=== PATIENT | female | born 1940 | race Hispanic/Latino ===

== ENCOUNTER 2016-09-18 14:35 | Observation (INO) | payer MEDICARE, BC ==
[2016-09-18 14:35] VITALS: BMI 26.6
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
[2016-09-18 16:49] LABS: ADD MANUAL DIFF? NO
[2016-09-18 17:00] LABS: BASO # 0.01 K/mm3 (0.0-2.0); BASO % 0.1 % (0.0-3.0); EOS % 0.5 % (1.5-5.0); GRAN # 6.95 (1.4-6.5); GRAN % 78.8 % (50.0-68.0); HEMATOCRIT 40.9 % (36.0-48.0); LYMPH # 1.2 (1.2-3.4); LYMPH % 13.2 % (22.0-35.0); MEAN CELL VOLUME 92.1 fL (80.0-105.0); MEAN CORPUSCULAR HEMOGLOBIN 29.1 pg (25.0-35.0); MEAN CORPUSCULAR HGB CONC 31.5 g/dl (31.0-37.0); MEAN PLATELET VOLUME 9.8 fl (7.0-11.0); MONO # 0.7 (0.1-0.6); MONO % 7.4 % (1.0-6.0); PLATELET COUNT 286 10^3/uL (120.0-450.0); RED CELL DISTRIBUTION WIDTH 13.9 % (11.5-14.5); WHITE BLOOD COUNT 8.8 10^3/ul (4.5-11.0)
[2016-09-18 17:05] LABS: ALB/GLOB RATIO 1.2 (1.1-1.8); ALKALINE PHOSPHATASE 120 U/L (38-133); ALT/SGPT 23 U/L (7-56); AST/SGOT 25 U/L (15-39); BILIRUBIN,TOTAL 0.5 mg/dL (0.2-1.3); BLOOD UREA NITROGEN 24 mg/dL (7-21); CALCIUM 9.7 mg/dL (8.4-10.5); CARBON DIOXIDE 29 mmol/L (21-33); CHLORIDE 96 mmol/L (98-107); GFR AFRICAN-AMERICAN > 60; GLUCOSE,RANDOM 103 mg/dL (70-110); LIPASE 34 U/L (23-300); SODIUM 134 mmol/L (132-148); TOTAL PROTEIN 7.1 g/dL (5.8-8.3)
[2016-09-18 17:06] LABS: PARTIAL THROMBOPLASTIN TIME 37.1 Seconds (23.7-30.8)
--- NOTE | 2016-09-18 17:12 | RAD ---
HISTORY: cough COMPARISON: Comparison is made to 06/20/2015 FINDINGS: LUNGS: Small linear opacity at the right lung base likely atelectasis. Otherwise no significant interval change. PLEURA: No significant pleural effusion identified, no pneumothorax apparent. CARDIOVASCULAR: Normal. OSSEOUS STRUCTURES: No significant abnormalities. VISUALIZED UPPER ABDOMEN: Normal. OTHER FINDINGS: None. IMPRESSION: Linear opacity at the right lung base likely atelectasis. Otherwise no interval change.
[2016-09-18 17:20] LABS: TROPONIN I < 0.01 ng/mL
[2016-09-19] MEDS ORDERED: Levothyroxine 150 MCG TAB PO SCH (07:30)
--- NOTE | 2016-09-19 07:42 | CT ---
PROCEDURE: CT Abdomen and Pelvis without intravenous contrast HISTORY: nv COMPARISON: Comparison is made to the previous study dated 03/21/2015 TECHNIQUE: Axial and reformatted coronal and sagittal CT images of the abdomen and pelvis were obtained without IV or oral contrast administration.. Contrast Dose: 0 Radiation dose: Total exam DLP = 904.58 mGy-cm. FINDINGS: LOWER THORAX: Small to moderate size hiatus hernia is noted. Trace bilateral pleural effusion and/or pleural thickening at the lung bases is also noted. LIVER: Mild splenomegaly is seen. GALLBLADDER AND BILE DUCTS: Patient status post cholecystectomy. PANCREAS: No evidence of acute pathology in the pancreas. SPLEEN: Unremarkable. ADRENALS: Nodular appearance and mild enlargement of the adrenal glands is again noted bilaterally left more than right which could be due to adrenal hyperplasia. KIDNEYS AND URETERS: Unremarkable. No hydronephrosis. No solid mass. VASCULATURE: Unremarkable. No aortic aneurysm. BOWEL: Unremarkable. No obstruction. No gross mural thickening. Few scattered colonic diverticulosis are seen without evidence of diverticulitis. APPENDIX: No evidence of appendicitis. PERITONEUM: Unremarkable. No free fluid. No free air. LYMPH NODES: Unremarkable. No enlarged lymph nodes. BLADDER: Unremarkable. REPRODUCTIVE: Unremarkable. BONES: No evidence of acute pathology in the osseous structures. Mild levoscoliosis is seen. Mild degenerative changes. OTHER FINDINGS: None. IMPRESSION: Small to moderate size hiatus hernia appears larger compared to the previous exam. Colonic diverticulosis without evidence of diverticulitis. Stable mildly enlarged nodular adrenal glands likely represent benign hyperplasia. Otherwise no evidence of acute pathology in the abdomen and pelvis. Preliminary report was submitted by [facility].
[2016-09-19 08:21] VITALS: O2SAT 95
--- NOTE | 2016-09-19 10:43 | RAD ---
HISTORY: cough COMPARISON: Comparison is made to the previous study dated 09/18/2016 FINDINGS: LUNGS: No significant interval change in the lungs. PLEURA: No significant pleural effusion identified, no pneumothorax apparent. CARDIOVASCULAR: The cardiac silhouette is mildly enlarged. OSSEOUS STRUCTURES: No significant abnormalities. VISUALIZED UPPER ABDOMEN: Normal. OTHER FINDINGS: None. IMPRESSION: No significant interval change compared to the previous study.
[2016-09-19 12:59] VITALS: BP 153/73; PULSE 12; RESP 20; TEMP 98.7
--- NOTE | 2016-09-19 15:05 | CON ---
DATE: 09/19/2016 INDICATIONS: Chest pain. HISTORY OF PRESENT ILLNESS: This is a 76-year-old group home resident who was brought to the Emergency Room yesterday because of sudden onset of nausea, vomiting, and chest discomfort. The information is mostly from the hospital record, the patient is a very limited historian. She does recall vomiting and not feeling well. According to the record, there was chest discomfort reported. She does not have chest pain today. She also denies shortness of breath and other cardiac symptoms. She is resting comfortably in bed. There has been no further vomiting. There is no fever, chills, cough, sputum production, hemoptysis, abdominal pain, nausea, vomiting this morning, diarrhea , constipation, or melena. There is no orthopnea, PND, syncope, presyncope, lightheadedness, dizziness, vertigo, palpitations, edema or claudication. PAST MEDICAL HISTORY: Obtained from the old record. There is a history of bipolar disorder, psychiatric illness, hypertension, hyperlipidemia, hypothyroidism, osteoarthritis chiefly involving the knees, urinary tract infection, and there is a hiatal hernia on her CAT scan. There is no history of rheumatic fever, myocardial infarction, angina, congestive heart failure, arrhythmia, diabetes, stroke, TIA, or gout. MEDICATIONS: At the time of admission, her medications include calcium and vitamin D, Depakote, trazodone, Lipitor, a multivitamin, Seroquel and Synthroid. ALLERGIES: SHE NOTES AN ALLERGY TO CODEINE. SOCIAL HISTORY: She lives in a group home. She does not smoke cigarettes or drink alcohol. FAMILY HISTORY: Not obtainable. REVIEW OF SYSTEMS: A 10-point review of systems is limited, but otherwise unremarkable except as noted above. PHYSICAL EXAMINATION: GENERAL: She is a well-developed elderly woman lying in bed, in no acute distress. VITAL SIGNS: Unremarkable. She is in sinus rhythm at 75 beats per minute. She is afebrile, blood pressure 126/62, respirations 18, O2 sat 95-100% on room air. HEENT: Reveals no neck vein distention, thyromegaly, or carotid bruits. Mucous membranes are moist. Conjunctivae are pink. NECK: Supple. CHEST: Lung hernandez clear. HEART: Revealed normal first and second heart sounds without murmur, gallop, rub or click. ABDOMEN: Soft, bowel sounds are present. No mass, organomegaly, tenderness, rebound, or guarding. No CVA tenderness. No palpable abdominal aortic aneurysm. EXTREMITIES: Revealed no cyanosis, clubbing, or edema. NEUROLOGIC: She is awake, alert and oriented. SKIN: Warm and dry. No rash or cellulitis. PSYCHIATRIC: Normal as to mood and affect. She seems to have poor memory. LABORATORY AND IMAGING: A chest x-ray was a portable study. There was atelectasis at the right base, otherwise unremarkable chest x-ray which was unchanged. EKG demonstrates regular sinus rhythm and is within normal limits. CBC is unremarkable. PT, PTT and INR unremarkable. Electrolytes, BUN, creatinine, blood sugar, LFTs unremarkable. CK 50. Troponin less than 0.01. Lipase 34. IMPRESSION: The patient is a 76-year-old woman, group home resident with psychiatric disorder, admitted with an episode of sudden onset nausea, vomiting , chest discomfort at the group home with a benign electrocardiogram and a negative first troponin. The symptoms have resolved at this time. An echocardiogram 2 years ago demonstrated normal left ventricular function with mild to moderate tricuspid regurgitation and pulmonary hypertension noted. At this time, I have ordered a repeat EKG for the morning. A troponin is pending. If these are unremarkable, I would consider the episode to have been an isolated episode of gastrointestinal symptoms and I would not pursue any additional cardiac studies unless symptoms recur. I anticipate early return to her group home and continuation of her usual medications. Seth Miramontes MD cc: [id number] TT: 09/19/2016 15:05:05 Confirmation # [id number] Dictation # [id number] DESHPANDE
--- NOTE | 2016-09-19 17:48 | CARD ---
APPROVED REPORT EKG Measurement Heart [id number] VA [id number] <Conclusion> Normal sinus rhythm Normal ECG
--- NOTE | 2016-09-19 18:12 | CARD ---
APPROVED REPORT EKG Measurement Heart [id number] TN [id number] <Conclusion> Normal sinus rhythm Normal ECG
--- NOTE | 2016-09-19 21:10 | HP ---
CHIEF COMPLAINT AND HISTORY OF PRESENT ILLNESS: This is a 76-year-old female who is [facility], because of chest pain. The patient was having her lunch and she developed retr osternal chest pain with nausea after she vomited, but it is not clear whether the chest pain started before the vomiting or after she is not able to give much of a history. She denies any headaches or dizziness, no nausea, no vomiting. REVIEW OF SYMPTOMS: Limited. ALLERGIES: CODEINE. PAST MEDICAL HISTORY: Dyslipidemia, hypertension, hypothyroidism, nephrolithiasis, anxiety, depress ion, GERD. PAST SURGICAL HISTORY: Appendectomy, cholecystectomy. HOME MEDICATIONS: Synthroid. FAMILY HISTORY: Unable to assess. SOCIAL HISTORY: Unable to assess. PHYSICAL EXAMINATION: VITAL SIGNS: Temperature 98.7, pulse of 75, blood pressure 126/62, respirations 18, O2 saturation 95 %. GENERAL: The patient comfortable, in no acute distress. HEENT: Anicteric sclerae. Moist mucosa. NECK: No JVD or adenopathy. CARDIAC: S1/S2. No murmurs. No rubs. Regular. RESPIRATORY: Clear to auscultation bilaterally. No wheezes, rales, or rhonchi. Good air entry. ABDOMEN: Bowel sounds are positive, soft, nontender, and nondistended. EXTREMITIES: No edema. Has 1+ pulses. PSYCHIATRIC: She is alert, awake, and oriented x 1. She has no hallucinations. She denies depressi on. LABORATORY DATA: White count of 8.8, hemoglobin 12.9, platelet count 286. INR is 1.0. She has 2 tr oponins that are negative. Creatinine 0.7. Chest x-ray shows linear opacity at the right lung base. The CT shows small to moderate-sized hiatal hernia. Appears large volume compared to the previous ex am. ECG shows sinus rhythm at 69, no ST-T changes, QTc 415. ASSESSMENT: 1. Chest pain, atypical. 2. Vomiting. 3. Hypertension. 4. Dyslipidemia. 5. Anxiety PLAN: The patient was admitted to the hospital. She was given aspirin, Protonix, nitroglycerin. Sh e was comfortable. She was seen by Dr. Miramontes from Cardiology. She is chest pain free. She most li rito had symptoms secondary to her nausea and vomiting after she ate. She is going to be discharged to the facility at Dr. Kulwinder Auguste cleared the patient to be discharged. Sj Bolden MD cc: [id number] TT: 09/19/2016 21:09:26 ln
[2016-09-19] MEDS ORDERED: Divalproex 500 mg ER (ONCE DAILY formulation) PO SCH (22:00)
== END 2016-09-19 17:45 ==
LOC: ED 14:35 → ERH 18:58 → 2RSO 09-19 04:11
PROVIDERS: ADMIT Internal Medicine Nephrology; ATTEND Internal Medicine Nephrology
DX: R07.89 Other chest pain (principal); I10 Essential (primary) hypertension; E78.5 Hyperlipidemia, unspecified; F41.9 Anxiety disorder, unspecified; K44.9 Diaphragmatic hernia without obstruction or gangrene; K57.90 Diverticulosis of intestine, part unspecified, without perforation or abscess without bleeding; K21.9 Gastro-esophageal reflux disease without esophagitis; E03.9 Hypothyroidism, unspecified; F31.9 Bipolar disorder, unspecified; M17.0 Bilateral primary osteoarthritis of knee; I36.1 Nonrheumatic tricuspid (valve) insufficiency; I27.2 Other secondary pulmonary hypertension; Z87.442 Personal history of urinary calculi; Z90.49 Acquired absence of other specified parts of digestive tract; Z88.5 Allergy status to narcotic agent
CPT/HCPCS: 36415; 71010; 74176; 80053; 82550; 83615; 83690; 84484; 85025; 85610; 85730; 93005; 96374; 96375; 99285; C9113; G0378; J2405

== ENCOUNTER 2016-11-03 23:26 | Inpatient (IN) | payer MEDICARE, BC ==
[2016-11-03 23:32] VITALS: BMI 35.1
[2016-11-04] MEDS ORDERED: Famotidine 20mg/50ml 20 MG/50 ML BAG IV STA (00:03)
--- NOTE | 2016-11-04 00:14 | ED PDOC ---
Arrival/HPI - General Chief Complaint: Chest Pain Time Seen by Provider: 11/03/16 23:40 Historian: Patient - History of Present Illness Narrative History of Present Illness (Text): 11/04/16 00:10 A 76 year old female presents to the emergency department by EMS. Patient reports one episode of vomiting, non-bilious, non-bloody. Patient also notes retrosternal and epigastric discomfort, that feels similar to previous. Patient denies any other complaints at this time. Symptom Onset: Sudden Symptom Course: Unchanged Activities at Onset: Rest Modifying Factors (Text): none Context: Home Past Medical History - Provider Review Nursing Documentation Reviewed: Yes - Past History Past History: Non-Contributing - Infectious Disease Hx of Infectious Diseases: None - Tetanus Immunization Tetanus Immunization: Unknown - Reproductive Menopause: Yes - Past Medical History Past Medical History: Unable to Obtain - Cardiac Hx Cardiac Disorders: No Hx Congestive Heart Failure: No Hx Hypertension: Yes - Pulmonary Hx Chronic Obstructive Pulmonary Disease (COPD): No - Neurological Hx Neurological Disorder: No - HEENT Hx HEENT Disorder: No - Renal Hx Renal Failure: No - Endocrine/Metabolic Hx Diabetes Mellitus Type 1: No Hx Diabetes Mellitus Type 2: No Hx Hypothyroidism: Yes - Hematological/Oncological Hx Blood Disorders: No - Integumentary Hx Dermatological Disorder: No Hx Basal Cell Carcinoma: No Hx Eczema: No Hx Melanoma: No Hx Psoriasis: No Hx Squamous Cell Carcinoma: No - Musculoskeletal/Rheumatological Hx Falls: No - Gastrointestinal Hx Gastrointestinal Disorders: Yes Hx Colostomy: No Hx Crohn's Disease: No Hx Diverticulitis: No Hx Gall Bladder Disease: No Hx Gastroesophageal Reflux: Yes Hx Ileostomy: No Hx Liver Failure: No Hx Pancreatitis: No HX Swallowing Problems: No - Genitourinary/Gynecological Hx Sexually Transmitted Diseases: No - Psychiatric Hx Bipolar Disorder: Yes Hx Depression: Yes Hx Substance Use: No - Past Surgical History Past Surgical History: Unable to Obtain - Surgical History Hx Appendectomy: Yes - Anesthesia Hx Anesthesia: Yes Hx Anesthesia Reactions: No Hx Malignant Hyperthermia: No - Suicidal Assessment Feels Threatened In Home Enviroment: No Family/Social History - Physician Review Nursing Documentation Reviewed: Yes Family/Social History: No Known Family HX Smoking Status: Current Some Days Smoker Hx Alcohol Use: No Hx Substance Use: No Hx Substance Use Treatment: No Allergies/Home Meds Allergies/Adverse Reactions: Allergies codeine Allergy (Verified 07/20/15 06:07) RASH Home Medications: Home Meds Medication Instructions Recorded Confirmed Levothyroxine [Synthroid] 125 mcg PO ACB 06/20/15 11/03/16 Benztropine [Cogentin] 1 tab PO BID 11/03/16 11/03/16 Dextran 70/Hypromellose 2 drop BOTHEYES BID 11/03/16 11/03/16 [Artificial Tears] FLUoxetine [Prozac] 1 cap PO DAILY 11/03/16 11/03/16 Lisinopril [Zestril] 1 tab PO DAILY 11/03/16 11/03/16 OLANZapine [Zyprexa] 1 tab PO DAILY 11/03/16 11/03/16 Review of Systems - Physician Review All systems were reviewed & negative as marked: Yes Physical Exam - Physical Exam Narrative Physical Exam (Text): 11/04/16 00:12 - Review of Systems Constitutional: Normal. absent: Fatigue, Weight Change, Fevers Eyes: Normal ENT: Normal Respiratory: Normal absent: SOB, Cough, Sputum Cardiovascular: Present: retrosternal/epigastric chest discomfort absent: Palpitations, Syncope Gastrointestinal: Present: vomiting (non-bilious, non-bloody) absent: Abdominal pain, Diarrhea, Nausea Genitourinary: Normal. absent: Dysuria, Frequency, Hematuria Musculoskeletal: Normal. absent: Arthralgias, Back Pain, Neck Pain Skin: Normal Neurological: Normal absent: Focal Weakness Endocrine: Normal Hemo/Lymphatic: Normal Psychiatric: Normal - Physical exam Patient appears age appropriate, speaking full sentences without difficulty - Systems Exam Head: Present: Atraumatic, Normocephalic Pupils: Present: PERRL Extraocular Muscles: Present: EOMI Conjunctiva: Present: Normal Mouth: Present: Moist Mucous Membranes Neck: Present: Normal Range of Motion. No: MIDLINE TENDERNESS, Paraspinal Tenderness Respiratory/Chest: Present: Clear to Auscultation, Good Air Exchange. No: Respiratory Distress, Accessory Muscle Use, Tachypneic Cardiovascular: Present: Regular Rate and Rhythm, Normal S1, S2, Peripheral Pulses Present. No: Murmurs Abdomen: Present: Normal Bowel Sounds, No: Tenderness, Peritoneal Signs, Rebound, Guarding, Distention Back: Present: Normal Inspection. No: Midline Tenderness, Paraspinal Tenderness Upper Extremity: Present: Normal Inspection. No: Cyanosis, Edema Lower Extremity: Present: Normal Inspection. No: Edema Neurological: Present: GCS=15, Speech Normal, cranial nerves II through XII fully intact with no cerebellar abnormality, neuro-sensory fully intact. No focal neurological deficits. Skin: Present: Warm, Dry, Normal Color. No: Rashes Lymphatic: Present: OX3, NI, NC Psychiatric: Present: Alert No: anxiety Vital Signs Reviewed: Yes Vital Signs Temp Pulse Resp BP Pulse Ox 11/04/16 00:31 76 22 113/81 96 11/03/16 23:44 97.5 F L 79 16 138/86 93 L Temperature: Afebrile Blood Pressure: Normal Pulse: Regular Respiratory Rate: Normal Appearance: Positive for: Well-Appearing, Non-Toxic, Comfortable Pain Distress: None Mental Status: No: Agitated, Lethargic Medical Decision Making ED Course and Treatment: 11/04/16 00:10 Impression: 76 year old female with retrosternal/epigastric chest discomfort, and one episode of vomiting (non-bilious, non-bloody). On physical exam, patient had no acute findings. Differential Diagnosis include but are not limited to: Plan: -- CT abd/pelvis -- Chest xray -- Labs -- Aspirin, Zofran, Pepcid -- Reassess and disposition Prior Visits: Notes and results from previous visits were reviewed. Patient last seen in the emergency department on 09/18/16 for evaluation of chest pain. Case was discussed with Dr. Bolden, tele obs. Patient was discharged on 09/19/16. Patient was diagnosed with atypical chest pain. Progress Notes: CT abd/pelvis: IMPRESSION: Distal esophageal wall thickening and moderately large hiatal hernia ; prior cholecystectomy; adrenal nodules; diverticulosis without CT findings of diverticulitis; no acute solid visceral abnormality, no bowel obstruction Additional findings as described above. Dictated and Authenticated by: Sonali Horan MD 11/04/2016 1:19 AM Eastern Time ([place] & [place]) Chest xray: Chest xray shows no cardiomegaly, no pneumothorax, no effusion, no infiltrates. 11/04/16 01:[address] Bolden, who is aware and agrees with observation on Tele. I have discussed the results and plan with the patient, who expresses understanding. Patient given the opportunity to ask question, all questions were answered and there is agreement with the plan to be admitted to the hospital. - Lab Interpretations Lab Results: 11/04/16 00:10 11/04/16 00:10 Lab Results 11/04/16 00:10: Sodium 136, Potassium 4.3, Chloride 99, Carbon Dioxide 27, Anion Gap 14, BUN 19, Creatinine 0.7, Est GFR ( Amer) > 60, Est GFR (Non- Af Amer) > 60, Random Glucose 115 H, Calcium 9.6, Total Bilirubin 0.7, AST 29, ALT 29, Alkaline Phosphatase 103, Lactate Dehydrogenase 560, Total Creatine Kinase 37, Troponin I < 0.01, NT-Pro-B Natriuret Pep 34.3, Total Protein 7.3, Albumin 3.8, Globulin 3.5, Albumin/Globulin Ratio 1.1, Lipase 36 11/04/16 00:10: PT 10.0, INR 0.93, APTT 33.1 H 11/04/16 00:10: WBC 6.5 D, RBC 4.36, Hgb 13.0, Hct 39.8, MCV 91.3, MCH 29.8, MCHC 32.7, RDW 14.0, Plt Count 273, MPV 9.9, Gran % 67.5, Lymph % (Auto) 23.0, Hemphill % (Auto) 7.3 H, Eos % (Auto) 2.0, Baso % (Auto) 0.2, Gran # 4.37, Lymph # 1.5, Hemphill # 0.5, Eos # 0.1, Baso # 0.01 I have reviewed the lab results: Yes - RAD Interpretation Radiology Orders: 11/04/16 00:03 CHEST PORTABLE [RAD] Stat 11/04/16 00:04 ABD & PELVIS W/O PO OR IV CONT [CT] Stat - Medication Orders Current Medication Orders: Discontinued Medications Aspirin (Aspirin Chewable) 324 mg PO STAT STA Stop: 11/04/16 00:03 Last Admin: 11/04/16 00:21 Dose: 324 mg Famotidine (Pepcid 20mg/50ml Premix) 20 mg in 50 mls @ 100 mls/hr IV STAT STA Stop: 11/04/16 00:32 Last Admin: 11/04/16 00:21 Dose: 100 mls/hr Ondansetron HCl (Zofran Inj) 4 mg IVP STAT STA Stop: 11/04/16 00:04 Last Admin: 11/04/16 00:21 Dose: 4 mg - Rockyibe Statement Singh Love All medical record entries made by the Timothy were at my direction and personally dictated by me. I have reviewed the chart and agree that the record accurately reflects my personal performance of the history, physical exam, medical decision making, and the department course for this patient. I have also personally directed, reviewed, and agree with the discharge instructions and disposition. Disposition/Present on Arrival - Present on Arrival Any Indicators Present on Arrival: No History of DVT/PE: No History of Uncontrolled Diabetes: No Urinary Catheter: No History of Decub. Ulcer: No History Surgical Site Infection Following: None - Disposition Have Diagnosis and Disposition been Completed?: Yes Diagnosis: Chest pain Disposition: HOSPITALIZED Disposition Time: 01:40 Patient Plan: Observation Condition: STABLE
[2016-11-04 00:20] LABS: ADD MANUAL DIFF? NO
[2016-11-04 00:28] LABS: BASO # 0.01 K/mm3 (0.0-2.0); BASO % 0.2 % (0.0-3.0); EOS # 0.1 (0.0-0.7); GRAN # 4.37 (1.4-6.5); GRAN % 67.5 % (50.0-68.0); HEMATOCRIT 39.8 % (36.0-48.0); LYMPH # 1.5 (1.2-3.4); MEAN CELL VOLUME 91.3 fL (80.0-105.0); MEAN CORPUSCULAR HEMOGLOBIN 29.8 pg (25.0-35.0); MEAN CORPUSCULAR HGB CONC 32.7 g/dl (31.0-37.0); MEAN PLATELET VOLUME 9.9 fl (7.0-11.0); MONO # 0.5 (0.1-0.6); MONO % 7.3 % (1.0-6.0); PLATELET COUNT 273 10^3/uL (120.0-450.0); WHITE BLOOD COUNT 6.5 10^3/ul (4.5-11.0)
[2016-11-04 00:40] LABS: INR 0.93 (0.93-1.08); PARTIAL THROMBOPLASTIN TIME 33.1 Seconds (23.7-30.8)
[2016-11-04 00:47] LABS: ALB/GLOB RATIO 1.1 (1.1-1.8); ALKALINE PHOSPHATASE 103 U/L (38-133); ALT/SGPT 29 U/L (7-56); AST/SGOT 29 U/L (15-39); BILIRUBIN,TOTAL 0.7 mg/dL (0.2-1.3); BLOOD UREA NITROGEN 19 mg/dL (7-21); CALCIUM 9.6 mg/dL (8.4-10.5); CARBON DIOXIDE 27 mmol/L (21-33); CHLORIDE 99 mmol/L (98-107); GFR AFRICAN-AMERICAN > 60; GLUCOSE,RANDOM 115 mg/dL (70-110); LIPASE 36 U/L (23-300); POTASSIUM 4.3 mmol/L (3.6-5.0); SODIUM 136 mmol/L (132-148); TOTAL PROTEIN 7.3 g/dL (5.8-8.3)
[2016-11-04 01:00] LABS: TROPONIN I < 0.01 ng/mL
--- NOTE | 2016-11-04 01:19 | CT ---
EXAM: CT Abdomen and Pelvis Without Intravenous Contrast CLINICAL HISTORY: 76 years old, female; Pain; Abdominal pain; Additional info: N/v TECHNIQUE: Axial computed tomography images of the abdomen and pelvis without intravenous contrast. This CT exam was performed using one or more of the following dose reduction techniques: automated exposure control, adjustment of the mA and/or kV according to patient size, and/or use of iterative reconstruction technique. Coronal and sagittal reformatted images were created and reviewed. EXAM DATE/TIME: 11/04/2016 12:04 AM COMPARISON: CT - ABD PELVIS W/O PO OR IV CONT 09/18/2016 5:20:17 PM FINDINGS: Lower thorax: Heart size is normal. There are coronary calcifications. There is a moderately large hiatal hernia. There is distal esophageal wall thickening. Lung bases are hyperinflated. There is dependent atelectasis and scarring. ABDOMEN: Liver: unremarkable Gallbladder and bile ducts: Gallbladder is surgically absent. Common bile duct is unremarkable. Pancreas: Pancreas is mildly atrophic. Spleen: unremarkable Adrenals: There are bilateral adrenal nodules. Kidneys and ureters: Kidneys and ureters are unremarkable. Stomach and bowel: Stomach is partially distended. Rotation is normal. There is no obstruction. Terminal ileum is unremarkable. There is a cecal diverticulum. Appendix is not visualized. There is moderate stool in the colon. There is scattered diverticulosis Appendix: See stomach and bowel PELVIS: Bladder: unremarkable Reproductive: Uterus is atrophic. There are small uterine calcifications. There are no adnexal masses. There is small calcifications in the right adnexa. ABDOMEN and PELVIS: Intraperitoneal space: There is no free air or free fluid. Bones/joints: Bony structures are osteopenic.There are degenerative changes in the osseus structures. There is ankylosis of the T6, T7 and T8 vertebral bodies. There is marked disc space narrowing L5/S1. Soft tissues: There is a small fat containing umbilical hernia Vasculature: There are vascular calcifications. Lymph nodes: There is no pathologic adenopathy. IMPRESSION: Distal esophageal wall thickening and moderately large hiatal hernia; prior cholecystectomy; adrenal nodules; diverticulosis without CT findings of diverticulitis; no acute solid visceral abnormality, no bowel obstruction Additional findings as described above.
--- NOTE | 2016-11-04 10:52 | RAD ---
HISTORY: cough COMPARISON: No prior. FINDINGS: LUNGS: No active pulmonary disease. PLEURA: No significant pleural effusion identified, no pneumothorax apparent. CARDIOVASCULAR: Normal. OSSEOUS STRUCTURES: No significant abnormalities. VISUALIZED UPPER ABDOMEN: Normal. OTHER FINDINGS: None. IMPRESSION: No active disease.
[2016-11-04] MEDS: Levothyroxine 125 MCG TAB PO SCH (11:01)
--- NOTE | 2016-11-04 12:00 | HP ---
HISTORY OF PRESENT ILLNESS: The patient is a 76-year-old who is a resident of [facility] who was transferred for evaluation because of epigastric leading to retrosternal discomfort. The p atient stated as soon as she eats, she feels a ball and thinks is moving around. Usually the pain an d discomfort is more after eating. Vomited at one time and never happened again. No history of feve r or chills. No urinary symptoms. PAST MEDICAL HISTORY: 1. Generalized osteoarthritis. 2. Bipolar disorder. 3. Paranoid schizophrenia. 4. Hypertension. 5. Hyperlipidemia. 6. Hypothyroidism. 7. Hiatal hernia by CT scan. ALLERGIES: CODEINE. MEDICATIONS: In the alf she is on Zyprexa 10 mg daily, lisinopril 10 mg daily, levothyroxin e 125 mcg daily. Prozac 20 mg daily, Cogentin 1 tablet twice a day and she is on artificial tears and atorvastatin. SOCIAL HISTORY: She is a . She occasionally smokes. Denies alcohol use. REVIEW OF SYSTEMS: Significant for retrosternal discomfort and chest discomfort. PHYSICAL EXAMINATION: GENERAL: She is awake and alert, communicative. VITAL SIGNS: She is afebrile, pulse 60, respirations 18, blood pressure 136/70. LUNGS: Bilateral fair airflow, no rhonchi or crackle. HEART: S1, S2 audible. ABDOMEN: Soft, nontender, no rebound, no guarding. She has epigastric discomfort and fullness and d oes complain of some discomfort on deep palpation, but no rebound, no guarding. NEUROLOGIC: She is awake and alert, communicative. EXTREMITIES: Bilateral leg, no edema. LABORATORY DATA: WBC 6.5, hemoglobin 13, hematocrit 39.8, platelet of 273. PT 10, INR 0.93. Chemis try: Sodium 136, potassium 4.3, chloride 99, CO2 27, BUN 19, creatinine 0.7, blood sugar 115. LFTs are within normal limits. She had CT scan of the abdomen and pelvis done that shows distal esophagea l wall thickening and moderately large hiatal hernia and prior cholecystectomy and nodule. She has d iverticulosis, but no evidence of diverticulitis. No other visual abnormality. ASSESSMENT: 1. Probably noncardiac chest pain secondary to esophagitis versus gastroesophageal reflux disease al delfina with hiatal hernia. 2. History of paranoid schizophrenia. 3. Hypertension. 4. Hyperlipidemia. PLAN: The patient will need frequent small meals. We have started her on high dose PPI. We will re sume her usual medication. Follow up her cardiac enzymes. Cardiology evaluation by Dr. Miramontes and G I evaluation by Dr. Campbell have been requested. Tasneem Lr MD cc: [phone] TT: 11/04/2016 11:59:24 jn
[2016-11-04 12:20] LABS: CHOLESTEROL 136 mg/dL (130-200)
[2016-11-04 12:40] LABS: TROPONIN I < 0.01 ng/mL
--- NOTE | 2016-11-04 15:35 | CARD ---
APPROVED REPORT EKG Measurement Heart [id number] <Conclusion> Normal sinus rhythm Normal ECG
--- NOTE | 2016-11-04 16:33 | CON ---
DATE: 11/04/2016 REQUESTING PHYSICIAN: Dr. Lr. REASON FOR CONSULTATION: Chest pain. HISTORY OF PRESENT ILLNESS: This is a 76-year-old woman with a history of hypertension, hyperlipidem ia, transferred from [facility] with complaints of retrosternal discomfort. Her symp toms seem to occur following eating where she feels a retrosternal discomfort which takes several min utes to resolve. She denies any exertional component to her symptoms. She says she has had problems with swallowing in the past. She was admitted in the past for similar symptoms as well as nausea an d vomiting. Workup at that time was unremarkable. She does have a history of hypertension and hyper lipidemia. PAST MEDICAL HISTORY: Notable for bipolar disorder, paranoid schizophrenia, osteoarthritis, hypothyr oidism. She has a history of hiatal hernia. MEDICATIONS: [facility] include Zyprexa 10 mg daily, lisinopril 10 mg daily, levothyroxine 125 mcg daily, Prozac 20 mg daily, Cogentin 1 tablet b.i.d. and Lipitor. ALLERGIES: SHE HAS REPORTED ALLERGY TO CODEINE IN THE PAST. SOCIAL HISTORY: She is a retired teacher. She originally moved here from [place]. She smoke s occasionally. She denies alcohol use. She is a . FAMILY HISTORY: Both parents are . Father from myocardial infarction in his 60s and wa s a smoker. Mother from cancer, 3 brothers are in good health. REVIEW OF SYSTEMS: A 10-point review of systems was unremarkable. PHYSICAL EXAMINATION: GENERAL: She is a middle-aged woman who appears comfortable at the present time. VITAL SIGNS: Her blood pressure is 120/70 with a pulse of 86 and sinus, respirations are 14. She is afebrile. HEENT: Normocephalic, atraumatic. NECK: Supple, no JVD noted. CHEST: A few scattered rhonchi heard. HEART: PMI in normal position. No pathologic gallops noted. ABDOMEN: Soft, nontender, normoactive bowel sounds. EXTREMITIES: No clubbing, cyanosis or edema. SKIN: Warm and dry. PSYCHIATRIC: Normal mood and affect. NEUROLOGIC: Alert and oriented x 3. No gross motor or sensory appreciable. DIAGNOSTIC DATA: White count is 6.5, hemoglobin and hematocrit 13.2 and 39.8 with a platelet count 2 73,000. PT, PTT 10 and 33, potassium 4.3, BUN and creatinine 19 and 0.7, glucose 115. Two sets of c ardiac enzymes are normal. Cholesterol was 136 with triglycerides of 101, HDL 47 with an LDL 60. El ectrocardiogram reveals sinus rhythm with no significant abnormalities. Chest x-ray reveals normal c ardiac silhouette with clear lung hernandez. IMPRESSION: 1. Retrosternal chest pain sounds most likely gastrointestinal in nature, possibly due to a dysmotil ity. Doubt cardiac cause. 2. Several cardiac risk factors, but no clear evidence of active cardiac disease present. RECOMMENDATIONS: Gastrointestinal evaluation should be entertained from a cardiac standpoint. Aria wilhelm risk factor control would be most reasonable at this time. If she develops any exertional sympto ms a stress test could be planned. From a cardiac standpoint, she appears stable for [facility]. I will be happy to see in the future if needed. Jimmy Osorio MD cc: [id number] TT: 11/04/2016 16:33:07 Confirmation # [id number] Dictation # [id number] saadia
[2016-11-04] MEDS: Pantoprazole 40 mg EC Tab PO SCH (18:47)
[2016-11-05] MEDS ORDERED: Pantoprazole 40 mg EC Tab PO SCH (06:30)
[2016-11-05] MEDS: Levothyroxine 125 MCG TAB PO SCH (07:35)
[2016-11-05 08:19] LABS: ALB/GLOB RATIO 1.3 (1.1-1.8); ALKALINE PHOSPHATASE 100 U/L (38-133); ALT/SGPT 37 U/L (7-56); AST/SGOT 21 U/L (15-39); BILIRUBIN,TOTAL 0.6 mg/dL (0.2-1.3); BLOOD UREA NITROGEN 18 mg/dL (7-21); CALCIUM 9.6 mg/dL (8.4-10.5); CARBON DIOXIDE 27 mmol/L (21-33); CHLORIDE 99 mmol/L (98-107); GFR AFRICAN-AMERICAN > 60; GLUCOSE,RANDOM 107 mg/dL (70-110); MAGNESIUM 2.2 mg/dL (1.7-2.2); POTASSIUM 4.4 mmol/L (3.6-5.0); SODIUM 136 mmol/L (132-148)
[2016-11-05 08:35] LABS: FREE T4 1.42 ng/dL (0.78-2.19)
[2016-11-05 08:49] LABS: THYROID STIMULATING HORMONE 0.35 mIU/mL (0.46-4.68)
[2016-11-05] MEDS: Pantoprazole 40 mg EC Tab PO SCH ×2 (10:01→17:24)
--- NOTE | 2016-11-05 14:42 | PN ---
DATE: 11/05/2016 The patient is a 76-year-old who was admitted with retrosternal discomfort. She had this issue befor e, but it got worse prior to coming to the hospital. She vomited once. PHYSICAL EXAMINATION: GENERAL: Today, she is still complaining of epigastric discomfort. No documented nausea or vomiting . VITAL SIGNS: She is afebrile, pulse 81, respirations 20, blood pressure 117/65. LUNGS: Bilateral fair airflow, no rhonchi or crackle. HEART: S1, S2 audible. ABDOMEN: Soft, obese, nontender, no rebound, no guarding. NEUROLOGIC: She is awake and alert, communicative. Moves all extremities. ASSESSMENT: 1. Retrosternal discomfort. No cardiac reason. 2. Gastroesophageal reflux disease. 3. Hiatal hernia. 4. Gastroesophageal junction thickening. 5. Mild dementia. 6. Hypertension. 7. Hyperlipidemia. 8. Dementia with paranoia. PLAN: I discussed with Dr. Campbell. Ideally speaking, she needs endoscopy to evaluate that gastroe sophageal junction thickening. Will talk to spray gun striper. If she is medically stable, he would like to do endoscopy. He will reach out to the family member to discuss and will make disposition plan a ccording to the decision that will be made. Tasneem Lr MD cc: [phone] TT: 11/05/2016 14:41:25 Confirmation # [id number] Dictation # [id number] en
--- NOTE | 2016-11-05 17:23 | PN ---
DATE: 11/05/2016 SUBJECTIVE: This patient was seen and evaluated earlier today, feels much better, but still has some mild discomfort. No vomiting. Tolerating the diet. PHYSICAL EXAMINATION: VITAL SIGNS: Remains afebrile, pulse 81, respirations 20, blood pressure is 117 /65. HEENT: Atraumatic, anicteric. NECK: Supple. HEART: S1, S2 heard. LUNGS: Bilateral normal vesicular breath sounds. ABDOMEN: Soft. There is a mild tenderness on deep palpation in the epigastric area. EXTREMITIES: No edema, no cyanosis. NEUROLOGIC: Alert, oriented. Moves all the extremities. IMPRESSION: Atypical chest pain. epigastric pain. Abdominal CAT scan showing some distal esophageal thickening. It could be esophageal ulcerations. His other comorbidities include a history of pancreatic cystic lesion. He was seen by Dr. Skinner at [facility] and she was told it was okay. I do not find any clear documentations of the cyst in the previous scan. Other comorbidities include hypertension, dyslipidemia and dementia. RECOMMENDATIONS: We will discuss with the family members regarding the upper GI endoscopy. Will continue the PPI. Akash Campbell MD cc: [phone] TT: 11/05/2016 17:23:29 Confirmation # [id number] Dictation # [id number] juan DESHPANDE
--- NOTE | 2016-11-05 21:27 | CON ---
DATE: 11/04/2016 This patient was seen and evaluated earlier. This 76-year-old residential resident with a past medi tawnya history of bipolar disorder, paranoid schizophrenia, hypertension, dyslipidemia, hypothyroidism, was admitted following transfer from the residential for abdominal discomfort and also vomiting. Preeti paulino complains of discomfort in the lower chest, upper abdominal area. She was concerned because of the discomfort was significant. No vomiting blood. No fever. OTHER PAST MEDICAL HISTORY: Is significant as above. The patient did have questionable pancreatic c ystic lesions in the past. An was done by Dr. Skinner more than 2 or 3 years ago. The patient had a colonoscopy done in 01/2014, and was found to have only diverticulosis, history of colon polyps. The patient was followed by Dr. Talon Stephen. The patient status post cholecystectomy. SOCIAL HISTORY: The patient is a smoker, denies alcohol use. PHYSICAL EXAMINATION: GENERAL: The patient is lying on the bed, not in acute distress. VITAL SIGNS: Temperature 97.5, pulse 72, blood pressure is 110/75, respirations 19, O2 sat is 96%. HEENT: Atraumatic, anicteric. NECK: Supple. HEART: S1, S2 heard. LUNGS: Bilateral air entry present. ABDOMEN: Soft. There was tenderness present, mild, on palpation of the epigastric area. EXTREMITIES: No cyanosis or clubbing. LABORATORY DATA: Hemoglobin 13, hematocrit 39.8, WBC 6.5, platelets 276. LFTs are essentially unrem arkable. The CT scan of the abdomen and pelvis was done, which was reviewed. This was done without p.o. or IV contrast, and found to have distal esophageal thickening and moderately large hiatus herni a. IMPRESSION: Episodes of vomiting, atypical chest pain. The patient's CAT scan shows distal thickeni ng of the esophagitis and hiatus hernia. The differential diagnosis should include esophagitis, ulce ration and neoplasia also to be considered as a differential diagnosis. The patient has been followe d by the sports complex attendant. RECOMMENDATIONS: 1. PPI 2. I will consider upper GI endoscopy after cardiac clearance. Thank you very much for allowing us to participate in the care of the patient. We will continue to c losely follow up her care and suggest further management based on the clinical course. Akash Campbell MD cc: [phone] TT: 11/05/2016 21:27:06 Confirmation # [id number] Dictation # [id number] dn
--- NOTE | 2016-11-05 23:53 | CP.PCM.PN ---
Subjective - Date & Time of Evaluation Date of Evaluation: 11/05/16 Time of Evaluation: 23:43 - Subjective Subjective: Patient was seen at bedside because as per nurse her mental status has changed. When questions were asked to check status of orientation patient started giving answers that were not consistent. Finger stick was 129 mg%. Medical record was reviewed. This 76 year old white woman was admitted epigastric / retrosternal pain, esophagitis, GERD. Has PMH of HTN, HLD, osteoarthritis, bipolar disorder, schizophrenia, hypothyroidism. Objective - Vital Signs/Intake and Output Vital Signs (last 24 hours): Temp Pulse Resp BP Pulse Ox 98 F 77 18 133/80 96 11/05/16 19:30 11/05/16 22:00 11/05/16 19:30 11/05/16 19:30 11/05/16 06:00 - Medications Medications: Current Medications Atorvastatin Calcium (Lipitor) 20 mg PO DAILY [facility] Last Admin: 11/05/16 10:00 Dose: 20 mg Benztropine Mesylate (Cogentin) 1 mg PO BID [facility] Last Admin: 11/05/16 17:24 Dose: 1 mg Fluoxetine HCl (Prozac) 20 mg PO DAILY [facility] Last Admin: 11/05/16 10:00 Dose: 20 mg Levothyroxine Sodium (Synthroid) 125 mcg PO ACB [facility] Last Admin: 11/05/16 07:35 Dose: 125 mcg Lisinopril (Zestril) 20 mg PO DAILY [facility] Last Admin: 11/05/16 10:01 Dose: 20 mg Olanzapine (Zyprexa) 10 mg PO DAILY [facility] PRN Reason: Protocol Last Admin: 11/05/16 10:00 Dose: 10 mg Pantoprazole Sodium (Protonix Ec Tab) 40 mg PO BID [facility] Last Admin: 11/05/16 17:24 Dose: 40 mg - Labs Labs: 11/05/16 07:57 PT 10.0 Seconds (9.9-11.8) 11/04/16 00:10 INR 0.93 (0.93-1.08) 11/04/16 00:10 APTT 33.1 Seconds (23.7-30.8) H 11/04/16 00:10 - Constitutional Appears: Well, No Acute Distress - Eye Exam Eye Exam: Normal appearance - ENT Exam ENT Exam: Normal External Ear Exam - Neck Exam Neck Exam: Normal Inspection - Respiratory Exam Respiratory Exam: NORMAL BREATHING PATTERN - Cardiovascular Exam Cardiovascular Exam: absent: JVD - GI/Abdominal Exam GI & Abdominal Exam: absent: Distended - Rectal Exam Rectal Exam: Deferred - Extremities Exam Extremities Exam: Normal Inspection - Back Exam Back Exam: NORMAL INSPECTION - Neurological Exam Neurological Exam: Altered, CN II-XII Intact Neuro motor strength exam: Left Upper Extremity: 5, Right Upper Extremity: 5, Left Lower Extremity: 4, Right Lower Extremity: 5 - Psychiatric Exam Psychiatric exam: Depressed - Skin Skin Exam: Warm Assessment and Plan - Assessment and Plan (Free Text) Assessment: A/P:Altered mental status. Sundowning. HTN. HLD. OA. Observation. CBC,CMP,Mg,Phos in AM. FSBS-129 mg %.
[2016-11-06 05:51] LABS: ADD MANUAL DIFF? NO
[2016-11-06 06:34] LABS: ALB/GLOB RATIO 1.2 (1.1-1.8); ALKALINE PHOSPHATASE 92 U/L (38-133); ALT/SGPT 36 U/L (7-56); AST/SGOT 21 U/L (15-39); BILIRUBIN,TOTAL 0.6 mg/dL (0.2-1.3); BLOOD UREA NITROGEN 17 mg/dL (7-21); CALCIUM 9.4 mg/dL (8.4-10.5); CARBON DIOXIDE 28 mmol/L (21-33); CHLORIDE 101 mmol/L (98-107); GFR AFRICAN-AMERICAN > 60; GLUCOSE,RANDOM 111 mg/dL (70-110); MAGNESIUM 2.2 mg/dL (1.7-2.2); PHOSPHOROUS 4.1 mg/dL (2.5-4.5); POTASSIUM 4.4 mmol/L (3.6-5.0); SODIUM 138 mmol/L (132-148); TOTAL PROTEIN 6.4 g/dL (5.8-8.3)
[2016-11-06 07:26] LABS: BASO # 0.01 K/mm3 (0.0-2.0); BASO % 0.1 % (0.0-3.0); EOS # 0.1 (0.0-0.7); EOS % 1.6 % (1.5-5.0); GRAN # 4.68 (1.4-6.5); GRAN % 69.2 % (50.0-68.0); HEMATOCRIT 39.7 % (36.0-48.0); LYMPH # 1.2 (1.2-3.4); LYMPH % 18.3 % (22.0-35.0); MEAN CELL VOLUME 94.1 fL (80.0-105.0); MEAN CORPUSCULAR HEMOGLOBIN 28.9 pg (25.0-35.0); MEAN CORPUSCULAR HGB CONC 30.7 g/dl (31.0-37.0); MEAN PLATELET VOLUME 10.2 fl (7.0-11.0); MONO # 0.7 (0.1-0.6); MONO % 10.8 % (1.0-6.0); PLATELET COUNT 241 10^3/uL (120.0-450.0); RED CELL DISTRIBUTION WIDTH 14.2 % (11.5-14.5); WHITE BLOOD COUNT 6.8 10^3/ul (4.5-11.0)
[2016-11-06] MEDS: Levothyroxine 125 MCG TAB PO SCH (07:55)
--- NOTE | 2016-11-06 07:57 | PN ---
DATE: 11/06/2016 SUBJECTIVE: The patient has no complaints of any chest pain or shortness of breath, no headaches or dizziness. PHYSICAL EXAMINATION: VITAL SIGNS: Temperature is 97.7, pulse is 71, blood pressure is 127/81, respirations 20, O2 saturat ion 99%. GENERAL: The patient comfortable, in no acute distress. HEENT: Anicteric sclerae. Moist mucosa. NECK: No JVD or adenopathy. CARDIAC: S1/S2. No murmurs. No rubs. Regular. RESPIRATORY: Clear to auscultation bilaterally. No wheezes, rales, or rhonchi. Good air entry. ABDOMEN: Bowel sounds are positive, soft, nontender, and nondistended. EXTREMITIES: No edema. Has 1+ pulses. ASSESSMENT: 1. Chest pain, atypical. 2. Osteoarthritis. 3. Bipolar disorder. 4. Paranoid schizophrenia. 5. Hypertension. 6. Dyslipidemia. 7. Hypothyroidism. PLAN: The patient is currently comfortable. She is receiving PPI. Dr. Campbell from GI is followin g the patient. She was seen by Dr. Cobb from cardiology. She is receiving Lipitor for dyslipid emia. She is on Prozac. She is going to continue Synthroid for hypothyroidism. She is on Zestril f or hypertension. She is on a heart healthy diet. Will await further input from GI. The note by the house doctor, Dr. Fine, was also noted. Sj Bolden MD cc: [id number] TT: 11/06/2016 07:56:55 Confirmation # [id number] Dictation # [id number] mn
[2016-11-06] MEDS: Pantoprazole 40 mg EC Tab PO SCH ×2 (09:34→17:25)
--- NOTE | 2016-11-06 12:54 | PN ---
DATE: 11/06/2016 Seen and examined at the bedside earlier today. Still complains of some epigastric discomfort, but no nausea or vomiting. Denies any shortness of breath or chest pain. She was able to tolerate some cereal and eggs, but occasionally can feel it in her epigastric area. No reports of acute overnight events. VITAL SIGNS: Temperature is 97, blood pressure is 102/64, her pulse is 91, respirations 20, 99% nasal cannula. LABORATORIES: WBC is 6.8, H and H is 12.2 and 39.7, platelets is 241. Sodium 138, K 4.4, BUN is 17, creatinine 0.8, mag is 2.2. LFTs are within normal limits. PHYSICAL EXAMINATION: HEENT: Sclera is anicteric. NECK: Supple. CARDIAC: S1, S2. LUNG SOUNDS: With decreased breath sounds, but no rales or wheeze, has good air entry. ABDOMEN: With bowel sounds, soft, nontender on palpation. No rebound or guarding. EXTREMITIES: No edema. ASSESSMENT: Atypical chest pain. The patient did have CT scan reporting esophageal thickening, rule out any esophagitis or ulcers, history of bipolar disorder, schizophrenia, hypertension, dyslipidemia, hypothyroidism. PLAN: Continue the diet as tolerated, chew food well. The patient is on Protonix b.i.d. The patient is on Synthroid and Prozac and Zyprexa. We will speak to the family if they will agree for endoscopy. Seen and discussed with Dr. Campbell. Iliana ROMANO cc: [id number] TT: 11/06/2016 12:53:53 Confirmation # [id number] Dictation # [id number] MTDD
--- NOTE | 2016-11-07 06:22 | PN ---
DATE: 11/06/2016 This patient was seen and evaluated earlier. An addendum to the GI consultation , progress report dictated by Iliana Ames NP. The patient still complains of some epigastric discomfort. She would benefit from endoscopy. She will be scheduled for the procedure. Akash Campbell MD cc: [id number] TT: 11/07/2016 06:21:39 Confirmation # [id number] Dictation # [id number] MTDD
[2016-11-07] MEDS: Levothyroxine 125 MCG TAB PO SCH (08:08)
--- NOTE | 2016-11-07 09:08 | DS ---
This is a 76-year-old female who came into the hospital and she was having atypical chest pain. It w as felt that this is most likely GI in origin. She was initially seen by Dr. Osorio and she was cl eared as a noncardiac cause of her chest pain. The patient was seen by Dr. Campbell and there were p lans to getting an endoscopy if she and her family were agreeable. She denies any headaches or dizzi ness, no nausea. No fevers or chills. No chest pain. PHYSICAL EXAMINATION: VITAL SIGNS: She has a temperature of 98, pulse of 89, blood pressure 140/88, respirations 20, O2 sa turation 96%. GENERAL: The patient comfortable, in no acute distress. HEENT: Anicteric sclerae. Moist mucosa. NECK: No JVD or adenopathy. CARDIAC: S1/S2. No murmurs. No rubs. Regular. RESPIRATORY: Clear to auscultation bilaterally. No wheezes, rales, or rhonchi. Good air entry. ABDOMEN: Bowel sounds are positive, soft, nontender, and nondistended. EXTREMITIES: No edema. Has 1+ pulses. ASSESSMENT: 1. Chest pain, atypical, most likely secondary to gastritis. 2. Osteoarthritis. 3. Bipolar disorder. 4. History of schizophrenia. 5. Hypertension. 6. Dyslipidemia. 7. Hypothyroidism. PLAN: The patient is currently comfortable. She is on her olanzapine for her schizophrenia. She is on lisinopril for her hypertension. She is on Prozac. She is going to continue with Protonix. She is on Lipitor for dyslipidemia. She is n.p.o. past midnight for a possible endoscopy. If her endos copy does not show any significant abnormalities, we will be able to discharge the patient. CONDITION: Stable. ACTIVITIES: Increase as tolerated. Follow up with primary care doctor in 1-2 weeks. Sj Bolden MD cc: [id number] TT: 11/07/2016 09:08:26 jack
[2016-11-07] MEDS: Pantoprazole 40 mg EC Tab PO SCH ×2 (10:36→18:02)
[2016-11-07] MEDS ORDERED: Propofol 10 mg/ml Inj (20 ML) ONE (13:56)
[2016-11-07] MEDS ORDERED: Lactated Ringer's 1,000 ML IV SCH (14:21)
[2016-11-07 15:07] VITALS: O2SAT 100
[2016-11-07 19:41] VITALS: BP 135/66; PULSE 80; RESP 18; TEMP 98.4
== END 2016-11-07 19:43 | DRG 392 ==
LOC: ED 23:26 → ERH 11-04 01:42 → 2RNO 11-04 02:16 → OBSVTOIN 11-07 16:46
PROVIDERS: ADMIT Internal Medicine Nephrology; ATTEND Internal Medicine Nephrology
PROC: 0DB68ZX Excision of Stomach, Via Natural or Artificial Opening Endoscopic, Diagnostic (ICD-10-PCS; principal; 2016-11-07 13:30)
DX: K29.70 Gastritis, unspecified, without bleeding (principal); F20.0 Paranoid schizophrenia; F03.90 Unspecified dementia, unspecified severity, without behavioral disturbance, psychotic disturbance, mood disturbance, and anxiety; K22.10 Ulcer of esophagus without bleeding; K21.0 Gastro-esophageal reflux disease with esophagitis; K44.9 Diaphragmatic hernia without obstruction or gangrene; R07.89 Other chest pain; I10 Essential (primary) hypertension; F31.9 Bipolar disorder, unspecified; E78.5 Hyperlipidemia, unspecified; E03.9 Hypothyroidism, unspecified; M15.9 Polyosteoarthritis, unspecified; Z86.010 Personal history of colon polyps

== ENCOUNTER 2017-07-16 16:25 | Emergency (ER) | payer MEDICARE, BC ==
[2017-07-16 16:25] VITALS: BMI 25.8
--- NOTE | 2017-07-16 17:08 | ED PDOC ---
Arrival/HPI - General Chief Complaint: Psychiatric Evaluation Time Seen by Provider: 07/16/17 16:48 Historian: Patient, Residential (intermediate documentation) - History of Present Illness Narrative History of Present Illness (Text): 07/16/17 17:05 A 77 year old female with psychiatric history, presents to the emergency department from [facility], for increasing paranoia and adjustments in medications as per [facility] documentation. The patient complains of right knee pain. The patient denies fevers, chills, headache, dizziness, chest pain, shortness of breath, dyspnea on exertion, cough, abdominal pain, nausea, vomiting, diarrhea, back pain, neck pain, urinary/bowel changes, or any other complaint. PMD: Dr. Simons Time/Duration: Other (Today) Symptom Onset: Sudden Symptom Course: Unchanged Activities at Onset: Rest, Light Context: Home (Residential) Past Medical History - Provider Review Nursing Documentation Reviewed: Yes - Past History Past History: Non-Contributing - Infectious Disease Hx of Infectious Diseases: None - Tetanus Immunization Tetanus Immunization: Unknown - Reproductive Menopause: Yes - Past Medical History Past Medical History: Unable to Obtain - Cardiac Hx Cardiac Disorders: Yes - Pulmonary Hx Asthma: No Hx Bronchitis: No Hx Chronic Obstructive Pulmonary Disease (COPD): No Hx Emphysema: No Hx Pneumonia: No Hx Sleep Apnea: No - Neurological Hx Alzheimer's Disease: No Hx Dementia: No Hx Migraine: No Hx Parkinson's Disease: No Hx Seizures: No Hx Transient Ischemic Attacks (TIA): No - HEENT Hx HEENT Disorder: No Other/Comment: Wears glasses near/far - Renal Hx Renal Disorder: Yes Hx Kidney Stones: Yes - Endocrine/Metabolic Hx Endocrine Disorders: Yes Hx Hypothyroidism: Yes - Hematological/Oncological Hx Anemia: No Hx Sickle Cell Disease: No - Integumentary Hx Dermatological Disorder: No - Musculoskeletal/Rheumatological Hx Arthritis: No Hx Falls: Yes Hx Fractures: No Hx Osteoporosis: No Hx Rheumatoid Arthritis: No - Gastrointestinal Hx Crohn's Disease: No Hx Diverticulitis: No Hx Esophageal Varices: Yes Hx Gall Bladder Disease: No Hx Pancreatitis: No - Genitourinary/Gynecological Hx Sexually Transmitted Diseases: No - Psychiatric Hx Psychophysiologic Disorder: Yes Hx Bipolar Disorder: Yes Hx Depression: Yes Hx Substance Use: No - Past Surgical History Past Surgical History: Unable to Obtain - Surgical History Hx Appendectomy: Yes Hx Cholecystectomy: Yes Hx Coronary Stent: Yes - Anesthesia Hx Anesthesia: No - Suicidal Assessment Feels Threatened In Home Enviroment: No Family/Social History - Physician Review Nursing Documentation Reviewed: Yes Family/Social History: No Known Family HX Smoking Status: Never Smoked Hx Alcohol Use: No Hx Substance Use: No Hx Substance Use Treatment: No Allergies/Home Meds Allergies/Adverse Reactions: Allergies codeine Allergy (Verified 07/20/15 06:07) RASH Home Medications: Home Meds Medication Instructions Recorded Confirmed Gabapentin [Neurontin] 300 mg PO BID 07/16/17 07/16/17 Levothyroxine [Synthroid] 100 mcg PO ACB 07/16/17 07/16/17 Memantine [Namenda] 10 mg PO BID 07/16/17 07/16/17 Polyethylene Glycol 3350 [Miralax] 17 gm PO PRN PRN 07/16/17 07/16/17 clonazePAM [clonAZEPAM] 0.5 mg PO HS 07/16/17 07/16/17 guaiFENesin/Dextromethorphan 5 ml PO PRN 07/16/17 07/16/17 [Guaifenesin-Dm 10 MG/5 Ml-100 MG/5 Ml 5 Ml] lamoTRIgine [LaMICtal] 100 mg PO BID 07/16/17 07/16/17 Review of Systems - Physician Review All systems were reviewed & negative as marked: Yes - Review of Systems Constitutional: absent: Fevers, Night Sweats Respiratory: absent: SOB, Cough Cardiovascular: absent: Chest Pain, BAUER Gastrointestinal: absent: Abdominal Pain, Diarrhea, Nausea, Vomiting Musculoskeletal: Other (Right knee pain) Neurological: absent: Headache, Dizziness Psychiatric: Other (Paranoia and adjustments in medication.) Physical Exam Vital Signs Reviewed: Yes Vital Signs Temp Pulse Resp BP Pulse Ox 07/16/17 17:11 97.9 F 73 16 141/65 97 Temperature: Afebrile Blood Pressure: Normal Pulse: Regular Respiratory Rate: Normal Appearance: Positive for: Well-Appearing, Non-Toxic, Comfortable Pain Distress: None Mental Status: Positive for: Alert and Oriented X 3 - Systems Exam Skin: Present: Warm, Dry, Normal Color. No: Rashes Psychiatric: Present: Alert, Oriented x 3, Normal Insight, Normal Concentration , Other (Patient demonstrates flight of ideas and embelishes her answers to questions. ) Medical Decision Making ED Course and Treatment: 07/16/17 17:09 Impression: A 77 year old female presents to the emergency department from [facility] for a complaint of increasing paranoia, adjustments in medication, and right knee pain. Plan: -- Reassess and disposition Progress Notes: 07/16/17 18:03 Awake alert stable. Medically clear. Suggest increase Lamictal to 200mg twice daily, and reassess after 1 week. - Lab Interpretations Lab Results: 07/16/17 17:20 07/16/17 17:20 Lab Results 07/16/17 17:20: Sodium 136, Potassium 4.3, Chloride 101, Carbon Dioxide 25, Anion Gap 14, BUN 15, Creatinine 0.7, Est GFR ( Amer) > 60, Est GFR (Non- Af Amer) > 60, Random Glucose 99, Calcium 9.9, Magnesium 2.2, Total Bilirubin 0.3, AST 28, ALT 31, Alkaline Phosphatase 101, Total Protein 6.8, Albumin 4.0, Globulin 2.9, Albumin/Globulin Ratio 1.4 07/16/17 17:20: WBC 7.6, RBC 3.93, Hgb 11.1 L, Hct 35.3 L, MCV 89.8, MCH 28.2, MCHC 31.4, RDW 15.3 H, Plt Count 365, MPV 9.5, Gran % 72.6 H, Lymph % (Auto) 17.0 L, Collier % (Auto) 8.7 H, Eos % (Auto) 1.6, Baso % (Auto) 0.1, Gran # 5.52, Lymph # 1.3, Collier # 0.7 H, Eos # 0.1, Baso # 0.01 - Medication Orders Current Medication Orders: Discontinued Medications Lamotrigine (Lamictal) 200 mg PO STAT STA PRN Reason: Protocol Stop: 07/16/17 17:11 Last Admin: 07/16/17 17:54 Dose: 200 mg - Scribe Statement The provider has reviewed the documentation as recorded by the Timothy Rodriguez Provider Scribe Attestation: All medical record entries made by the Scribe were at my direction and personally dictated by me. I have reviewed the chart and agree that the record accurately reflects my personal performance of the history, physical exam, medical decision making, and the department course for this patient. I have also personally directed, reviewed, and agree with the discharge instructions and disposition. Disposition/Present on Arrival - Present on Arrival Any Indicators Present on Arrival: No History of DVT/PE: No History of Uncontrolled Diabetes: No Urinary Catheter: No History of Decub. Ulcer: No History Surgical Site Infection Following: None - Disposition Have Diagnosis and Disposition been Completed?: Yes Diagnosis: Bipolar 1 disorder, depressed Disposition: HOME/ ROUTINE Disposition Time: 18:10 Patient Plan: Discharge Condition: STABLE Additional Instructions: Medically clear. Suggest increase Lamictal to 200mg twice daily, and reassess after 1 week. Referrals: Matt Simons MD [Primary Care Provider] - Follow up with primary Forms: [employer] (German)
[2017-07-16 17:11] VITALS: TEMP 97.9
[2017-07-16 17:44] LABS: BASO # 0.01 K/mm3 (0.0-2.0); BASO % 0.1 % (0.0-3.0); EOS # 0.1 (0.0-0.7); EOS % 1.6 % (1.5-5.0); GRAN # 5.52 (1.4-6.5); GRAN % 72.6 % (50.0-68.0); HEMOGLOBIN 11.1 g/dL (12.0-16.0); LYMPH # 1.3 (1.2-3.4); MEAN CELL VOLUME 89.8 fl (80.0-105.0); MEAN CORPUSCULAR HEMOGLOBIN 28.2 pg (25.0-35.0); MEAN CORPUSCULAR HGB CONC 31.4 g/dl (31.0-37.0); MEAN PLATELET VOLUME 9.5 fl (7.0-11.0); MONO # 0.7 (0.1-0.6); MONO % 8.7 % (1.0-6.0); RBC 3.93 10^6/uL (3.5-6.1); RED CELL DISTRIBUTION WIDTH 15.3 % (11.5-14.5); WHITE BLOOD COUNT 7.6 10^3/ul (4.5-11.0)
[2017-07-16 17:51] LABS: ALB/GLOB RATIO 1.4 (1.1-1.8); ALT/SGPT 31 U/L (7-56); AST/SGOT 28 U/L (14-36); BLOOD UREA NITROGEN 15 mg/dL (7-21); CALCIUM 9.9 mg/dL (8.4-10.5); GFR AFRICAN-AMERICAN > 60; GFR NON-AFRICAN AMERICAN > 60; MAGNESIUM 2.2 mg/dL (1.7-2.2)
[2017-07-16 20:43] VITALS: BP 138/62; PULSE 78; RESP 18; O2SAT 100
== END 2017-07-16 20:42 | disposition home or self-care (01) ==
LOC: ED 16:25
DX: F32.9 Major depressive disorder, single episode, unspecified (principal)

== ENCOUNTER 2017-07-17 16:15 | Inpatient (IN) | payer MEDICARE, BC ==
[2017-07-17 16:16] VITALS: BMI 25.8
--- NOTE | 2017-07-17 17:51 | ED PDOC ---
Arrival/HPI <Jerardo Spaers - Last Filed: 07/17/17 21:55> <Talon Hurst - Last Filed: 07/18/17 05:57> - General Historian: Patient, EMS - History of Present Illness Context: Home <Akila Antoine - Last Filed: 07/19/17 18:53> - General Chief Complaint: Psychiatric Evaluation Time Seen by Provider: 07/17/17 17:03 - History of Present Illness Narrative History of Present Illness (Text): 07/17/17 17:37 A 77 year old female with psychiatric history, presents to the emergency department from residential ([facility]), for increasing paranoia x 2 days. Patient stated she was not given her morning medication. (Akila Antoine) Past Medical History - Provider Review Nursing Documentation Reviewed: Yes - Past History Past History: Non-Contributing - Infectious Disease Hx of Infectious Diseases: None - Tetanus Immunization Tetanus Immunization: Unknown - Past Medical History Past Medical History: Unable to Obtain - Cardiac Hx Cardiac Disorders: Yes Hx Hypertension: Yes - Pulmonary Hx Respiratory Disorders: No Hx Asthma: No Hx Bronchitis: No Hx Chronic Obstructive Pulmonary Disease (COPD): No Hx Emphysema: No Hx Pneumonia: No Hx Sleep Apnea: No - Neurological Hx Alzheimer's Disease: No Hx Dementia: No Hx Migraine: Yes Hx Parkinson's Disease: No Hx Seizures: No Hx Transient Ischemic Attacks (TIA): No - HEENT Hx HEENT Disorder: No Other/Comment: Wears glasses near/far - Renal Hx Renal Disorder: Yes Hx Kidney Stones: Yes - Endocrine/Metabolic Hx Endocrine Disorders: Yes Hx Hypothyroidism: Yes - Hematological/Oncological Hx Blood Disorders: No Hx Anemia: No Hx Sickle Cell Disease: No - Integumentary Hx Dermatological Disorder: No - Musculoskeletal/Rheumatological Hx Arthritis: No Hx Falls: Yes Hx Fractures: No Hx Osteoporosis: No Hx Rheumatoid Arthritis: No - Gastrointestinal Hx Crohn's Disease: No Hx Diverticulitis: Yes Hx Esophageal Varices: Yes Hx Gall Bladder Disease: No Hx Pancreatitis: No - Genitourinary/Gynecological Hx Sexually Transmitted Diseases: No - Psychiatric Hx Psychophysiologic Disorder: Yes Hx Bipolar Disorder: Yes Hx Depression: Yes Hx Substance Use: No - Past Surgical History Past Surgical History: Unable to Obtain - Surgical History Hx Appendectomy: Yes Hx Cholecystectomy: Yes Hx Coronary Stent: Yes - Anesthesia Hx Anesthesia: No - Suicidal Assessment Feels Threatened In Home Enviroment: No <Akila Antoine P - Last Filed: 07/19/17 18:53> Family/Social History - Physician Review Nursing Documentation Reviewed: Yes Family/Social History: Other (noncontributory) Smoking Status: Never Smoked Hx Alcohol Use: No Hx Substance Use: No Hx Substance Use Treatment: No <Akila Antoine P - Last Filed: 07/19/17 18:53> Allergies/Home Meds <ToryJerardo - Last Filed: 07/17/17 21:55> <Talon Hurst - Last Filed: 07/18/17 05:57> <Akila Antoine P - Last Filed: 07/19/17 18:53> Allergies/Adverse Reactions: Allergies codeine Allergy (Verified 07/17/17 16:50) RASH Home Medications: Home Meds Medication Instructions Recorded Confirmed Acetaminophen [Tylenol 325mg tab] 2 tab PO Q4 PRN 07/18/17 07/18/17 Dextromethorphan HBr [Robitussin 15 mg PO Q6 PRN 07/18/17 07/18/17 Lingering Cold Long-Acting Coughge] Gabapentin [Neurontin] 300 mg PO BID 07/18/17 07/18/17 Levothyroxine Sodium [Levoxyl] 100 mcg PO DAILY 07/18/17 07/18/17 Lisinopril [Zestril] 20 mg PO DAILY 07/18/17 07/18/17 Memantine HCl 10 mg PO BID 07/18/17 07/18/17 Polyethylene Glycol 3350 [Miralax] 17 gm PO BID 07/18/17 07/18/17 clonazePAM [clonAZEPAM] 0.5 mg PO HS 07/18/17 07/18/17 lamoTRIgine [LaMICtal] 100 mg PO BID 07/18/17 07/18/17 Review of Systems - Review of Systems Constitutional: Normal. absent: Fatigue, Weight Change, Fevers, Night Sweats Eyes: Normal ENT: Normal Respiratory: Normal Cardiovascular: Normal Gastrointestinal: Normal Genitourinary Female: Normal Musculoskeletal: Normal Skin: Normal Neurological: Normal Endocrine: Normal Hemo/Lymphatic: Normal Psychiatric: Other (paranoia) <Akila Antoine - Last Filed: 07/19/17 18:53> Physical Exam Temperature: Afebrile Blood Pressure: Normal Pulse: Regular Respiratory Rate: Normal Appearance: Positive for: Well-Appearing, Non-Toxic, Comfortable Pain Distress: None Mental Status: Positive for: Alert and Oriented X 3 - Systems Exam Head: Present: Atraumatic, Normocephalic Pupils: Present: PERRL Extroacular Muscles: Present: EOMI Conjunctiva: Present: Normal Mouth: Present: Moist Mucous Membranes Neck: Present: Normal Range of Motion Respiratory/Chest: Present: Clear to Auscultation, Good Air Exchange. No: Respiratory Distress, Accessory Muscle Use Cardiovascular: Present: Regular Rate and Rhythm, Normal S1, S2. No: Murmurs Abdomen: Present: Normal Bowel Sounds. No: Tenderness, Distention, Peritoneal Signs Back: Present: Normal Inspection Upper Extremity: Present: Normal Inspection. No: Cyanosis, Edema Lower Extremity: Present: Normal Inspection. No: Edema Neurological: Present: GCS=15, CN II-XII Intact, Speech Normal Skin: Present: Warm, Dry, Normal Color. No: Rashes Psychiatric: Present: Alert, Oriented x 3 <Akila Antoine P - Last Filed: 07/19/17 18:53> Vital Signs Temp Pulse Resp BP Pulse Ox 07/18/17 11:54 98.0 F 61 18 116/71 99 07/18/17 10:14 98.8 F 63 18 119/73 99 07/18/17 08:06 98.2 F 67 18 143/67 98 07/18/17 05:30 59 L 18 119/65 95 07/18/17 04:05 63 19 112/65 92 L 07/18/17 03:00 66 16 141/80 94 L 07/17/17 21:10 70 15 127/74 95 07/17/17 19:10 67 19 133/79 98 07/17/17 17:11 97.9 F 71 18 149/90 99 Medical Decision Making <Jerardo Spears - Last Filed: 07/17/17 21:55> <Talon Hurst - Last Filed: 07/18/17 05:57> <Akila Antoine P - Last Filed: 07/19/17 18:53> ED Course and Treatment: 07/17/17 21:56 Discussed case with PES. Patient is resting comfortably. No respiratory distress. Patient evaluated by PES, states waiting approval for disposition plan from power of copying machine repairer. Patient to be observed in Emergency department until power of copying machine repairer able to sign for disposition. (Jerardo Spears) - Lab Interpretations Lab Results: 07/17/17 18:00 07/17/17 18:00 Lab Results 07/18/17 06:30: Urine Opiates Screen Negative, Urine Methadone Screen Negative, Ur Barbiturates Screen Negative, Ur Phencyclidine Scrn Negative, Ur Amphetamines Screen Negative, U Benzodiazepines Scrn Negative, U Oth Cocaine Metabols Negative, U Cannabinoids Screen Negative 07/17/17 19:19: Urine Color Yellow, Urine Appearance Clear, Urine pH 7.0, Ur Specific [place] 1.015, Urine Protein Negative, Urine Glucose (UA) Negative, Urine Ketones Negative, Urine Blood Negative, Urine Nitrate Negative, Urine Bilirubin Negative, Urine Urobilinogen 0.2, Ur Leukocyte Esterase Negative 07/17/17 18:00: Alcohol, Quantitative < 10 07/17/17 18:00: Salicylates < 1 L, Acetaminophen < 10.0 L 07/17/17 18:00: Sodium 134, Potassium 4.1, Chloride 100, Carbon Dioxide 26, Anion Gap 13, BUN 15, Creatinine 0.7, Est GFR ( Amer) > 60, Est GFR (Non- Af Amer) > 60, Random Glucose 94, Calcium 9.9, Total Bilirubin 0.3, AST 26, ALT 29, Alkaline Phosphatase 96, Total Protein 6.8, Albumin 4.0, Globulin 2.8, Albumin/Globulin Ratio 1.4 07/17/17 18:00: WBC 7.3, RBC 3.86, Hgb 10.8 L, Hct 34.8 L, MCV 90.2, MCH 28.0, MCHC 31.0, RDW 15.4 H, Plt Count 345, MPV 9.3, Gran % 66.7, Lymph % (Auto) 23.9 , [place] % (Auto) 7.7 H, Eos % (Auto) 1.6, Baso % (Auto) 0.1, Gran # 4.85, Lymph # 1.7, Dewitt # 0.6, Eos # 0.1, Baso # 0.01 - RAD Interpretation Radiology Orders: 07/17/17 17:36 CHEST PORTABLE [RAD] Stat - Medication Orders Current Medication Orders: Acetaminophen (Tylenol 325mg Tab) 650 mg PO Q6H PRN PRN Reason: pain/fever Clonazepam (Klonopin) 0.5 mg PO HS GAVIN PRN Reason: Protocol Last Admin: 07/18/17 22:04 Dose: 0.5 mg Behavioural Document 07/18/17 22:04 DC (Rec: 07/18/17 22:05 DC [id number]) Maintenance Maintenance Dose Yes Re-Assess: Reassess Psych Meds Document 07/18/17 23:04 DC (Rec: 07/19/17 09:23 DC [id number]) Reassess Psych Med Effective Gabapentin (Neurontin) 100 mg PO TID GAVIN PRN Reason: Protocol Last Admin: 07/19/17 17:24 Dose: 100 mg Behavioural Document 07/19/17 17:24 ABO (Rec: 07/19/17 17:24 ABO [id number]) Maintenance Maintenance Dose Yes Guaifenesin (Robitussin) 100 mg PO Q4H PRN PRN Reason: Cough Lamotrigine (Lamictal) 100 mg PO BID GAVIN PRN Reason: Protocol Last Admin: 07/19/17 17:24 Dose: 100 mg Behavioural Document 07/19/17 17:24 ABO (Rec: 07/19/17 17:24 ABO [id number]) Maintenance Maintenance Dose Yes Levothyroxine Sodium (Synthroid) 100 mcg PO 0600 [facility] Last Admin: 07/19/17 10:37 Dose: 100 mcg Lisinopril (Zestril) 20 mg PO DAILY [facility] Last Admin: 07/19/17 10:37 Dose: 20 mg MAR Pulse and Blood Pressure Document 07/19/17 10:37 ABO (Rec: 07/19/17 10:38 ABO [id number]) Pulse Pulse Rate (60-90) 72 Blood Pressure Blood Pressure (100/60-150/90) 128/82 Memantine (Namenda) 10 mg PO BID [facility] Last Admin: 07/19/17 17:24 Dose: 10 mg Polyethylene Glycol (Miralax) 17 gm PO BID [facility] Last Admin: 07/19/17 17:17 Dose: Not Given Non-Admin Reason: Patient Refused Quetiapine Fumarate (Seroquel) 12.5 mg PO HS GAVIN PRN Reason: Protocol Last Admin: 01/17/18 22:05 Dose: 12.5 mg Behavioural Document 07/18/17 22:05 DC (Rec: 07/18/17 22:05 DC [id number]) Maintenance Maintenance Dose Yes Re-Assess: Reassess Psych Meds Document 07/18/17 23:05 DC (Rec: 07/19/17 09:24 DC [id number]) Reassess Psych Med Effective - PA / [employer] TECHNICIAN / Resident Statement MD/DO has reviewed & agrees with the documentation as recorded. <Talon Hurst - Last Filed: 07/18/17 05:57> Disposition/Present on Arrival <Jerardo Spears - Last Filed: 07/17/17 21:55> - Present on Arrival Any Indicators Present on Arrival: No - Disposition Have Diagnosis and Disposition been Completed?: Yes Disposition Time: 07:00 <Talon Hurst - Last Filed: 07/18/17 05:57> - Present on Arrival Any Indicators Present on Arrival: No History of DVT/PE: No History of Uncontrolled Diabetes: No Urinary Catheter: No History of Decub. Ulcer: No History Surgical Site Infection Following: None - Disposition Have Diagnosis and Disposition been Completed?: Yes <Akila Antoine - Last Filed: 07/19/17 18:53> - Disposition Diagnosis: Bipolar 1 disorder, depressed Disposition: HOSPITALIZED Patient Problems: Current Active Problems Problem Status Onset Bipolar 1 disorder, depressed Acute Condition: FAIR
[2017-07-17 18:33] LABS: BASO # 0.01 K/mm3 (0.0-2.0); BASO % 0.1 % (0.0-3.0); EOS # 0.1 (0.0-0.7); EOS % 1.6 % (1.5-5.0); GRAN # 4.85 (1.4-6.5); GRAN % 66.7 % (50.0-68.0); HEMOGLOBIN 10.8 g/dL (12.0-16.0); LYMPH # 1.7 (1.2-3.4); LYMPH % 23.9 % (22.0-35.0); MEAN CELL VOLUME 90.2 fl (80.0-105.0); MEAN PLATELET VOLUME 9.3 fl (7.0-11.0); MONO # 0.6 (0.1-0.6); MONO % 7.7 % (1.0-6.0); RBC 3.86 10^6/uL (3.5-6.1); RED CELL DISTRIBUTION WIDTH 15.4 % (11.5-14.5); WHITE BLOOD COUNT 7.3 10^3/ul (4.5-11.0)
--- NOTE | 2017-07-17 18:39 | RAD ---
HISTORY: PES aaliyah COMPARISON: 11/04/2016 FINDINGS: LUNGS: No active pulmonary disease. PLEURA: No significant pleural effusion identified, no pneumothorax apparent. CARDIOVASCULAR: No radiographic findings to suggest acute or significant cardiovascular disease. OSSEOUS STRUCTURES: No significant abnormalities. VISUALIZED UPPER ABDOMEN: Normal. OTHER FINDINGS: None. IMPRESSION: No active disease. No significant interval change compared to the prior examination(s).
[2017-07-17 18:44] LABS: ALB/GLOB RATIO 1.4 (1.1-1.8); ALT/SGPT 29 U/L (7-56); AST/SGOT 26 U/L (14-36); BLOOD UREA NITROGEN 15 mg/dL (7-21); CALCIUM 9.9 mg/dL (8.4-10.5); GFR AFRICAN-AMERICAN > 60; GFR NON-AFRICAN AMERICAN > 60
[2017-07-17 18:45] LABS: ACETAMINOPHEN < 10.0 ug/ml (10.0-20.0); SALICYLATE < 1 mg/dL (2.0-20.0)
[2017-07-17 19:36] LABS: URINE BILIRUBIN NEGATIVE (NEGATIVE); URINE BLOOD NEGATIVE (NEGATIVE); URINE GLUCOSE (UA) NEGATIVE (NEGATIVE); URINE LEUKOCYTE ESTERASE NEGATIVE Leu/uL (NEGATIVE); URINE NITRATE NEGATIVE (NEGATIVE); URINE PROTEIN NEGATIVE mg/dL (<30 mg/dL); URINE UROBILINOGEN 0.2 E.U./dL (<1 E.U./dL)
[2017-07-17 19:37] LABS: URINE APPEARANCE CLEAR (CLEAR); URINE COLOR YELLOW (YELLOW)
--- NOTE | 2017-07-18 07:19 | ED PDOC ---
Physical Exam Vital Signs Reviewed: Yes Vital Signs Temp Pulse Resp BP Pulse Ox 07/18/17 08:06 98.2 F 67 18 143/67 98 07/18/17 05:30 59 L 18 119/65 95 07/18/17 04:05 63 19 112/65 92 L 07/18/17 03:00 66 16 141/80 94 L 07/17/17 21:10 70 15 127/74 95 07/17/17 19:10 67 19 133/79 98 07/17/17 17:11 97.9 F 71 18 149/90 99 Temperature: Afebrile Blood Pressure: Normal Pulse: Regular Respiratory Rate: Normal Appearance: Positive for: Well-Appearing Pain Distress: None Mental Status: Positive for: Alert and Oriented X 3 Medical Decision Making ED Course and Treatment: 07/18/17 07:15 Patient signed out to me by Dr. Hurst. Currently awaiting follow-up with psychiatry. 07/18/17 10:06 Case discussed with Keke HESTER who states patient's POA signed paperwork and patient will be admitted to Dr. Gris Pineda. Patient comfortable with no new complaints. - Lab Interpretations Lab Results: 07/17/17 18:00 07/17/17 18:00 Lab Results 07/18/17 06:30: Urine Opiates Screen Negative, Urine Methadone Screen Negative, Ur Barbiturates Screen Negative, Ur Phencyclidine Scrn Negative, Ur Amphetamines Screen Negative, U Benzodiazepines Scrn Negative, U Oth Cocaine Metabols Negative, U Cannabinoids Screen Negative 07/17/17 19:19: Urine Color Yellow, Urine Appearance Clear, Urine pH 7.0, Ur Specific [place] 1.015, Urine Protein Negative, Urine Glucose (UA) Negative, Urine Ketones Negative, Urine Blood Negative, Urine Nitrate Negative, Urine Bilirubin Negative, Urine Urobilinogen 0.2, Ur Leukocyte Esterase Negative 07/17/17 18:00: Alcohol, Quantitative < 10 07/17/17 18:00: Salicylates < 1 L, Acetaminophen < 10.0 L 07/17/17 18:00: Sodium 134, Potassium 4.1, Chloride 100, Carbon Dioxide 26, Anion Gap 13, BUN 15, Creatinine 0.7, Est GFR ( Amer) > 60, Est GFR (Non- Af Amer) > 60, Random Glucose 94, Calcium 9.9, Total Bilirubin 0.3, AST 26, ALT 29, Alkaline Phosphatase 96, Total Protein 6.8, Albumin 4.0, Globulin 2.8, Albumin/Globulin Ratio 1.4 07/17/17 18:00: WBC 7.3, RBC 3.86, Hgb 10.8 L, Hct 34.8 L, MCV 90.2, MCH 28.0, MCHC 31.0, RDW 15.4 H, Plt Count 345, MPV 9.3, Gran % 66.7, Lymph % (Auto) 23.9 , [place] % (Auto) 7.7 H, Eos % (Auto) 1.6, Baso % (Auto) 0.1, Gran # 4.85, Lymph # 1.7, [place] # 0.6, Eos # 0.1, Baso # 0.01 - RAD Interpretation Radiology Orders: 07/17/17 17:36 CHEST PORTABLE [RAD] Stat - Scribe Statement The provider has reviewed the documentation as recorded by the Timothy Morris Provider Scribe Attestation: All medical record entries made by the Scribe were at my direction and personally dictated by me. I have reviewed the chart and agree that the record accurately reflects my personal performance of the history, physical exam, medical decision making, and the department course for this patient. I have also personally directed, reviewed, and agree with the discharge instructions and disposition. Disposition/Present on Arrival - Present on Arrival Any Indicators Present on Arrival: No History of DVT/PE: No History of Uncontrolled Diabetes: No Urinary Catheter: No History of Decub. Ulcer: No History Surgical Site Infection Following: None - Disposition Have Diagnosis and Disposition been Completed?: Yes Diagnosis: Bipolar 1 disorder, depressed Disposition: HOSPITALIZED Disposition Time: 10:07 Patient Plan: Admission Patient Problems: Current Active Problems Problem Status Onset Bipolar 1 disorder, depressed Acute Condition: FAIR Referrals: Matt Simons MD [Primary Care Provider] - Follow up with primary Forms: [facility] [employer] ([place])
[2017-07-18 08:08] LABS: OPIATES, UR NEGATIVE (NEGATIVE); PHENCYCLIDINE, UR NEGATIVE (NEGATIVE)
[2017-07-18 08:28] LABS: BARBITURATES, UR NEGATIVE (NEGATIVE); BENZODIAZEPINES, UR NEGATIVE (NEGATIVE)
--- NOTE | 2017-07-18 08:30 | CARD ---
APPROVED REPORT EKG Measurement Heart [id number] <Conclusion> Normal sinus rhythm Normal ECG
--- NOTE | 2017-07-18 14:18 | PCM.BM ---
<Sujit Nixon - Last Filed: 07/18/17 14:14> Treatment Plan Problems - Problems identified on initial assessmt ALTERED THOUGHT PROCESS Date Initiated: 07/18/17 Time Initiated: 14:15 Assessment reference: JACK FALCON MEDS NONADHERENCE Date Initiated: 07/18/17 Time Initiated: 14:15 Assessment reference: HP, NA INEFFECTIVE IMPULSE CONTROL Date Initiated: 07/18/17 Time Initiated: 14:16 Assessment reference: JACK FALCON Treatment assets and liabiliti Patient Assests: adapts well, cooperative, resourceful, negotiates basic needs, other Patient Liabilities: live alone, medical problems - Milieu Protocol Maintain good personal hygiene: daily Encourage regular showers, daily Remind patient to perform daily oral care, daily Assist patient to perform ADL's Maintain personal safety: daily Educate patient to report safety concerns to staff, daily Monitor environment for contraband/sharps Medication safety: Monitor for expected outcome, potential side effects: daily, Assess barriers to learning: daily, Assess readiness for medication education: daily Discharge/Continuing Care - Education Needs Education Needs: Patient Medication, Patient Diagnosis/Disease Process, Patient Coping Skills, Patient Anger Management skills, Patient Placement options, Patient Community resources, Patient Uses of Medical Equipment, Patient Health Practices/Safety, Patient Personal Hygiene/Grooming, Patient Aftercare Safety Plan - Discharge Discharge Criteria: Free of Suicidal thoughts, Free of paranoid thoughts, No longer exhibiting s/s of withdrawal <Gris Pineda - Last Filed: 07/18/17 15:06> - Diagnosis (1) Bipolar 1 disorder, depressed Status: Acute Interventions: 07/18/17 15:08 Psychoeducation Psychopharmacology/adjustment of medications as needed/ monitoring possible side effects Monitor blood level of mood stabilizers Evaluate pt on daily basis Compliance with medications and follow up appointments Suicide and homicide risk assessment and prevention, coping strategies, safety plan Relapse prevention Reduction of symptoms Improve functional status Family involvement As outpatient: cognitive behavioral therapy (2) Delirium due to another medical condition Status: Acute Interventions: 07/18/17 15:08 Pt will be seen by medical team as needed Medications will be confirmed and resumed Additional consultation by specialists as needed Lab work as needed (CBC, CMP, TSH, free T4, UA, Urine test for females as needed) CXR as needed EKG Physical therapy evaluation as needed <Donnell,Luz Marina Y - Last Filed: 07/20/17 16:16> Family Contact - Outside Agency [facility] involvment: Information-sharing Agency contact name: [facility]
[2017-07-18] MEDS ORDERED: guaiFENesin 100 mg/5 ml Syrup UD PO PRN (15:31)
--- NOTE | 2017-07-18 15:52 | PCM.PSYCH ---
Initial Psychiatric Evaluation - Initial Psychiatric Evaluation Type of Admission: Voluntary Legal Status: DPOA (pt's POA signed consent for treatment) Chief Complaint (in patient's own words): "I am the thierry one..." Patient's Reaction to Hospitalization: pt was referred by her [facility] for evaluation of disorganized and psychotic behavior , paranoid ideation about meds, pt was not taking meds. History of Present Illness and Precipitating Events: Shortly pt is 77yo female with long h/o bipolar disorder, h/o been admitted to psychiatric inpatient unit at [facility] [place], most recent was three years ago, pt currently lives at [facility], [facility], paranoid behavior, agitation, pt was refuing to take medications, was throwing herself on the floor, was argumentative, pt needs further evaluation and stabilization, meds adjustment. Pt presented with good personal hygiene, good ADLs, pt was seen and examined, discussed with staff, [facility], discussed with , [facility]. based on the report from , pt was having TD symptoms on antipsychotic medications that is why seroquel was d/c. on observation pt has some lip smacking, moving her tongue in and out, smiling and grimacing, chewing movements, AIMS 10, AIMS scale was filed in the chart. Pt was seen at the TV area with student, pt presented to be manic, was talking nonstop, was telling how she likes Ehsan, said that she is the thierry one to be admitted to this unit, was extremely friendly/no boundaries, most of pt's statements were not making much sense. pt said that she has h/o headaches and she was taking neurontin, asked about . last admission at [facility] [place] pt was bizarre and psychotic, had visual hallucinations, was delusional that she had an . PT denied smoking "I don't smoke and I don't use drugs. [facility]: Klonopin 0.5mg hs foranxiety Lamictal 100mg po bid for bipolar Levothyroxine 100mcg Memantine 10mg po daily for dementia Miralax 17gm twice a day Robitussing 5ml q6h prn Tylenol 650 mg po q4h prn for pain will resume meds Medical h/o: HTN, hpothyroidism, UTI, h/o delirium, h/o deverticulosis of intestine, part unspecified, without perforation or abscess. Family h/o: denied suicidal attempts, denied h/o mental illness. pt denied h/o suicidal attempts, but pt has h/o bipolar disorder. 07/17/17 18:00 07/17/17 18:00 Lab Results 07/18/17 06:30: Urine Opiates Screen Negative, Urine Methadone Screen Negative, Ur Barbiturates Screen Negative, Ur Phencyclidine Scrn Negative, Ur Amphetamines Screen Negative, U Benzodiazepines Scrn Negative, U Oth Cocaine Metabols Negative, U Cannabinoids Screen Negative 07/17/17 19:19: Urine Color Yellow, Urine Appearance Clear, Urine pH 7.0, Ur Specific [place] 1.015, Urine Protein Negative, Urine Glucose (UA) Negative, Urine Ketones Negative, Urine Blood Negative, Urine Nitrate Negative, Urine Bilirubin Negative, Urine Urobilinogen 0.2, Ur Leukocyte Esterase Negative 07/17/17 18:00: Alcohol, Quantitative < 10 07/17/17 18:00: Salicylates < 1 L, Acetaminophen < 10.0 L 07/17/17 18:00: Sodium 134, Potassium 4.1, Chloride 100, Carbon Dioxide 26, Anion Gap 13, BUN 15, Creatinine 0.7, Est GFR ( Amer) > 60, Est GFR (Non- Af Amer) > 60, Random Glucose 94, Calcium 9.9, Total Bilirubin 0.3, AST 26, ALT 29, Alkaline Phosphatase 96, Total Protein 6.8, Albumin 4.0, Globulin 2.8, Albumin/Globulin Ratio 1.4 07/17/17 18:00: WBC 7.3, RBC 3.86, Hgb 10.8 L, Hct 34.8 L, MCV 90.2, MCH 28.0, MCHC 31.0, RDW 15.4 H, Plt Count 345, MPV 9.3, Gran % 66.7, Lymph % (Auto) 23.9 , [place] % (Auto) 7.7 H, Eos % (Auto) 1.6, Baso % (Auto) 0.1, Gran # 4.85, Lymph # 1.7, [place] # 0.6, Eos # 0.1, Baso # 0.01 Vital Signs Temp Pulse Resp BP Pulse Ox 07/18/17 11:54 98.0 F 61 18 116/71 99 07/18/17 10:14 98.8 F 63 18 119/73 99 07/18/17 08:06 98.2 F 67 18 143/67 98 07/18/17 05:30 59 L 18 119/65 95 07/18/17 04:05 63 19 112/65 92 L 07/18/17 03:00 66 16 141/80 94 L 07/17/17 21:10 70 15 127/74 95 07/17/17 19:10 67 19 133/79 98 07/17/17 17:11 97.9 F 71 18 149/90 99 Current Medications: see above Past Psychiatric History - Past Psychiatric History Previous Treatment History: Inpatient Prior Professional Help: see HPI Prior Psychiatric Treatment: see HPI At what hospital: see HPI Duration: see HPI Nature of Treatment: see HPI Explanation of prior treatment: see HPI History of Abuse: pt denied History of ETOH/Drug Use: denied History of Family Illness: see HPI Pertinent Medical Hx (Current Medical&Sleep Prob, Allergies): Allergies Allergy/AdvReac Type Severity Reaction Status Date / Time codeine Allergy RASH Verified 07/17/17 16:50 Acetaminophen [Tylenol 325mg tab] 2 tab PO Q4 PRN 07/18/17 Dextromethorphan HBr [Robitussin Lingering Cold Long-Acting Coughge] 15 mg PO Q6 PRN 07/18/17 Gabapentin [Neurontin] 300 mg PO BID 07/18/17 Levothyroxine Sodium [Levoxyl] 100 mcg PO DAILY 07/18/17 Lisinopril [Zestril] 20 mg PO DAILY 07/18/17 Memantine HCl 10 mg PO BID 07/18/17 Polyethylene Glycol 3350 [Miralax] 17 gm PO BID 07/18/17 clonazePAM [clonAZEPAM] 0.5 mg PO HS 07/18/17 lamoTRIgine [LaMICtal] 100 mg PO BID 07/18/17 Review of Systems - Review of Systems Systems not reviewed;Unavailable: Acuity of Condition - EENT Eyes: As Per HPI Ears: As Per HPI Nose/Mouth/Throat: As Per HPI - Breasts Breasts: As Per HPI - Cardiovascular Cardiovascular: As Per HPI - Respiratory Respiratory: As Per HPI - Gastrointestinal Gastrointestinal: As Per HPI - Genitourinary Genitourinary: As Per HPI - Reproductive: Female Reproductive:Female: As Per HPI - Menstruation Menstruation: As Per HPI - Musculoskeletal Musculoskeletal: As Par HPI - Integumentary Integumentary: As Per HPI - Neurological Neurological: As Per HPI - Psychiatric Psychiatric: As Per HPI - Endocrine Endocrine: As Per HPI - Hematologic/Lymphatic Hematologic: As Per HPI Mental Status Examination - Personal Presentation Personal Presentation: Looks stated age - Affect Affect: Broad (, expanded) - Motor Activity Motor Activity: Calm - Reliability in Providing Information Reliability in Providing Information: Poor, due to alteration in thoughts, Poor , due to altered mood, Poor, due to cognitve impairment - Speech Speech: Disorganized, Tangential - Mood Mood: Euphoric - Formal Thought Process Formal Thought Process: Delusions, Paranoia, Loosening of associations - Hallucinations/Delusions Delusions: Persecution - Obsessions/Compulsions Obsessions: None Compulsions: None - Cognitive Functions Orientation: Person, Place Sensorium: Alert Attention/Concentration: Easily distracted Abstract Thinking: [place]z Estimate of Intelligence: Below average - Risk Risk: Self-mutilation, Diminished functioning - Strength & Assets Inventory Strength & Assets Inventory: Cooperative - Limitations Limitations: Other (pt has long h/o mental illess, prone to have psychosis) DSM 5 DX - DSM 5 DSM 5 Diagnosis: h/o bipolar disorder dementia r/o delirium - Recommended/Plan of Treatment Treatment Recommendations and Plan of Treatment: Milieu/structure/supportive therapy Acetaminophen PRN Dextromethorphan HBr [Robitussin Lingering Cold Long-Acting Coughge] 15 mg PO Q6 PRN Gabapentin [Neurontin] will be given 100mg po tid for neuropathy, anxiety Levothyroxine Sodium [Levoxyl] 100 mcg PO DAILY Lisinopril [Zestril] 20 mg PO DAILY Memantine HCl 10 mg PO BID Polyethylene Glycol 3350 [Miralax] 17 gm PO BID clonazePAM [clonAZEPAM] 0.5 mg PO HS lamoTRIgine [LaMICtal] 100 mg PO BID will add seroquel 12.5mg hs for psychosis will call medical team for consult consider neurology consult pt's POA will be involved Follow up on labs Will monitor closely Pt was educated about risk/benefits and alternatives of medications, coping strategies (safety plan, suicide prevention) Projected ELOS: 7days Prognosis: guarded Discharge Plan and Discharge Criteria: Pt will be not depressed or manic, will be more hopeful, will be not psychotic or anxious, will be not having thoughts of harming self or others, will be tolerating medications well, will not have major side effects, will be able to function, will not pose threat to self or others. - Smoking Cessation Smoking Cessation Initiated: No Reason for not providing: pt denied smoking
[2017-07-18] MEDS: POLYETHYLENE GLYCOL 3350 17 GM/Dose PACKET PO SCH (17:47)
[2017-07-19] MEDS: POLYETHYLENE GLYCOL 3350 17 GM/Dose PACKET PO SCH ×2 (10:37→17:17)
[2017-07-19] MEDS: Levothyroxine 100 MCG TAB PO SCH (10:37)
--- NOTE | 2017-07-19 12:43 | CON ---
DATE: 07/19/2017 REFERRING PHYSICIAN: Gris Pineda MD REASON FOR EVALUATION: Medical management of hypertension and hypothyroidism. CHIEF COMPLAINT AND HISTORY OF PRESENT ILLNESS: This is a 77-year-old female who is coming into the hospital because of paranoia for the past few days. The patient states she is comfortable. She has no complaints of any chest pain. No shortness of breath. No nausea. No vomiting. No fever. No headaches. No chills. She has no abdominal pain. No dysuria. She is able to ambulate. She is a resident at [facility]. REVIEW OF SYSTEMS: All other review of symptoms are within daniel limits except as mentioned. ALLERGIES: CODEINE. HOME MEDICATIONS: Tylenol, Robitussin, Neurontin, Levoxyl, Zestril, MiraLax, clonazepam, and Lamictal. PAST MEDICAL HISTORY: 1. Bipolar disorder. 2. Depression. 3. Hypertension. 4. Dyslipidemia. 5. Hypothyroidism. 6. Kidney stones. SOCIAL HISTORY: She does not drink or smoke. FAMILY HISTORY: Noncontributory. PHYSICAL EXAMINATION: VITAL SIGNS: Temperature is 97.2, pulse is 72, blood pressure is 122/82, and respirations are 20. Height is 5 feet 2 inches, weight is 159 pounds, and BMI is 29.1. GENERAL: The patient lying in bed, uncomfortable, and in no acute distress. HEENT: Atraumatic and normocephalic. Anicteric sclerae. Moist mucosa. [place] conjunctivae. No oral lesions. NECK: No JVD, anterior and posterior adenopathy, thyromegaly, or bruits. CARDIOVASCULAR: S1 and S2 regular. No murmur, rubs, or gallop. LUNGS: Clear to auscultation bilaterally. No wheezes, rales, or rhonchi. ABDOMEN: Bowel sounds are positive. Soft, nontender and nondistended. No hepatosplenomegaly. No rebound and no guarding EXTREMITIES: No cyanosis, clubbing, or edema. NEUROLOGIC: No facial asymmetry. Tongue is midline. No uvula deviation. Power is 5/5 upper extremity and lower extremity. Sensation intact in upper extremity and lower extremity. PSYCHIATRIC: She is awake, alert and oriented x3. No anxiety or depression. She has normal affect. GENITOURINARY: No CVA tenderness. VASCULAR: 2+ pulses in the carotid pulses and pedal pulses. SKIN: No erythema or nodules SPINE: Shows normal curvature. LABORATORY DATA: White count of 7.3 and hemoglobin of 10.8. The patient's creatinine is 0.7. Urine shows blood is negative, nitrites are negative. Toxicology shows negative, acetaminophen is negative, alcohol is negative, urine tox is negative. EKG shows sinus rhythm with heart rate of 70, QTc is 419. Chest x-ray done shows no infiltrates. ASSESSMENT: 1. Bipolar disorder. 2. Hypertension. 3. Hypothyroidism. 4. Nephrolithiasis. PLAN: The patient is currently comfortable. The patient is on lisinopril for her hypertension, her blood pressure controlled. She is on Synthroid for her hypothyroidism, this will be continued. She is on Neurontin for neuropathy. She is receiving MiraLax for constipation. She is on a heart-healthy diet. Her labs are acceptable. She is walking and ambulating. She has no pain. She is comfortable. No further medical issues. Thank you for allowing me to participate in the care of your patient. I will sign off, please re-consult if required. Sj Bolden MD
--- NOTE | 2017-07-19 16:26 | PCM.PYCHPN ---
Psychiatric Progress Note - Psychiatric Progress Note Patient seen today, length of contact: 30min Patient Chief Complaint: "isn't it nice to have you as my psychiatrist?" Problems Identified/Issues Discussed: Suicide/ homicide prevention, past psychiatric h/o, current psychiatric symptoms , medical problems, risk/benefits and alternatives of medications, medications compliance, coping strategies, substance abuse h/o, relapse prevention, importance of follow up with psychiatrist and therapist, discharge plan. Medical Problems: TD migraines dyslipidemia kidneys stones hypothyroidism Diagnostic Results: 07/17/17 18:00 07/17/17 18:00 Lab Results 07/18/17 06:30: Urine Opiates Screen Negative, Urine Methadone Screen Negative, Ur Barbiturates Screen Negative, Ur Phencyclidine Scrn Negative, Ur Amphetamines Screen Negative, U Benzodiazepines Scrn Negative, U Oth Cocaine Metabols Negative, U Cannabinoids Screen Negative 07/17/17 19:19: Urine Color Yellow, Urine Appearance Clear, Urine pH 7.0, Ur Specific [place] 1.015, Urine Protein Negative, Urine Glucose (UA) Negative, Urine Ketones Negative, Urine Blood Negative, Urine Nitrate Negative, Urine Bilirubin Negative, Urine Urobilinogen 0.2, Ur Leukocyte Esterase Negative 07/17/17 18:00: Alcohol, Quantitative < 10 07/17/17 18:00: Salicylates < 1 L, Acetaminophen < 10.0 L 07/17/17 18:00: Sodium 134, Potassium 4.1, Chloride 100, Carbon Dioxide 26, Anion Gap 13, BUN 15, Creatinine 0.7, Est GFR ( Amer) > 60, Est GFR (Non- Af Amer) > 60, Random Glucose 94, Calcium 9.9, Total Bilirubin 0.3, AST 26, ALT 29, Alkaline Phosphatase 96, Total Protein 6.8, Albumin 4.0, Globulin 2.8, Albumin/Globulin Ratio 1.4 07/17/17 18:00: WBC 7.3, RBC 3.86, Hgb 10.8 L, Hct 34.8 L, MCV 90.2, MCH 28.0, MCHC 31.0, RDW 15.4 H, Plt Count 345, MPV 9.3, Gran % 66.7, Lymph % (Auto) 23.9 , [place] % (Auto) 7.7 H, Eos % (Auto) 1.6, Baso % (Auto) 0.1, Gran # 4.85, Lymph # 1.7, [place] # 0.6, Eos # 0.1, Baso # 0.01 Vital Signs Temp Pulse Resp BP Pulse Ox 07/19/17 10:37 72 128/82 07/19/17 07:34 97.2 F L 72 20 128/82 07/18/17 15:00 98.5 F 72 20 166/64 H 07/18/17 11:54 98.0 F 61 18 116/71 99 07/18/17 10:14 98.8 F 63 18 119/73 99 07/18/17 08:06 98.2 F 67 18 143/67 98 07/18/17 05:30 59 L 18 119/65 95 07/18/17 04:05 63 19 112/65 92 L 07/18/17 03:00 66 16 141/80 94 L 07/17/17 21:10 70 15 127/74 95 07/17/17 19:10 67 19 133/79 98 07/17/17 17:11 97.9 F 71 18 149/90 99 DSM 5 Symptoms Update: Shortly pt is 77yo female with long h/o bipolar disorder, h/o been [place] [facility] [place] most recent was three years ago, pt currently lives at [facility], was referred by [place] for evaluation of disorganized, paranoid behavior, agitation, pt was refuing to take medications, was throwing herself on the floor, was argumentative, pt needs further evaluation and stabilization, meds adjustment. Pt presented with good personal hygiene, good ADLs. AIMS 07/19/17 is 4, overall severity of abnormal movements overall was 1. AIMS 07/18/17 is some lip smacking, moving her tongue in and out, smiling and grimacing, chewing movements, AIMS 10, AIMS overall severity of abnormal movements overall was 2 scale was filed in the chart. pt was seen at her room, seems to be in good spirit, less emotionally labile, mild paranoia towards meds, but pt was compliant with offered medications. pt was educated about seroquel and clozaril. as per staff pt is calm, no behavioral outbursts. pt's AIMS improving, pt was not aware of her symptoms, seems to be surprised, pt said "do I have some lip smacking?, I should look like nuts.." Impression: schizoaffective bipolar type r/o bipolar with psychosis dementia Medication Change: Yes (seroquel resumed) Medical Record Reviewed: Yes Consults ordered or reviewed: Medical consult appreciated Mental Status Examination - Cognitive Function Orientation: Person, Place Memory: Impaired Attention: Poor Concentration: Poor Association: WNL Fund of Knowledge: WNL - Mood Mood: Euphoric - Affect Affect: Broad (, expanded) - Formal Thought Process Formal Thought Process: Delusions, Paranoia, Loosening of associations - Suicidal Ideation Suicidal Ideation: No - Homicidal Ideation Homicidal Ideation: No Goal/Treatment Plan - Goal/Treatment Plan Need for Continued Stay: Remain at risks for inpatient hospitalization, Severe depression anxiety, Discharge may exacerbated symptoms, Severe functional impairment Progress Toward Problem(s) and Goals/Treatment Plan: Milieu/structure/supportive therapy Acetaminophen PRN Dextromethorphan HBr [Robitussin Lingering Cold Long-Acting Coughge] 15 mg PO Q6 PRN Gabapentin [Neurontin] will be given 100mg po tid for neuropathy, anxiety Levothyroxine Sodium [Levoxyl] 100 mcg PO DAILY Lisinopril [Zestril] 20 mg PO DAILY Memantine HCl 10 mg PO BID Polyethylene Glycol 3350 [Miralax] 17 gm PO BID clonazePAM [clonAZEPAM] 0.5 mg PO HS lamoTRIgine [LaMICtal] 100 mg PO BID will add seroquel 12.5mg hs for psychosis will call medical team for consult consider neurology consult pt's POA will be involved Follow up on labs Will monitor closely Pt was educated about risk/benefits and alternatives of medications, coping strategies (safety plan, suicide prevention) Estimated Date of D/C: 07/24/17 (will monitor closely) - Smoking Cessation Smoking Cessation Initiated: No
[2017-07-20] MEDS: Levothyroxine 100 MCG TAB PO SCH (05:35)
[2017-07-20] MEDS: POLYETHYLENE GLYCOL 3350 17 GM/Dose PACKET PO SCH ×2 (09:29→17:29)
--- NOTE | 2017-07-20 14:44 | PCM.PYCHPN ---
Psychiatric Progress Note - Psychiatric Progress Note Patient seen today, length of contact: 30min Patient Chief Complaint: "that therapist is GREAT..." Problems Identified/Issues Discussed: Suicide/ homicide prevention, past psychiatric h/o, current psychiatric symptoms , medical problems, risk/benefits and alternatives of medications, medications compliance, coping strategies, substance abuse h/o, relapse prevention, importance of follow up with psychiatrist and therapist, discharge plan. Medical Problems: TD migraines dyslipidemia kidneys stones hypothyroidism Diagnostic Results: 07/17/17 18:00 07/17/17 18:00 Lab Results 07/18/17 06:30: Urine Opiates Screen Negative, Urine Methadone Screen Negative, Ur Barbiturates Screen Negative, Ur Phencyclidine Scrn Negative, Ur Amphetamines Screen Negative, U Benzodiazepines Scrn Negative, U Oth Cocaine Metabols Negative, U Cannabinoids Screen Negative 07/17/17 19:19: Urine Color Yellow, Urine Appearance Clear, Urine pH 7.0, Ur Specific [place] 1.015, Urine Protein Negative, Urine Glucose (UA) Negative, Urine Ketones Negative, Urine Blood Negative, Urine Nitrate Negative, Urine Bilirubin Negative, Urine Urobilinogen 0.2, Ur Leukocyte Esterase Negative 07/17/17 18:00: Alcohol, Quantitative < 10 07/17/17 18:00: Salicylates < 1 L, Acetaminophen < 10.0 L 07/17/17 18:00: Sodium 134, Potassium 4.1, Chloride 100, Carbon Dioxide 26, Anion Gap 13, BUN 15, Creatinine 0.7, Est GFR ( Amer) > 60, Est GFR (Non- Af Amer) > 60, Random Glucose 94, Calcium 9.9, Total Bilirubin 0.3, AST 26, ALT 29, Alkaline Phosphatase 96, Total Protein 6.8, Albumin 4.0, Globulin 2.8, Albumin/Globulin Ratio 1.4 07/17/17 18:00: WBC 7.3, RBC 3.86, Hgb 10.8 L, Hct 34.8 L, MCV 90.2, MCH 28.0, MCHC 31.0, RDW 15.4 H, Plt Count 345, MPV 9.3, Gran % 66.7, Lymph % (Auto) 23.9 , [place] % (Auto) 7.7 H, Eos % (Auto) 1.6, Baso % (Auto) 0.1, Gran # 4.85, Lymph # 1.7, [place] # 0.6, Eos # 0.1, Baso # 0.01 Vital Signs Temp Pulse Resp BP Pulse Ox 07/19/17 10:37 72 128/82 07/19/17 07:34 97.2 F L 72 20 128/82 07/18/17 15:00 98.5 F 72 20 166/64 H 07/18/17 11:54 98.0 F 61 18 116/71 99 07/18/17 10:14 98.8 F 63 18 119/73 99 07/18/17 08:06 98.2 F 67 18 143/67 98 07/18/17 05:30 59 L 18 119/65 95 07/18/17 04:05 63 19 112/65 92 L 07/18/17 03:00 66 16 141/80 94 L 07/17/17 21:10 70 15 127/74 95 07/17/17 19:10 67 19 133/79 98 07/17/17 17:11 97.9 F 71 18 149/90 99 DSM 5 Symptoms Update: Shortly pt is 77yo female with long h/o bipolar disorder, h/o been admitted to psychiatric inpatient unit [place] [facility] [place], most recent was three years ago, pt currently lives at [facility], was referred by [place] for evaluation of disorganized, paranoid behavior, agitation, pt was refuing to take medications, was throwing herself on the floor, was argumentative, pt needs further evaluation and stabilization, meds adjustment. Pt presented with good personal hygiene, good ADLs. pt still in her manic stage, overidealizing SW,said "Oh My Lord, she is the best , she is very intelligent, I want to have that group forever", pt said "I had a headache, but after that group BOOM!!! headache is gone", pt is emotionally labile, still manic, psychotic. Seroquel was increased to 25mg hs. POA was called today, left a message, awaiting for the call back. AIMS 07/19/17 is 4, overall severity of abnormal movements overall was 1. AIMS 07/18/17 is some lip smacking, moving her tongue in and out, smiling and grimacing, chewing movements, AIMS 10, AIMS overall severity of abnormal movements overall was 2 AMIS scale was filed in the chart. pt's abnormal moving improving, pt was not aware of her symptoms, seems to be surprised, pt said "do I have some lip smacking?, I should look like nuts.." as per staff pt is calm, no behavioral outbursts. Impression: schizoaffective bipolar type r/o bipolar with psychosis dementia Medication Change: Yes (seroquel resumed) Medical Record Reviewed: Yes Mental Status Examination - Cognitive Function Orientation: Person, Place Memory: Impaired Attention: Poor Concentration: Poor Association: WNL Fund of Knowledge: WNL - Mood Mood: Euphoric - Affect Affect: Broad (, expanded) - Speech Speech: Appropriate (overproductive) - Formal Thought Process Formal Thought Process: Delusions, Loosening of associations, Circumstantial - Suicidal Ideation Suicidal Ideation: No - Homicidal Ideation Homicidal Ideation: No Goal/Treatment Plan - Goal/Treatment Plan Need for Continued Stay: Remain at risks for inpatient hospitalization, Severe depression anxiety, Discharge may exacerbated symptoms, Severe functional impairment Progress Toward Problem(s) and Goals/Treatment Plan: Milieu/structure/supportive therapy Acetaminophen PRN Dextromethorphan HBr [Robitussin Lingering Cold Long-Acting Coughge] 15 mg PO Q6 PRN Gabapentin [Neurontin] will be given 100mg po tid for neuropathy, anxiety Levothyroxine Sodium [Levoxyl] 100 mcg PO DAILY Lisinopril [Zestril] 20 mg PO DAILY Memantine HCl 10 mg PO BID Polyethylene Glycol 3350 [Miralax] 17 gm PO BID clonazePAM [clonAZEPAM] 0.5 mg PO HS lamoTRIgine [LaMICtal] 100 mg PO BID will add seroquel 25mg hs for psychosis will call medical team for consult consider neurology consult pt's POA was called, left a message Follow up on labs Will monitor closely Pt was educated about risk/benefits and alternatives of medications, coping strategies (safety plan, suicide prevention) Estimated Date of D/C: 07/24/17 (will monitor closely)
[2017-07-20] MEDS: Lubricant Eye Drops UD OU SCH ×2 (17:29→21:25)
[2017-07-21] MEDS: Levothyroxine 100 MCG TAB PO SCH (07:06)
[2017-07-21] MEDS: POLYETHYLENE GLYCOL 3350 17 GM/Dose PACKET PO SCH ×2 (08:35→15:49)
[2017-07-21] MEDS: Lubricant Eye Drops UD OU SCH ×3 (08:43→22:28)
--- NOTE | 2017-07-21 08:56 | PCM.PYCHPN ---
Psychiatric Progress Note - Psychiatric Progress Note Patient seen today, length of contact: 25 min Patient Chief Complaint: "fine" Problems Identified/Issues Discussed: I reviewed assessment and recent notes. Patient was interviewed at bedside. She is groomed and superficially cooperative. Generally pleasant and denies any concerns except for the timing of her medications.Thought process is tangential. Denies any depression, hopelessness, SI or hallucinations. . Staff notes indicate that patient has been labile, disorganized and argumentative, generally about her medications. Patient informs me that AM dose of neurontin and thyroid medication is given at 8 am and that PM dose of neurontin makes her dizzy. Diagnostic Results: schizoaffective bipolar type r/o bipolar with psychosis dementia Medication Change: Yes (d/c PM neurontin) Medical Record Reviewed: Yes Mental Status Examination - Cognitive Function Orientation: Person, Place Memory: Impaired Attention: Poor Concentration: Poor Association: WNL Fund of Knowledge: WNL - Mood Mood: Euphoric - Affect Affect: Broad (, expanded) - Speech Speech: Appropriate (overproductive) - Formal Thought Process Formal Thought Process: Delusions, Loosening of associations, Circumstantial - Suicidal Ideation Suicidal Ideation: No - Homicidal Ideation Homicidal Ideation: No Goal/Treatment Plan - Goal/Treatment Plan Need for Continued Stay: Remain at risks for inpatient hospitalization, Severe depression anxiety, Discharge may exacerbated symptoms, Severe functional impairment Progress Toward Problem(s) and Goals/Treatment Plan: * c/w current tx and plan * D/C PM neurontin as patient complains of dizziness with this dose * No new weekend labs thus far * Vitals reviewed and noted below: Selected Entries 07/19/17 07/19/17 07/19/17 07:34 10:37 16:00 Temperature 97.2 F L Pulse Rate 72 72 78 Respiratory 20 Rate Blood Pressure 128/82 128/82 144/69 Estimated Date of D/C: 07/24/17 (will monitor closely)
[2017-07-22] MEDS: Levothyroxine 100 MCG TAB PO SCH (08:24)
--- NOTE | 2017-07-22 08:47 | PCM.PYCHPN ---
Psychiatric Progress Note - Psychiatric Progress Note Patient seen today, length of contact: 25 min Patient Chief Complaint: "fine" Problems Identified/Issues Discussed: I reviewed recent notes and patent was interviewed at bedside. She is groomed and superficially cooperative. Generally pleasant and denies any concerns except for the dosing of neurontin at night. Indicates she usually takes a higher dose but doesn't know the dose. Thought process is tangential and repetitive. Patient is oddly related and loses her train of thought. Denies any depression, hopelessness, SI or hallucinations. Staff notes indicate that patient has been labile, disorganized and argumentative with staff about her medications. Has been socializing with patients and attending groups. Diagnostic Results: schizoaffective bipolar type r/o bipolar with psychosis dementia Medication Change: Yes (increased HS neurontin) Medical Record Reviewed: Yes Mental Status Examination - Cognitive Function Orientation: Person, Place Memory: Impaired Attention: Poor Concentration: Poor Association: WNL Fund of Knowledge: WNL - Mood Mood: Euphoric - Affect Affect: Broad (, expanded) - Speech Speech: Appropriate (overproductive) - Formal Thought Process Formal Thought Process: Delusions, Loosening of associations, Circumstantial - Suicidal Ideation Suicidal Ideation: No - Homicidal Ideation Homicidal Ideation: No Goal/Treatment Plan - Goal/Treatment Plan Need for Continued Stay: Remain at risks for inpatient hospitalization, Severe depression anxiety, Discharge may exacerbated symptoms, Severe functional impairment Progress Toward Problem(s) and Goals/Treatment Plan: * c/w current tx and plan * D/C PM neurontin and increased HS neurontin to 200 mg HS * No new weekend labs thus far * Vitals reviewed and noted below: 07/21/17 07/21/17 07/21/17 07:13 08:36 15:00 Temperature 97.7 F Pulse Rate 69 69 55 L Respiratory 20 Rate Blood Pressure 107/60 167/60 H 122/50 L Estimated Date of D/C: 07/24/17 (will monitor closely)
[2017-07-22] MEDS: Lubricant Eye Drops UD OU SCH ×3 (08:55→21:41)
[2017-07-22] MEDS: POLYETHYLENE GLYCOL 3350 17 GM/Dose PACKET PO SCH ×2 (08:55→17:17)
[2017-07-23 06:58] VITALS: O2SAT 96
[2017-07-23] MEDS: Levothyroxine 100 MCG TAB PO SCH (07:34)
[2017-07-23] MEDS: Lubricant Eye Drops UD OU SCH ×3 (07:34→22:52)
[2017-07-23] MEDS: POLYETHYLENE GLYCOL 3350 17 GM/Dose PACKET PO SCH ×2 (08:45→18:41)
[2017-07-23] MEDS ORDERED: Alum-Mag Hydrox-Simethicone Susp (30 mL) PO PRN (09:41)
--- NOTE | 2017-07-23 14:09 | CT ---
PROCEDURE: CT HEAD WITHOUT CONTRAST. HISTORY: headaches COMPARISON: 12/01/2013 TECHNIQUE: Axial computed tomography images were obtained through the head/brain without intravenous contrast. Radiation dose: Total exam DLP = 746 mGy-cm. This CT exam was performed using one or more of the following dose reduction techniques: Automated exposure control, adjustment of the mA and/or kV according to patient size, and/or use of iterative reconstruction technique. FINDINGS: HEMORRHAGE: No intracranial hemorrhage. BRAIN: No mass effect or edema. There is moderate atrophy VENTRICLES: Unremarkable. No hydrocephalus. CALVARIUM: Unremarkable. PARANASAL SINUSES: Unremarkable as visualized. No significant inflammatory changes. MASTOID AIR CELLS: Unremarkable as visualized. No inflammatory changes. OTHER FINDINGS: None. IMPRESSION: No acute findings
--- NOTE | 2017-07-23 16:06 | PCM.PYCHPN ---
Psychiatric Progress Note - Psychiatric Progress Note Patient seen today, length of contact: 30min Patient Chief Complaint: "all of the nurses are B..CHES" Problems Identified/Issues Discussed: Suicide/ homicide prevention, past psychiatric h/o, current psychiatric symptoms , medical problems, risk/benefits and alternatives of medications, medications compliance, coping strategies, substance abuse h/o, relapse prevention, importance of follow up with psychiatrist and therapist, discharge plan. Medical Problems: TD migraines dyslipidemia kidneys stones hypothyroidism Diagnostic Results: 07/17/17 18:00 07/17/17 18:00 Lab Results 07/18/17 06:30: Urine Opiates Screen Negative, Urine Methadone Screen Negative, Ur Barbiturates Screen Negative, Ur Phencyclidine Scrn Negative, Ur Amphetamines Screen Negative, U Benzodiazepines Scrn Negative, U Oth Cocaine Metabols Negative, U Cannabinoids Screen Negative 07/17/17 19:19: Urine Color Yellow, Urine Appearance Clear, Urine pH 7.0, Ur Specific [place] 1.015, Urine Protein Negative, Urine Glucose (UA) Negative, Urine Ketones Negative, Urine Blood Negative, Urine Nitrate Negative, Urine Bilirubin Negative, Urine Urobilinogen 0.2, Ur Leukocyte Esterase Negative 07/17/17 18:00: Alcohol, Quantitative < 10 07/17/17 18:00: Salicylates < 1 L, Acetaminophen < 10.0 L 07/17/17 18:00: Sodium 134, Potassium 4.1, Chloride 100, Carbon Dioxide 26, Anion Gap 13, BUN 15, Creatinine 0.7, Est GFR ( Amer) > 60, Est GFR (Non- Af Amer) > 60, Random Glucose 94, Calcium 9.9, Total Bilirubin 0.3, AST 26, ALT 29, Alkaline Phosphatase 96, Total Protein 6.8, Albumin 4.0, Globulin 2.8, Albumin/Globulin Ratio 1.4 07/17/17 18:00: WBC 7.3, RBC 3.86, Hgb 10.8 L, Hct 34.8 L, MCV 90.2, MCH 28.0, MCHC 31.0, RDW 15.4 H, Plt Count 345, MPV 9.3, Gran % 66.7, Lymph % (Auto) 23.9 , [place] % (Auto) 7.7 H, Eos % (Auto) 1.6, Baso % (Auto) 0.1, Gran # 4.85, Lymph # 1.7, [place] # 0.6, Eos # 0.1, Baso # 0.01 Vital Signs Temp Pulse Resp BP Pulse Ox 07/19/17 10:37 72 128/82 07/19/17 07:34 97.2 F L 72 20 128/82 07/18/17 15:00 98.5 F 72 20 166/64 H 07/18/17 11:54 98.0 F 61 18 116/71 99 07/18/17 10:14 98.8 F 63 18 119/73 99 07/18/17 08:06 98.2 F 67 18 143/67 98 07/18/17 05:30 59 L 18 119/65 95 07/18/17 04:05 63 19 112/65 92 L 07/18/17 03:00 66 16 141/80 94 L 07/17/17 21:10 70 15 127/74 95 07/17/17 19:10 67 19 133/79 98 07/17/17 17:11 97.9 F 71 18 149/90 99 DSM 5 Symptoms Update: Shortly pt is 77yo female with long h/o bipolar disorder, h/o been admitted to psychiatric inpatient unit at [facility] [place], most recent was three years ago, pt currently lives at [facility], was referred by [place] for evaluation of disorganized, paranoid behavior, agitation, pt was refuing to take medications, was throwing herself on the floor, was argumentative, pt needs further evaluation and stabilization, meds adjustment. Pt presented with good personal hygiene, good ADLs. as per RN report pt was refusing medications saying that it is different color and it has to be the yellow, today pt was seen in her room, pt presented to be irritable, said that RNs are "b...shes, offering me wrong medications, how dare they are...", pt switched to her pleasant mood was giving this contract technical writer multiple complements, saying that this contract technical writer "the best doctor I ever met", pt is unpredictable. addendum to my previous note 07/20/17, Pt's POA called this contract technical writer back, this contract technical writer discussed tx plan, risk/benefits and alternatives of meds discussed, pt' s POA was appreciative. pt's POA called this contract technical writer over the weekend, asked to call him back, this contract technical writer called 07/23/17, left a message, awaiting for the call back. pt c/o migraine headaches, Neurology team was called, saw pt today, CT of the head done 07/23/17, WNL. AIMS 07/23/17 no worsening of the symptoms, severity of abnormal movements overall was1. AIMS 07/19/17 is 4, overall severity of abnormal movements overall was 1. AIMS 07/18/17 is some lip smacking, moving her tongue in and out, smiling and grimacing, chewing movements, AIMS 10, AIMS overall severity of abnormal movements overall was 2 AMIS scale was filed in the chart. as per staff pt is calm, no behavioral outbursts. Impression: schizoaffective bipolar type r/o bipolar with psychosis dementia Medication Change: Yes (seroquel increased) Medical Record Reviewed: Yes Consults ordered or reviewed: Medical consult appreciated Mental Status Examination - Cognitive Function Orientation: Person, Place Memory: Impaired Attention: Poor Concentration: Poor Association: WNL Fund of Knowledge: WNL - Mood Mood: Euphoric - Affect Affect: Broad (, expanded) - Speech Speech: Appropriate (overproductive) - Formal Thought Process Formal Thought Process: Delusions, Paranoia ("they are giving me wrong medications..."), Loosening of associations, Circumstantial - Suicidal Ideation Suicidal Ideation: No - Homicidal Ideation Homicidal Ideation: No Goal/Treatment Plan - Goal/Treatment Plan Need for Continued Stay: Remain at risks for inpatient hospitalization, Severe depression anxiety, Discharge may exacerbated symptoms, Severe functional impairment Progress Toward Problem(s) and Goals/Treatment Plan: Milieu/structure/supportive therapy Acetaminophen PRN Dextromethorphan HBr [Robitussin Lingering Cold Long-Acting Coughge] 15 mg PO Q6 PRN Gabapentin [Neurontin] will be given 100mg po tid for neuropathy, anxiety Levothyroxine Sodium [Levoxyl] 100 mcg PO DAILY Lisinopril [Zestril] 20 mg PO DAILY Memantine HCl 10 mg PO BID Polyethylene Glycol 3350 [Miralax] 17 gm PO BID clonazePAM [clonAZEPAM] 0.5 mg PO HS lamoTRIgine [LaMICtal] 100 mg PO BID will add seroquel 50mg hs for psychosis will call medical team for consult consider neurology consult pt's POA was called, discussed the plan 07/20/17, today called again 07/23/17, awaiting for the call back Follow up on labs Will monitor closely Pt was educated about risk/benefits and alternatives of medications, coping strategies (safety plan, suicide prevention) Estimated Date of D/C: 07/27/17 (will monitor closely)
--- NOTE | 2017-07-23 17:14 | CP.PCM.CON ---
<FranciscoFina - Last Filed: 07/23/17 17:10> History of Present Illness - History of Present Illness History of Present Illness: PGY-[address] Gutierrez Consult: Headache Ms Kimberly Worley, 77F, with Hx migraine, CAD s/p PCI and stents, HTN, HLD, depression, bipolar disorder, and hypothyroidism, admitted to psych for paranoia. Pt woke up with a headache today, sharp, 10/10, constant. Pt endorsed that she used to take her medicines early. However, she took her meds at 10: 30am this morning, and her headache was worsened due to the medicine timing. Pt took sumatriptan for headache this AM. Pt states that she still has 5/10 headache now Ros - denies vision changes, aura. (+) photophobia denies fever, chills, numbness, tingling, n/v, chest pain, sob, dysuria PMH CAD s/p PCI and coronary stent Hypertension, dyslipidemia, Hypothyroidism Hx kidney stone Migraine depression,bipolar disorder Hx falls Hs diverticulitis, esophageal varices PSH - Appendectomy, Cholecyectomy, coronary stent FH - N/A SH - denied smoke or drink. Resident at [facility]. Ambulate with walker All - Codeine - rash Med - reviewed Review of Systems - Review of Systems All systems: reviewed and no additional remarkable complaints except Review of Systems: HPI Past Patient History - Infectious Disease Hx of Infectious Diseases: None - Tetanus Immunizations Tetanus Immunization: Unknown - Past Medical History & Family History Past Medical History?: Yes - Past Social History Smoking Status: Never Smoked - CARDIAC Hx Cardiac Disorders: Yes Hx Hypertension: Yes - PULMONARY Hx Respiratory Disorders: No Hx Asthma: No Hx Bronchitis: No Hx Chronic Obstructive Pulmonary Disease (COPD): No Hx Emphysema: No Hx Pneumonia: No Hx Sleep Apnea: No - NEUROLOGICAL Hx Alzheimer's Disease: No Hx Dementia: No Hx Migraine: Yes Hx Parkinson's Disease: No Hx Seizures: No Hx Transient Ischemic Attacks (TIA): No - HEENT Hx HEENT Problems: No Other/Comment: Wears glasses near/far - RENAL Hx Chronic Kidney Disease: Yes Hx Kidney Stones: Yes - ENDOCRINE/METABOLIC Hx Endocrine Disorders: Yes Hx Hypothyroidism: Yes - HEMATOLOGICAL/ONCOLOGICAL Hx Blood Disorders: No Hx Anemia: No Hx Sickle Cell Disease: No - INTEGUMENTARY Hx Dermatological Problems: No - MUSCULOSKELETAL/RHEUMATOLOGICAL Hx Arthritis: No Hx Falls: Yes Hx Fractures: No Hx Osteoporosis: No Hx Rheumatoid Arthritis: No - GASTROINTESTINAL Hx Crohn's Disease: No Hx Diverticulitis: Yes Hx Esophageal Varices: Yes Hx Gall Bladder Disease: No Hx Pancreatitis: No - GENITOURINARY/GYNECOLOGICAL Hx Sexually Transmitted Disorders: No - PSYCHIATRIC Hx Psychophysiologic Disorder: Yes Hx Bipolar Disorder: Yes Hx Depression: Yes Hx Substance Use: No - SURGICAL HISTORY Hx Appendectomy: Yes Hx Cholecystectomy: Yes Hx Coronary Stent: Yes - ANESTHESIA Hx Anesthesia: No Meds Allergies/Adverse Reactions: Allergies Allergy/AdvReac Type Severity Reaction Status Date / Time codeine Allergy RASH Verified 07/17/17 16:50 - Medications Medications: Current Medications Acetaminophen (Tylenol 325mg Tab) 650 mg PO Q6H PRN PRN Reason: pain/fever Last Admin: 07/22/17 02:41 Dose: 650 mg Acetaminophen/Butalbital/Caffeine (Fioricet) 1 tab PO Q4H PRN PRN Reason: Migraine headache Al Hydrox/Mg Hydrox/Simethicone (Maalox Plus 30 Ml) 30 ml PO DAILY PRN PRN Reason: Upset Stomach Artificial Tears (Refresh Opth Soln) 0.3 ml OU BID GAVIN Last Admin: 07/23/17 07:34 Dose: 0.3 ml Artificial Tears (Refresh Opth Soln) 0.3 ml OU HS GAVIN Last Admin: 07/22/17 21:41 Dose: 0.3 ml Clonazepam (Klonopin) 0.5 mg PO HS [facility]IN PRN Reason: Protocol Last Admin: 07/22/17 21:55 Dose: Not Given Gabapentin (Neurontin) 100 mg PO QAM [facility] PRN Reason: Protocol Last Admin: 07/23/17 10:00 Dose: 100 mg Gabapentin (Neurontin) 200 mg PO HS [facility] PRN Reason: Protocol Last Admin: 07/22/17 21:41 Dose: 200 mg Guaifenesin (Robitussin) 100 mg PO Q4H PRN PRN Reason: Cough Lamotrigine (Lamictal) 100 mg PO BID [facility] PRN Reason: Protocol Last Admin: 07/23/17 07:33 Dose: 100 mg Levothyroxine Sodium (Synthroid) 100 mcg PO 0800 GAVIN Last Admin: 07/23/17 07:34 Dose: 100 mcg Lisinopril (Zestril) 20 mg PO DAILY [facility] Last Admin: 07/23/17 07:33 Dose: 20 mg Memantine (Namenda) 10 mg PO BID [facility] Last Admin: 07/23/17 07:33 Dose: 10 mg Polyethylene Glycol (Miralax) 17 gm PO BID [facility] Last Admin: 07/23/17 08:45 Dose: Not Given Quetiapine Fumarate (Seroquel) 50 mg PO [facility] PRN Reason: Protocol Physical Exam - Constitutional Appears: No Acute Distress - Head Exam Head Exam: ATRAUMATIC, NORMAL INSPECTION, NORMOCEPHALIC - Eye Exam Eye Exam: EOMI, Normal appearance, PERRL. absent: Scleral icterus Pupil Exam: NORMAL ACCOMODATION - ENT Exam ENT Exam: Mucous Membranes Moist - Neck Exam Additional comments: supple - Respiratory Exam Respiratory Exam: Clear to Auscultation Bilateral, NORMAL BREATHING PATTERN. absent: Rales, Rhonchi, Wheezes - Cardiovascular Exam Cardiovascular Exam: REGULAR RHYTHM, +S1, +S2 - GI/Abdominal Exam GI & Abdominal Exam: Normal Bowel Sounds, Soft. absent: Tenderness - Extremities Exam Extremities exam: Positive for: pedal edema (slight). Negative for: calf tenderness Additional comments: bruise L knee - Neurological Exam Neurological exam: Alert, CN II-XII Intact, Oriented x3 Additional comments: AAOx3 speech - fluent Recall - 3/3 Motor - 5/5 sensory - grossly intact [id number] coordination - intact - Psychiatric Exam Psychiatric exam: Anxious, Normal Affect - Skin Skin Exam: Dry, Warm Results - Vital Signs Recent Vital Signs: Last Vital Signs Temp 98.2 F 07/23/17 06:56 Pulse 75 07/23/17 06:56 Resp 18 07/23/17 06:56 BP 110/73 07/23/17 06:56 Pulse Ox 96 07/23/17 06:56 - Labs Result Diagrams: 07/17/17 18:00 07/17/17 18:00 Assessment & Plan - Assessment and Plan (Free Text) Plan: Ms Kimberly Worley, 77F, with Hx migraine, CAD s/p PCI and stents, HTN, HLD, depression, bipolar disorder, and hypothyroidism, admitted to psych for paranoia. Pt woke up with a headache today, sharp, 10/10, constant. Pt endorsed that she used to take her medicines early. However, she took her meds at 10: 30am this morning, and her headache was worsened due to the medicine timing. Pt took sumatriptan for headache this AM. Pt states that she still has 5/10 headache now. Acute Migraine Onset - CT head negative for acute disease - Avoid triptan - Fioricet q4h PRN for acute migraine - COntinue current dose of gabapentin 100 mg AM, 200mg HS. - follow up with Dr Hatch outpatient. Hx fall - recommend physical therapy s/r/d/w Dr. Gutierrez <Dev Gutierrez - Last Filed: 07/24/17 10:02> Meds - Medications Medications: Current Medications Acetaminophen (Tylenol 325mg Tab) 650 mg PO Q6H PRN PRN Reason: pain/fever Last Admin: 07/22/17 02:41 Dose: 650 mg Acetaminophen/Butalbital/Caffeine (Fioricet) 1 tab PO Q4H PRN PRN Reason: Migraine headache Last Admin: 07/23/17 22:35 Dose: 1 tab Al Hydrox/Mg Hydrox/Simethicone (Maalox Plus 30 Ml) 30 ml PO DAILY PRN PRN Reason: Upset Stomach Artificial Tears (Refresh Opth Soln) 0.3 ml OU BID GAVIN Last Admin: 07/23/17 16:30 Dose: 0.3 ml Artificial Tears (Refresh Opth Soln) 0.3 ml OU HS GAVIN Last Admin: 07/23/17 22:52 Dose: Not Given Clonazepam (Klonopin) 0.5 mg PO HS [facility]IN PRN Reason: Protocol Last Admin: 07/23/17 22:52 Dose: Not Given Gabapentin (Neurontin) 100 mg PO QAM [facility] PRN Reason: Protocol Last Admin: 07/23/17 10:00 Dose: 100 mg Gabapentin (Neurontin) 200 mg PO HS [facility] PRN Reason: Protocol Last Admin: 07/23/17 22:52 Dose: Not Given Guaifenesin (Robitussin) 100 mg PO Q4H PRN PRN Reason: Cough Lamotrigine (Lamictal) 100 mg PO BID [facility] PRN Reason: Protocol Last Admin: 07/23/17 16:30 Dose: 100 mg Levothyroxine Sodium (Synthroid) 100 mcg PO 0800 GAVIN Last Admin: 07/23/17 07:34 Dose: 100 mcg Lisinopril (Zestril) 20 mg PO DAILY [facility] Last Admin: 07/23/17 07:33 Dose: 20 mg Memantine (Namenda) 10 mg PO BID [facility] Last Admin: 07/23/17 16:30 Dose: 10 mg Polyethylene Glycol (Miralax) 17 gm PO BID [facility] Last Admin: 07/23/17 18:41 Dose: Not Given Quetiapine Fumarate (Seroquel) 50 mg PO HS [facility] PRN Reason: Protocol Last Admin: 07/23/17 22:52 Dose: Not Given Results - Vital Signs Recent Vital Signs: Last Vital Signs Temp 97.9 F 07/24/17 07:19 Pulse 71 07/24/17 07:19 Resp 20 07/24/17 07:19 BP 104/60 07/24/17 07:19 Pulse Ox 96 07/23/17 06:56 - Labs Result Diagrams: 07/23/17 22:49 07/23/17 22:49 Labs: Laboratory Results - last 24 hr 07/23/17 07/23/17 07/23/17 22:04 22:49 22:49 WBC 8.0 RBC 4.37 Hgb 12.4 Hct 39.6 MCV 90.6 MCH 28.4 MCHC 31.3 RDW 15.5 H Plt Count 364 MPV 9.6 Gran % 58.2 Lymph % (Auto) 31.2 [place] % (Auto) 9.0 H Eos % (Auto) 1.4 L Baso % (Auto) 0.2 Gran # 4.68 Lymph # 2.5 [place] # 0.7 H Eos # 0.1 Baso # 0.02 Sodium 138 Potassium 4.1 Chloride 104 Carbon Dioxide 21 Anion Gap 16 BUN 23 H Creatinine 1.1 Est GFR ( Amer) 58 Est GFR (Non-Af Amer) 48 POC Glucose (mg/dL) 106 Random Glucose 127 H Calcium 10.3 Total Bilirubin 0.4 AST 26 ALT 24 Alkaline Phosphatase 94 Total Protein 7.1 Albumin 4.0 Globulin 3.1 Albumin/Globulin Ratio 1.3 Amylase Lipase 07/23/17 22:49 WBC RBC Hgb Hct MCV MCH MCHC RDW Plt Count MPV Gran % Lymph % (Auto) [place] % (Auto) Eos % (Auto) Baso % (Auto) Gran # Lymph # [place] # Eos # Baso # Sodium Potassium Chloride Carbon Dioxide Anion Gap BUN Creatinine Est GFR ( Amer) Est GFR (Non-Af Amer) POC Glucose (mg/dL) Random Glucose Calcium Total Bilirubin AST ALT Alkaline Phosphatase Total Protein Albumin Globulin Albumin/Globulin Ratio Amylase 129 H Lipase 82 Attending/Attestation - Attestation I have personally seen and examined this patient.: Yes I have fully participated in the care of the patient.: Yes I have reviewed all pertinent clinical information: Yes
--- NOTE | 2017-07-23 22:26 | CP.PCM.PN ---
Subjective - Date & Time of Evaluation Date of Evaluation: 07/23/17 Time of Evaluation: 22:26 - Subjective Subjective: S/P fall. See medical billing supervisor's note. Objective - Vital Signs/Intake and Output Vital Signs (last 24 hours): Temp Pulse Resp BP Pulse Ox 98.2 F 75 18 110/73 96 07/23/17 06:56 07/23/17 06:56 07/23/17 06:56 07/23/17 06:56 07/23/17 06:56 - Medications Medications: Current Medications Acetaminophen (Tylenol 325mg Tab) 650 mg PO Q6H PRN PRN Reason: pain/fever Last Admin: 07/22/17 02:41 Dose: 650 mg Acetaminophen/Butalbital/Caffeine (Fioricet) 1 tab PO Q4H PRN PRN Reason: Migraine headache Al Hydrox/Mg Hydrox/Simethicone (Maalox Plus 30 Ml) 30 ml PO DAILY PRN PRN Reason: Upset Stomach Artificial Tears (Refresh Opth Soln) 0.3 ml OU BID [facility] Last Admin: 07/23/17 16:30 Dose: 0.3 ml Artificial Tears (Refresh Opth Soln) 0.3 ml OU HS [facility] Last Admin: 07/22/17 21:41 Dose: 0.3 ml Clonazepam (Klonopin) 0.5 mg PO HS [facility] PRN Reason: Protocol Last Admin: 07/22/17 21:55 Dose: Not Given Gabapentin (Neurontin) 100 mg PO QAM [facility] PRN Reason: Protocol Last Admin: 07/23/17 10:00 Dose: 100 mg Gabapentin (Neurontin) 200 mg PO HS [facility] PRN Reason: Protocol Last Admin: 07/22/17 21:41 Dose: 200 mg Guaifenesin (Robitussin) 100 mg PO Q4H PRN PRN Reason: Cough Lamotrigine (Lamictal) 100 mg PO BID [facility] PRN Reason: Protocol Last Admin: 07/23/17 16:30 Dose: 100 mg Levothyroxine Sodium (Synthroid) 100 mcg PO 0800 [facility] Last Admin: 07/23/17 07:34 Dose: 100 mcg Lisinopril (Zestril) 20 mg PO DAILY [facility] Last Admin: 07/23/17 07:33 Dose: 20 mg Memantine (Namenda) 10 mg PO BID [facility] Last Admin: 07/23/17 16:30 Dose: 10 mg Polyethylene Glycol (Miralax) 17 gm PO BID [facility] Last Admin: 07/23/17 18:41 Dose: Not Given Quetiapine Fumarate (Seroquel) 50 mg PO HS [facility] PRN Reason: Protocol
[2017-07-23] MEDS: Apap-Butalbital-Caffeine 325-50-40mg Tab PO PRN (22:35)
--- NOTE | 2017-07-23 22:39 | PCM.FALL ---
<Andrade Gottlieb - Last Filed: 07/24/17 00:36> Post Fall Progress Note - Post Fall Fall Date: 07/23/17 Fall Time: 21:54 Description of Fall: Patient was found on floor by another patient in psychiatry unit. There was no loss of consciousness. Code star was called, patient was seen on the floor moving her head back and forth and verbally communicating. - Post Fall Exam Vital Sign: Temp Pulse Resp BP Pulse Ox 98.2 F 75 18 110/73 96 07/23/17 06:56 07/23/17 06:56 07/23/17 06:56 07/23/17 06:56 07/23/17 06:56 Skull Exam: Negative for: Scalp wound, Scalp hematoma, Scalp depression, Ridge in skull Eye Exam: Positive for: Pupils equal, Pupils reactive Ear Exam: Negative for: Discharge, Bleeding Nose Exam: Negative for: Discharge, Bleeding Skin Exam: Negative for: Lacerations, Grazes, Bruising Mouth Exam: Negative for: Tongue bitten, Teeth dislodge Neck Exam: Negative for: Tenderness, Tingling, Weakness Spinal Exam: Negative for: Tenderness, Tingling, Weakness Chest Exam: Negative for: Difficulty breathing, Tenderness in collar bones, Tenderness in ribs Abdomen Exam: Negative for: Tenderness Pelvic Exam: Negative for: Tenderness Arm Exam: Negative for: Deformity, Alteration in range of movement Leg Exam: Negative for: Deformity, Alteration in range of movement Impression/Plan: -Neurology on case and re-consulted -CT head reveals no intracranial hemorrhage -High risk fall precautions -Neurochecks q2h <Abbie Fine - Last Filed: 07/29/17 19:04> Post Fall Progress Note - Post Fall Exam Vital Sign: Temp Pulse Resp BP Pulse Ox 97.4 F L 61 20 110/66 96 07/29/17 07:47 07/29/17 09:12 07/29/17 07:47 07/29/17 09:12 07/23/17 06:56 Attending/Attestation - Attestation I have personally seen and examined this patient.: Yes I have fully participated in the care of the patient.: Yes I have reviewed all pertinent clinical information, including history, physical exam and plan: Yes Notes (Text): 07/29/17 19:03 Patient was seen in her room along with medical scientific officer. Agree with his notes.
[2017-07-23 22:54] LABS: BASO # 0.02 K/mm3 (0.0-2.0); BASO % 0.2 % (0.0-3.0); EOS # 0.1 (0.0-0.7); EOS % 1.4 % (1.5-5.0); GRAN # 4.68 (1.4-6.5); GRAN % 58.2 % (50.0-68.0); HEMOGLOBIN 12.4 g/dL (12.0-16.0); LYMPH # 2.5 (1.2-3.4); LYMPH % 31.2 % (22.0-35.0); MEAN CELL VOLUME 90.6 fl (80.0-105.0); MEAN CORPUSCULAR HEMOGLOBIN 28.4 pg (25.0-35.0); MEAN CORPUSCULAR HGB CONC 31.3 g/dl (31.0-37.0); MEAN PLATELET VOLUME 9.6 fl (7.0-11.0); MONO # 0.7 (0.1-0.6); RBC 4.37 10^6/uL (3.5-6.1); RED CELL DISTRIBUTION WIDTH 15.5 % (11.5-14.5)
[2017-07-23 23:04] LABS: ALB/GLOB RATIO 1.3 (1.1-1.8); CALCIUM 10.3 mg/dL (8.4-10.5)
[2017-07-24 01:45] LABS: AMYLASE 129 U/L (35-125); LIPASE 82 U/L (23-300)
--- NOTE | 2017-07-24 08:26 | CT ---
PROCEDURE: CT HEAD WITHOUT CONTRAST. HISTORY: code star COMPARISON: None available. TECHNIQUE: Axial computed tomography images were obtained through the head/brain without intravenous contrast. Radiation dose: Total exam DLP = 2102.78 mGy-cm. This CT exam was performed using one or more of the following dose reduction techniques: Automated exposure control, adjustment of the mA and/or kV according to patient size, and/or use of iterative reconstruction technique. FINDINGS: HEMORRHAGE: No intracranial hemorrhage. BRAIN: No mass effect or edema. Mild diffuse age-appropriate cerebral atrophy. Examination limited due to patient motion artifact. Mild periventricular white matter lucency consistent with age-related microvascular ischemic change. No evidence acute infarct. VENTRICLES: Unremarkable. No hydrocephalus. CALVARIUM: Unremarkable. PARANASAL SINUSES: Unremarkable as visualized. No significant inflammatory changes. MASTOID AIR CELLS: Unremarkable as visualized. No inflammatory changes. OTHER FINDINGS: None. IMPRESSION: No intracranial mass, hemorrhage or evidence of acute infarct. Age-appropriate atrophy and chronic white matter ischemic change. Preliminary interpretation of this examination was reported by [facility] at 10:55 p.m. on 07/23/2017. There is concurrence of this report with the preliminary interpretation.
[2017-07-24] MEDS: Levothyroxine 100 MCG TAB PO SCH (10:38)
[2017-07-24] MEDS: POLYETHYLENE GLYCOL 3350 17 GM/Dose PACKET PO SCH (12:55)
[2017-07-24] MEDS: Lubricant Eye Drops UD OU SCH ×2 (12:56→21:27)
--- NOTE | 2017-07-24 16:01 | PCM.PYCHPN ---
Psychiatric Progress Note - Psychiatric Progress Note Patient seen today, length of contact: 30min Patient Chief Complaint: "everyone stupid..." Problems Identified/Issues Discussed: Suicide/ homicide prevention, past psychiatric h/o, current psychiatric symptoms , medical problems, risk/benefits and alternatives of medications, medications compliance, coping strategies, substance abuse h/o, relapse prevention, importance of follow up with psychiatrist and therapist, discharge plan. Medical Problems: TD migraines dyslipidemia kidneys stones hypothyroidism Diagnostic Results: 07/17/17 18:00 07/17/17 18:00 Lab Results 07/18/17 06:30: Urine Opiates Screen Negative, Urine Methadone Screen Negative, Ur Barbiturates Screen Negative, Ur Phencyclidine Scrn Negative, Ur Amphetamines Screen Negative, U Benzodiazepines Scrn Negative, U Oth Cocaine Metabols Negative, U Cannabinoids Screen Negative 07/17/17 19:19: Urine Color Yellow, Urine Appearance Clear, Urine pH 7.0, Ur Specific [place] 1.015, Urine Protein Negative, Urine Glucose (UA) Negative, Urine Ketones Negative, Urine Blood Negative, Urine Nitrate Negative, Urine Bilirubin Negative, Urine Urobilinogen 0.2, Ur Leukocyte Esterase Negative 07/17/17 18:00: Alcohol, Quantitative < 10 07/17/17 18:00: Salicylates < 1 L, Acetaminophen < 10.0 L 07/17/17 18:00: Sodium 134, Potassium 4.1, Chloride 100, Carbon Dioxide 26, Anion Gap 13, BUN 15, Creatinine 0.7, Est GFR ( Amer) > 60, Est GFR (Non- Af Amer) > 60, Random Glucose 94, Calcium 9.9, Total Bilirubin 0.3, AST 26, ALT 29, Alkaline Phosphatase 96, Total Protein 6.8, Albumin 4.0, Globulin 2.8, Albumin/Globulin Ratio 1.4 07/17/17 18:00: WBC 7.3, RBC 3.86, Hgb 10.8 L, Hct 34.8 L, MCV 90.2, MCH 28.0, MCHC 31.0, RDW 15.4 H, Plt Count 345, MPV 9.3, Gran % 66.7, Lymph % (Auto) 23.9 , [place] % (Auto) 7.7 H, Eos % (Auto) 1.6, Baso % (Auto) 0.1, Gran # 4.85, Lymph # 1.7, [place] # 0.6, Eos # 0.1, Baso # 0.01 Vital Signs Temp Pulse Resp BP Pulse Ox 07/19/17 10:37 72 128/82 07/19/17 07:34 97.2 F L 72 20 128/82 07/18/17 15:00 98.5 F 72 20 166/64 H 07/18/17 11:54 98.0 F 61 18 116/71 99 07/18/17 10:14 98.8 F 63 18 119/73 99 07/18/17 08:06 98.2 F 67 18 143/67 98 07/18/17 05:30 59 L 18 119/65 95 07/18/17 04:05 63 19 112/65 92 L 07/18/17 03:00 66 16 141/80 94 L 07/17/17 21:10 70 15 127/74 95 07/17/17 19:10 67 19 133/79 98 07/17/17 17:11 97.9 F 71 18 149/[address] of the head wnl 07/23/17 2x DSM 5 Symptoms Update: Shortly pt is 77yo female with long h/o bipolar disorder, h/o been admitted to psychiatric inpatient unit at [facility], most recent was three years ago, pt currently lives at [facility], was referred by [place] for evaluation of disorganized, paranoid behavior, agitation, pt was refuing to take medications, was throwing herself on the floor, was argumentative, pt needs further evaluation and stabilization, meds adjustment. Pt presented with good personal hygiene, good ADLs, was seen at the dinning area. as per staff report pt was found on the floor yesterday, unwitnessed fall, medial team saw pt , CT of the head was done after fall, WNL. pt said that she had three bowel movements and she could also see blood in there (self reported, unwitnessed). Medical team saw pt already pt was started on 1:1 PT was called Orthopedist felipe was called (pt had h/o OA of the knee), had h/o injection to the knee. based on report and documents pt fell before the evening doses of meds, neither seroquel nor neurontin nor klonopin were given to the pt prior the fall. going back to the pt 's psych presentation, pt is disorganized, tangential and circumstantial thought process, pt was also grandiose, said that nurses are "stupid", pt was fixated on her medications and the way it should be given and at what time, then pt said "why they would need to give me medication at 2pm instead of 4pm?", when was asked what is pt's opinion, pt said "everybody just so dumb and stupid". 07/20/17, tx plan was discussed with pt's POA, risk/benefits and alternatives of meds discussed, pt's POA was appreciative. pt's POA called this junior technical writer over the weekend, asked to call him back, this junior technical writer called 07/23/17, left a message, awaiting for the call back. pt c/o migraine headaches, Neurology team was called, saw pt today, CT of the head done 07/23/17, WNL. AIMS 07/23/17 no worsening of the symptoms, severity of abnormal movements overall was1. AIMS 07/19/17 is 4, overall severity of abnormal movements overall was 1. AIMS 07/18/17 is some lip smacking, moving her tongue in and out, smiling and grimacing, chewing movements, AIMS 10, AIMS overall severity of abnormal movements overall was 2 AMIS scale was filed in the chart. as per staff pt is calm, no behavioral outbursts. Impression: schizoaffective bipolar type r/o bipolar with psychosis dementia Medication Change: Yes (seroquel decreased to 25mg) Medical Record Reviewed: Yes Consults ordered or reviewed: Medical consult appreciated Mental Status Examination - Cognitive Function Orientation: Person, Place Memory: Impaired Attention: Poor Concentration: Poor Association: WNL Fund of Knowledge: WNL - Mood Mood: Euphoric - Affect Affect: Broad (, expanded) - Speech Speech: Appropriate (overproductive) - Formal Thought Process Formal Thought Process: Delusions, Paranoia ("they are giving me wrong medications..."), Loosening of associations, Circumstantial - Suicidal Ideation Suicidal Ideation: No - Homicidal Ideation Homicidal Ideation: No Goal/Treatment Plan - Goal/Treatment Plan Need for Continued Stay: Remain at risks for inpatient hospitalization, Severe depression anxiety, Discharge may exacerbated symptoms, Severe functional impairment Progress Toward Problem(s) and Goals/Treatment Plan: Milieu/structure/supportive therapy Acetaminophen PRN Dextromethorphan HBr [Robitussin Lingering Cold Long-Acting Coughge] 15 mg PO Q6 PRN Gabapentin [Neurontin] will be given 100mg po tid for neuropathy, anxiety Levothyroxine Sodium [Levoxyl] 100 mcg PO DAILY Lisinopril [Zestril] 20 mg PO DAILY Memantine HCl 10 mg PO BID Polyethylene Glycol 3350 [Miralax] 17 gm PO BID clonazePAM [clonAZEPAM] 0.5 mg PO HS lamoTRIgine [LaMICtal] 100 mg PO BID will decrease seroquel 25mg hs for psychosis medical team saw pt for follow up PT was called 1:1 observation for safety Ortho consult called neurology consult appreciated pt's POA was called, discussed the plan 07/20/17, today called again 07/23/17, awaiting for the call back Follow up on labs Will monitor closely Pt was educated about risk/benefits and alternatives of medications, coping strategies (safety plan, suicide prevention) Estimated Date of D/C: 07/27/17 (will monitor closely)
--- NOTE | 2017-07-24 19:33 | PN ---
DATE: 07/24/2017 Followup for the patient's fall and headaches. SUBJECTIVE: This is a 77-year-old female that I have seen previously on 07/19/2017 for hypertension and hypothyroidism. The patient had an incident overnight where she had a fall. She is also complaining of migraine headaches. I have been asked by Dr. Pineda, the patient's psychiatrist who reevaluate. The patient was found on the floor. The patient had altered mental status. She had a CAT scan done that did not show any new abnormalities. She was seen by Dr. Gutierrez for her migraine headaches yesterday. She was given sumatriptan due to the headache, did improve, but still persisted. The patient said that she has bleeding at times rectally. She has no nausea. No vomiting. She states the headache is better, but still mildly present at a pain scale of 4-5/10. PHYSICAL EXAMINATION: VITAL SIGNS: Temperature is 97.9, pulse is 71, blood pressure is 104/60, and respirations are 20. GENERAL: The patient is lying in bed, flat, comfortable. HEENT: No oral lesion. Anicteric sclerae. Moist mucosa. NECK: No JVD, adenopathy, or thyromegaly. CARDIOVASCULAR: S1 and S2, regular. No murmurs, rubs, or gallops. LUNGS: Clear to auscultation bilaterally. No wheeze, rales, or rhonchi. ABDOMEN: Bowel sounds are positive, soft, nontender and nondistended. EXTREMITIES: No cyanosis, clubbing or edema. LABORATORY DATA: White count of 8.0 and hemoglobin of 12.4. Toxicology shows salicylate is less than 10, acetaminophen is less than 10, and alcohol is less than 10. Urine shows ketones are negative, blood is negative, and nitrites are negative. Chemistry shows a creatinine of 1.1. ASSESSMENT: 1. Fall. 2. Nephrolithiasis. 3. Hypothyroidism. 4. Headache. 5. Dyslipidemia. 6. Bipolar disorder. 7. Hypertension. PLAN: The patient is currently on Fioricet for her headaches p.r.n. The patient is on Lamictal. She is receiving MiraLax for constipation. She is on her gabapentin for neuropathy. The patient is on Seroquel. She is on Synthroid for her hypothyroidism. She is on Zestril for hypertension. I will have Dr. Campbell see the patient for her rectal bleeding, although her hemoglobin has been fairly steady. The patient can be given Fioricet to help with her pain as needed. Sj Bolden MD
[2017-07-25] MEDS: POLYETHYLENE GLYCOL 3350 17 GM/Dose PACKET PO SCH ×2 (08:24→18:22)
[2017-07-25] MEDS: Levothyroxine 100 MCG TAB PO SCH (08:26)
[2017-07-25] MEDS: Lubricant Eye Drops UD OU SCH ×3 (08:26→21:31)
--- NOTE | 2017-07-25 15:30 | PCM.PYCHPN ---
Psychiatric Progress Note - Psychiatric Progress Note Patient seen today, length of contact: 30min Patient Chief Complaint: "OMG, I am so happy you are my doctor". Problems Identified/Issues Discussed: Suicide/ homicide prevention, past psychiatric h/o, current psychiatric symptoms , medical problems, risk/benefits and alternatives of medications, medications compliance, coping strategies, substance abuse h/o, relapse prevention, importance of follow up with psychiatrist and therapist, discharge plan. Medical Problems: TD migraines dyslipidemia kidneys stones hypothyroidism Diagnostic Results: 07/17/17 18:00 07/17/17 18:00 Lab Results 07/18/17 06:30: Urine Opiates Screen Negative, Urine Methadone Screen Negative, Ur Barbiturates Screen Negative, Ur Phencyclidine Scrn Negative, Ur Amphetamines Screen Negative, U Benzodiazepines Scrn Negative, U Oth Cocaine Metabols Negative, U Cannabinoids Screen Negative 07/17/17 19:19: Urine Color Yellow, Urine Appearance Clear, Urine pH 7.0, Ur Specific [place] 1.015, Urine Protein Negative, Urine Glucose (UA) Negative, Urine Ketones Negative, Urine Blood Negative, Urine Nitrate Negative, Urine Bilirubin Negative, Urine Urobilinogen 0.2, Ur Leukocyte Esterase Negative 07/17/17 18:00: Alcohol, Quantitative < 10 07/17/17 18:00: Salicylates < 1 L, Acetaminophen < 10.0 L 07/17/17 18:00: Sodium 134, Potassium 4.1, Chloride 100, Carbon Dioxide 26, Anion Gap 13, BUN 15, Creatinine 0.7, Est GFR ( Amer) > 60, Est GFR (Non- Af Amer) > 60, Random Glucose 94, Calcium 9.9, Total Bilirubin 0.3, AST 26, ALT 29, Alkaline Phosphatase 96, Total Protein 6.8, Albumin 4.0, Globulin 2.8, Albumin/Globulin Ratio 1.4 07/17/17 18:00: WBC 7.3, RBC 3.86, Hgb 10.8 L, Hct 34.8 L, MCV 90.2, MCH 28.0, MCHC 31.0, RDW 15.4 H, Plt Count 345, MPV 9.3, Gran % 66.7, Lymph % (Auto) 23.9 , [place] % (Auto) 7.7 H, Eos % (Auto) 1.6, Baso % (Auto) 0.1, Gran # 4.85, Lymph # 1.7, [place] # 0.6, Eos # 0.1, Baso # 0.01 Vital Signs Temp Pulse Resp BP Pulse Ox 07/19/17 10:37 72 128/82 07/19/17 07:34 97.2 F L 72 20 128/82 07/18/17 15:00 98.5 F 72 20 166/64 H 07/18/17 11:54 98.0 F 61 18 116/71 99 07/18/17 10:14 98.8 F 63 18 119/73 99 07/18/17 08:06 98.2 F 67 18 143/67 98 07/18/17 05:30 59 L 18 119/65 95 07/18/17 04:05 63 19 112/65 92 L 07/18/17 03:00 66 16 141/80 94 L 07/17/17 21:10 70 15 127/74 95 07/17/17 19:10 67 19 133/79 98 07/17/17 17:11 97.9 F 71 18 149/[address] of the head wnl 07/23/17 2x DSM 5 Symptoms Update: Shortly pt is 77yo female with long h/o bipolar disorder, h/o been admitted to psychiatric inpatient unit at [facility], most recent was three years ago, pt currently lives at [facility], was referred by [place] for evaluation of disorganized, paranoid behavior, agitation, pt was refuing to take medications, was throwing herself on the floor, was argumentative, pt needs further evaluation and stabilization, meds adjustment. Pt presented with good personal hygiene, good ADLs, was seen at the [facility] area , pt is s/p fall 07/23/17 pt was started on 1:1 PT was called Orthopedist heribertoal was called, discussed with today medical team saw pt GI team was called by medical team discussed with Neurologist today pt c/o migraine headaches, pt could continue Fioricet, CT of the head done 07/23/17, WNL. going back to the pt 's psych presentation, pt is disorganized, tangential and circumstantial thought process, pt was also grandiose, "everybody just so dumb and stupid". overidealizing this technical writer, fixated on color of meds, at times refused meds. this technical writer cannot increase seroquel because risk of falls and tardive dyskinesia. 07/20/17, tx plan was discussed with pt's POA, risk/benefits and alternatives of meds discussed, pt's POA was appreciative. pt's POA called this technical writer over the weekend, asked to call him back, this technical writer called 07/23/17, left a message, awaiting for the call back. AIMS 07/23/17 no worsening of the symptoms, severity of abnormal movements overall was1. AIMS 07/19/17 is 4, overall severity of abnormal movements overall was 1. AIMS 07/18/17 is some lip smacking, moving her tongue in and out, smiling and grimacing, chewing movements, AIMS 10, AIMS overall severity of abnormal movements overall was 2 AMIS scale was filed in the chart. as per staff pt is calm, no behavioral outbursts. Impression: schizoaffective bipolar type r/o bipolar with psychosis dementia Medication Change: Yes (seroquel 25mg) Medical Record Reviewed: Yes Consults ordered or reviewed: Medical consult appreciated Mental Status Examination - Cognitive Function Orientation: Person, Place Memory: Impaired Attention: Poor Concentration: Poor Association: WNL Fund of Knowledge: WNL - Mood Mood: Euphoric - Affect Affect: Broad (, expanded) - Speech Speech: Appropriate (overproductive) - Formal Thought Process Formal Thought Process: Delusions, Paranoia ("they are giving me wrong medications..."), Loosening of associations, Circumstantial - Suicidal Ideation Suicidal Ideation: No - Homicidal Ideation Homicidal Ideation: No Goal/Treatment Plan - Goal/Treatment Plan Need for Continued Stay: Remain at risks for inpatient hospitalization, Severe depression anxiety, Discharge may exacerbated symptoms, Severe functional impairment Progress Toward Problem(s) and Goals/Treatment Plan: Milieu/structure/supportive therapy Acetaminophen PRN Dextromethorphan HBr [Robitussin Lingering Cold Long-Acting Coughge] 15 mg PO Q6 PRN Gabapentin [Neurontin] will be given 100mg po tid for neuropathy, anxiety Levothyroxine Sodium [Levoxyl] 100 mcg PO DAILY Lisinopril [Zestril] 20 mg PO DAILY Memantine HCl 10 mg PO BID Polyethylene Glycol 3350 [Miralax] 17 gm PO BID clonazePAM [clonAZEPAM] 0.5 mg PO HS lamoTRIgine [LaMICtal] 100 mg PO BID will decrease seroquel 25mg hs for psychosis medical team saw pt for follow up PT was called, no official consult yet 1:1 observation for safety/fall Ortho consult called neurology consult appreciated pt's POA was called, discussed the plan 07/20/17, today called again 07/23/17, awaiting for the call back Follow up on labs Will monitor closely Pt was educated about risk/benefits and alternatives of medications, coping strategies (safety plan, suicide prevention) Estimated Date of D/C: 07/31/17 (will monitor closely)
--- NOTE | 2017-07-25 15:35 | CP.PCM.CON ---
<Iliana Ames - Last Filed: 07/25/17 17:38> History of Present Illness - History of Present Illness History of Present Illness: Seen and examined at the bedside earlier today, chart review. GI consult requested for rectal bleeding. HPI: This is a 77-year-old female with a past medical history of bipolar disorder, depression, hypertension and hypothyroidism is seen in the psychiatric unit for paranoia at the past couple of days. The patient is from [address] The patient yesterday had 2 bowel movements and initially saw blood in the toilet with the stool, second bowel movement and noticed blood on the tissue. She did complain of some abdominal cramping that necessitated her to have a bowel movement. Otherwise the patient states that she has a bowel movement daily and does not notice any change in bowel habits. No complaints of any weight loss or loss of appetite. Denies any use of NSAIDs, no complaints of dyspepsia and nausea or vomiting. Patient stated that she believes her abdominal pain started after taking her Neurontin and Levoxyl. She did have a bowel movement today and did not notice any blood. Her last endoscopy noted was October 2016 found to have gastritis, esophageal ulcer,gastric biopsies showed focal active gastritis no intestinal metaplasia or H. pylori. Colonoscopy was done on 02/18/2014 for history of colon polyps she was found to only have diverticulosis no polyps were found. Past medical history is bipolar disorder, depression, history of colon polyps, diverticulosis, gastritis, renal stones, hypothyroidism, dyslipidemia, hypertension. Surgical history: Removal of one fallopian tubeComment denies anyother abdominal or cardiac procedures Allergies: Codeine Medications: Reviewed as per [facility] Social history: Denies smoking, EtOH or recreational drug use Family history: Noncontributory this time Review of systems systems reviewed. Positive findings see HPI Past Patient History - Infectious Disease Hx of Infectious Diseases: None - Tetanus Immunizations Tetanus Immunization: Unknown - Past Medical History & Family History Past Medical History?: Yes - Past Social History Smoking Status: Never Smoked - CARDIAC Hx Cardiac Disorders: Yes Hx Hypertension: Yes - PULMONARY Hx Respiratory Disorders: No Hx Asthma: No Hx Bronchitis: No Hx Chronic Obstructive Pulmonary Disease (COPD): No Hx Emphysema: No Hx Pneumonia: No Hx Sleep Apnea: No - NEUROLOGICAL Hx Alzheimer's Disease: No Hx Dementia: No Hx Migraine: Yes Hx Parkinson's Disease: No Hx Seizures: No Hx Transient Ischemic Attacks (TIA): No - HEENT Hx HEENT Problems: No Other/Comment: Wears glasses near/far - RENAL Hx Chronic Kidney Disease: Yes Hx Kidney Stones: Yes - ENDOCRINE/METABOLIC Hx Endocrine Disorders: Yes Hx Hypothyroidism: Yes - HEMATOLOGICAL/ONCOLOGICAL Hx Blood Disorders: No Hx Anemia: No Hx Sickle Cell Disease: No - INTEGUMENTARY Hx Dermatological Problems: No - MUSCULOSKELETAL/RHEUMATOLOGICAL Hx Arthritis: No Hx Falls: Yes Hx Fractures: No Hx Osteoporosis: No Hx Rheumatoid Arthritis: No - GASTROINTESTINAL Hx Crohn's Disease: No Hx Diverticulitis: Yes Hx Esophageal Varices: Yes Hx Gall Bladder Disease: No Hx Pancreatitis: No - GENITOURINARY/GYNECOLOGICAL Hx Sexually Transmitted Disorders: No - PSYCHIATRIC Hx Psychophysiologic Disorder: Yes Hx Bipolar Disorder: Yes Hx Depression: Yes Hx Substance Use: No - SURGICAL HISTORY Hx Appendectomy: Yes Hx Cholecystectomy: Yes Hx Coronary Stent: Yes - ANESTHESIA Hx Anesthesia: No Meds Allergies/Adverse Reactions: Allergies Allergy/AdvReac Type Severity Reaction Status Date / Time codeine Allergy RASH Verified 07/17/17 16:50 - Medications Medications: Current Medications Acetaminophen (Tylenol 325mg Tab) 650 mg PO Q6H PRN PRN Reason: pain/fever Last Admin: 07/22/17 02:41 Dose: 650 mg Acetaminophen/Butalbital/Caffeine (Fioricet) 1 tab PO Q4H PRN PRN Reason: Migraine headache Last Admin: 07/23/17 22:35 Dose: 1 tab Al Hydrox/Mg Hydrox/Simethicone (Maalox Plus 30 Ml) 30 ml PO DAILY PRN PRN Reason: Upset Stomach Artificial Tears (Refresh Opth Soln) 0.3 ml OU BID GAVIN Last Admin: 07/25/17 08:26 Dose: 0.3 ml Artificial Tears (Refresh Opth Soln) 0.3 ml OU HS GAVIN Last Admin: 07/24/17 21:27 Dose: 0.3 ml Clonazepam (Klonopin) 0.5 mg PO HS GAVIN PRN Reason: Protocol Last Admin: 07/24/17 21:18 Dose: 0.5 mg Gabapentin (Neurontin) 100 mg PO QAM GAVIN PRN Reason: Protocol Last Admin: 07/25/17 11:52 Dose: 100 mg Gabapentin (Neurontin) 200 mg PO HS GAVIN PRN Reason: Protocol Last Admin: 07/24/17 21:18 Dose: 200 mg Guaifenesin (Robitussin) 100 mg PO Q4H PRN PRN Reason: Cough Lamotrigine (Lamictal) 100 mg PO BID ON LICENSE OF [facility] PRN Reason: Protocol Last Admin: 07/25/17 08:24 Dose: 100 mg Levothyroxine Sodium (Synthroid) 100 mcg PO 0800 ON LICENSE OF [facility] Last Admin: 07/25/17 08:26 Dose: 100 mcg Lisinopril (Zestril) 20 mg PO DAILY ON LICENSE OF [facility] Last Admin: 07/25/17 11:52 Dose: Not Given Memantine (Namenda) 10 mg PO BID ON LICENSE OF [facility] Last Admin: 07/25/17 08:24 Dose: 10 mg Polyethylene Glycol (Miralax) 17 gm PO BID ON LICENSE OF [facility] Last Admin: 07/25/17 08:24 Dose: Not Given Quetiapine Fumarate (Seroquel) 25 mg PO HS ON LICENSE OF [facility] PRN Reason: Protocol Last Admin: 07/24/17 21:19 Dose: 25 mg Physical Exam - Constitutional Appears: No Acute Distress - Head Exam Head Exam: NORMOCEPHALIC - Eye Exam Eye Exam: Normal appearance. absent: Scleral icterus - ENT Exam ENT Exam: Mucous Membranes Moist - Neck Exam Neck exam: Positive for: Normal Inspection - Respiratory Exam Respiratory Exam: Clear to Auscultation Bilateral, NORMAL BREATHING PATTERN. absent: Respiratory Distress - Cardiovascular Exam Cardiovascular Exam: +S1, +S2 - GI/Abdominal Exam GI & Abdominal Exam: Normal Bowel Sounds, Soft. absent: Distended, Guarding, Organomegaly, Rebound, Tenderness - Rectal Exam Rectal Exam: Hemorrhoids (large external, noted brown stool on glove, no blood or mass palpated) - Extremities Exam Extremities exam: Positive for: pedal pulses present. Negative for: calf tenderness, pedal edema - Neurological Exam Neurological exam: Alert, Oriented x3 - Skin Skin Exam: Dry, Warm Results - Vital Signs Recent Vital Signs: Last Vital Signs Temp 97.6 F 07/25/17 07:25 Pulse 622 H 07/25/17 07:25 Resp 20 07/25/17 07:25 BP 94/49 L 07/25/17 07:25 Pulse Ox 96 07/23/17 06:56 - Labs Result Diagrams: 07/23/17 22:49 07/23/17 22:49 Assessment & Plan - Assessment and Plan (Free Text) Assessment: Assessment: Rectal bleeding, differentials to consider is hemorrhoids/fissure, H&H steady History of colon polyps, last colonoscopy was 2013 no polyps found only diverticulosis Esophageal ulcer Bipolar disorder Hypertension Hypothyroidism Plan: Continue MiraLAX Monitor H&H, check CBC in a.m. Continue diet as tolerated start Protonix 40 daily will need FU egd for esophageal ulcer Discussed with patient that she she may benefit from elective colonoscopy which can be considered outpatient unless patient has decreasing hemoglobin and active bleeding. Thank you for this consult and for allowing us to participate in patient's care , further recommendations based upon clinical course. Seen and discussed with Dr. Campbell. <Akash Campbell V - Last Filed: 07/25/17 22:36> Meds - Medications Medications: Current Medications Acetaminophen (Tylenol 325mg Tab) 650 mg PO Q6H PRN PRN Reason: pain/fever Last Admin: 07/22/17 02:41 Dose: 650 mg Acetaminophen/Butalbital/Caffeine (Fioricet) 1 tab PO Q4H PRN PRN Reason: Migraine headache Last Admin: 07/23/17 22:35 Dose: 1 tab Al Hydrox/Mg Hydrox/Simethicone (Maalox Plus 30 Ml) 30 ml PO DAILY PRN PRN Reason: Upset Stomach Artificial Tears (Refresh Opth Soln) 0.3 ml OU BID GAVIN Last Admin: 07/25/17 18:24 Dose: 0.3 ml Artificial Tears (Refresh Opth Soln) 0.3 ml OU HS GAVIN Last Admin: 07/25/17 21:31 Dose: 0.3 ml Clonazepam (Klonopin) 0.5 mg PO HS GAVIN PRN Reason: Protocol Last Admin: 07/25/17 21:32 Dose: 0.5 mg Gabapentin (Neurontin) 100 mg PO QAM GAVIN PRN Reason: Protocol Last Admin: 07/25/17 11:52 Dose: 100 mg Gabapentin (Neurontin) 200 mg PO HS GAVIN PRN Reason: Protocol Last Admin: 07/25/17 21:31 Dose: 200 mg Guaifenesin (Robitussin) 100 mg PO Q4H PRN PRN Reason: Cough Lamotrigine (Lamictal) 100 mg PO BID GAVIN PRN Reason: Protocol Last Admin: 07/25/17 18:21 Dose: 100 mg Levothyroxine Sodium (Synthroid) 100 mcg PO 0800 ON LICENSE OF [facility] Last Admin: 07/25/17 08:26 Dose: 100 mcg Lisinopril (Zestril) 20 mg PO DAILY ON LICENSE OF [facility] Last Admin: 07/25/17 11:52 Dose: Not Given Memantine (Namenda) 10 mg PO BID ON LICENSE OF [facility] Last Admin: 07/25/17 18:21 Dose: 10 mg Polyethylene Glycol (Miralax) 17 gm PO BID ON LICENSE [facility] Last Admin: 07/25/17 18:22 Dose: Not Given Quetiapine Fumarate (Seroquel) 25 mg PO HS ON LICENSE OF [facility] PRN Reason: Protocol Last Admin: 07/25/17 21:32 Dose: 25 mg Results - Vital Signs Recent Vital Signs: Last Vital Signs Temp 97.6 F 07/25/17 07:25 Pulse 71 07/25/17 16:00 Resp 20 07/25/17 07:25 BP 112/61 07/25/17 16:00 Pulse Ox 96 07/23/17 06:56 - Labs Result Diagrams: 07/23/17 22:49 07/23/17 22:49 Attending/Attestation - Attestation I have personally seen and examined this patient.: Yes I have fully participated in the care of the patient.: Yes I have reviewed all pertinent clinical information: Yes Notes (Text): This is an addendum to GI consult report dictated by Iliana Ames APN.The patient was seen and examined earlier. Medical records, lab studies, imagings were reviewed. Last 24 hours events reviewed. Agreed with the above treatment plan as outlined in Iliana Ames APN's notes the with the addition of the following On examination abdomen was soft no tenderness Patient reports small amount of bright red per rectum. Patient with history of esophageal ulcers in the past last endoscopy report reviewed. Would recommend to repeat endoscopy evaluation and also elective colonoscopy evaluation Follow-up of hemoglobin and hematocrit Will start empiric PPI therapy Thank you very much for allowing us to participate in the care of the patient 07/25/17 22:35
[2017-07-26] MEDS: Apap-Butalbital-Caffeine 325-50-40mg Tab PO PRN (05:51)
[2017-07-26] MEDS: POLYETHYLENE GLYCOL 3350 17 GM/Dose PACKET PO SCH ×2 (08:00→16:47)
[2017-07-26] MEDS: Lubricant Eye Drops UD OU SCH ×3 (08:00→21:14)
[2017-07-26] MEDS: Levothyroxine 100 MCG TAB PO SCH (08:07)
--- NOTE | 2017-07-26 08:10 | CON ---
DATE: 07/25/2017 HISTORY OF PRESENT ILLNESS: The patient is a 77-year-old female in room 508, bed one, with complaints of right knee pain worse than left with mild effusion of the right knee. She has a private orthopedic doctor who has been injecting her with Hyalgan with good results. Since she walks with a walker, the pain is not that bad today, but I will order x-ray of her knees, best part would be standing x-rays to see how significant the arthritis is as she can move her knees well, has no pain to palpation, mild effusion of the right knee, so get x-rays of the knees, to be injected with Depo-Medrol we could do that as I do not give Hyalgan in the hospital because it needs every week for three shots once a week, so we could temporize with Depo-Medrol injection if the x-rays show significant arthrosis, await for the x-rays to come back, but it looks like she does have 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 Hermes Marin DO MTDD
--- NOTE | 2017-07-26 14:41 | PCM.PYCHPN ---
Psychiatric Progress Note - Psychiatric Progress Note Patient seen today, length of contact: 30min Patient Chief Complaint: "I will tell you a big secret, when I was laying down with my eyes closed at the night, staff thought that I am sleeping, but I was not, they opened my mouth and put some pills inside my mouth, I pretended nothing happened" (it is delusions, nobody put any medications in pt's mouth) Problems Identified/Issues Discussed: Suicide/ homicide prevention, past psychiatric h/o, current psychiatric symptoms , medical problems, risk/benefits and alternatives of medications, medications compliance, coping strategies, substance abuse h/o, relapse prevention, importance of follow up with psychiatrist and therapist, discharge plan. Medical Problems: TD migraines dyslipidemia kidneys stones hypothyroidism Diagnostic Results: 07/17/17 18:00 07/17/17 18:00 Lab Results 07/18/17 06:30: Urine Opiates Screen Negative, Urine Methadone Screen Negative, Ur Barbiturates Screen Negative, Ur Phencyclidine Scrn Negative, Ur Amphetamines Screen Negative, U Benzodiazepines Scrn Negative, U Oth Cocaine Metabols Negative, U Cannabinoids Screen Negative 07/17/17 19:19: Urine Color Yellow, Urine Appearance Clear, Urine pH 7.0, Ur Specific [place] 1.015, Urine Protein Negative, Urine Glucose (UA) Negative, Urine Ketones Negative, Urine Blood Negative, Urine Nitrate Negative, Urine Bilirubin Negative, Urine Urobilinogen 0.2, Ur Leukocyte Esterase Negative 07/17/17 18:00: Alcohol, Quantitative < 10 07/17/17 18:00: Salicylates < 1 L, Acetaminophen < 10.0 L 07/17/17 18:00: Sodium 134, Potassium 4.1, Chloride 100, Carbon Dioxide 26, Anion Gap 13, BUN 15, Creatinine 0.7, Est GFR ( Amer) > 60, Est GFR (Non- Af Amer) > 60, Random Glucose 94, Calcium 9.9, Total Bilirubin 0.3, AST 26, ALT 29, Alkaline Phosphatase 96, Total Protein 6.8, Albumin 4.0, Globulin 2.8, Albumin/Globulin Ratio 1.4 07/17/17 18:00: WBC 7.3, RBC 3.86, Hgb 10.8 L, Hct 34.8 L, MCV 90.2, MCH 28.0, MCHC 31.0, RDW 15.4 H, Plt Count 345, MPV 9.3, Gran % 66.7, Lymph % (Auto) 23.9 , Barry % (Auto) 7.7 H, Eos % (Auto) 1.6, Baso % (Auto) 0.1, Gran # 4.85, Lymph # 1.7, Barry # 0.6, Eos # 0.1, Baso # 0.01 Vital Signs Temp Pulse Resp BP Pulse Ox 07/19/17 10:37 72 128/82 07/19/17 07:34 97.2 F L 72 20 128/82 07/18/17 15:00 98.5 F 72 20 166/64 H 07/18/17 11:54 98.0 F 61 18 116/71 99 07/18/17 10:14 98.8 F 63 18 119/73 99 07/18/17 08:06 98.2 F 67 18 143/67 98 07/18/17 05:30 59 L 18 119/65 95 07/18/17 04:05 63 19 112/65 92 L 07/18/17 03:00 66 16 141/80 94 L 07/17/17 21:10 70 15 127/74 95 07/17/17 19:10 67 19 133/79 98 07/17/17 17:11 97.9 F 71 18 149/[address] of the head wnl 07/23/17 2x DSM 5 Symptoms Update: Shortly pt is 77yo female with long h/o bipolar disorder, h/o been admitted to psychiatric inpatient unit at [facility], most recent was three years ago, pt currently lives at [facility], was referred by ND for evaluation of disorganized, paranoid behavior, agitation, pt was refuing to take medications, was throwing herself on the floor, was argumentative, pt needs further evaluation and stabilization, meds adjustment. Pt presented with good personal hygiene, good ADLs, was seen at the hallway area , with PT, pt was walking using a walker. pt ambulates with more steady gait, will d/c 1:1. Orthopedist felipe was called, discussed with today medical team saw pt GI team was called by medical team discussed with Neurologist today pt c/o migraine headaches, pt could continue Fioricet, CT of the head done 07/23/17, WNL. going back to the pt 's psych presentation, pt is pleasant, thought process tangential and circumstantial thought process, less grandiose, more pleasant. Pt is paranoid and delusional "I will tell you a big secret, when I was laying down with my eyes closed at the night, staff thought that I am sleeping, but I was not, they opened my mouth and put some pills inside my mouth, I pretended nothing happened", it is delusional statement, nobody forced any meds in pt. 07/20/17, tx plan was discussed with pt's POA, risk/benefits and alternatives of meds discussed, pt's POA was appreciative. pt's POA called this casualty underwriter over the weekend, asked to call him back, this casualty underwriter called 07/23/17, left a message, awaiting for the call back. AIMS 07/23/17 no worsening of the symptoms, severity of abnormal movements overall was1. AIMS 07/19/17 is 4, overall severity of abnormal movements overall was 1. AIMS 07/18/17 is some lip smacking, moving her tongue in and out, smiling and grimacing, chewing movements, AIMS 10, AIMS overall severity of abnormal movements overall was 2 AMIS scale was filed in the chart. as per staff pt is calm, no behavioral outbursts, at time grandiose. Impression: schizoaffective bipolar type r/o bipolar with psychosis Medication Change: Yes (seroquel 50mg hs) Medical Record Reviewed: Yes Consults ordered or reviewed: Medical consult appreciated Mental Status Examination - Cognitive Function Orientation: Person, Place Memory: Impaired Attention: Poor Concentration: Poor Association: WNL Fund of Knowledge: WNL - Mood Mood: Euphoric - Affect Affect: Broad (, expanded) - Speech Speech: Appropriate (overproductive) - Formal Thought Process Formal Thought Process: Delusions, Paranoia ("they are giving me wrong medications..."), Loosening of associations, Circumstantial - Suicidal Ideation Suicidal Ideation: No - Homicidal Ideation Homicidal Ideation: No Goal/Treatment Plan - Goal/Treatment Plan Need for Continued Stay: Remain at risks for inpatient hospitalization, Severe depression anxiety, Discharge may exacerbated symptoms, Severe functional impairment Progress Toward Problem(s) and Goals/Treatment Plan: Milieu/structure/supportive therapy Acetaminophen PRN Dextromethorphan HBr [Robitussin Lingering Cold Long-Acting Coughge] 15 mg PO Q6 PRN Gabapentin [Neurontin] will be given 100mg po tid for neuropathy, anxiety Levothyroxine Sodium [Levoxyl] 100 mcg PO DAILY Lisinopril [Zestril] 20 mg PO DAILY Memantine HCl 10 mg PO BID Polyethylene Glycol 3350 [Miralax] 17 gm PO BID clonazePAM [clonAZEPAM] 0.5 mg PO HS lamoTRIgine [LaMICtal] 100 mg PO BID seroquel 50mg hs for psychosis medical team saw pt for follow up PT was called, no official consult yet 1:1 observation for safety/fall Ortho consult called neurology consult appreciated pt's POA was called, discussed the plan 07/20/17, today called again 07/23/17, awaiting for the call back Follow up on labs Will monitor closely Pt was educated about risk/benefits and alternatives of medications, coping strategies (safety plan, suicide prevention) Estimated Date of D/C: 07/31/17 (will monitor closely)
[2017-07-27 08:27] LABS: BASO # 0.02 K/mm3 (0.0-2.0); BASO % 0.3 % (0.0-3.0); EOS # 0.2 (0.0-0.7); EOS % 2.5 % (1.5-5.0); GRAN # 3.65 (1.4-6.5); GRAN % 61.7 % (50.0-68.0); HEMOGLOBIN 12.8 g/dL (12.0-16.0); LYMPH # 1.7 (1.2-3.4); LYMPH % 27.9 % (22.0-35.0); MEAN CORPUSCULAR HEMOGLOBIN 28.6 pg (25.0-35.0); MEAN CORPUSCULAR HGB CONC 31.1 g/dl (31.0-37.0); MEAN PLATELET VOLUME 9.8 fl (7.0-11.0); MONO # 0.5 (0.1-0.6); MONO % 7.6 % (1.0-6.0); RBC 4.48 10^6/uL (3.5-6.1); RED CELL DISTRIBUTION WIDTH 15.2 % (11.5-14.5); WHITE BLOOD COUNT 5.9 10^3/ul (4.5-11.0)
[2017-07-27] MEDS: POLYETHYLENE GLYCOL 3350 17 GM/Dose PACKET PO SCH ×2 (08:30→17:02)
[2017-07-27] MEDS: Levothyroxine 100 MCG TAB PO SCH (08:32)
[2017-07-27] MEDS: Lubricant Eye Drops UD OU SCH ×3 (08:32→21:08)
--- NOTE | 2017-07-27 09:01 | PN ---
DATE: 07/26/2017 SUBJECTIVE: This patient was seen and evaluated earlier today, tolerating the diet. No further episodes of bleeding. No complaints of any abdominal pain. PHYSICAL EXAMINATION VITAL SIGNS: Temperature is 97.2, blood pressure is 111/54, respirations 20 and O2 saturation is 96%. HEENT: Atraumatic. Anicteric. NECK: Supple. HEART: S1 and S2 heard. LUNGS: Bilateral air entry present. ABDOMEN: Soft. There is no tenderness. EXTREMITIES: No edema. No cyanosis. LABORATORY DATA: Hemoglobin 12.4, hematocrit 39.6, WBC is 8.0 and platelets 364. Chemistries: BUN 23 and creatinine 1.1. Amylase 129. IMPRESSION: This 77-year-old patient with bipolar disorder was admitted for disorganized paranoid behavior, transferred from the [facility]. The patient has history of esophageal ulcerations in the past. Presently, restarted on proton pump inhibitor. The patient did have some rectal bleeding. No further episode. This patient would benefit from esophagogastroduodenoscopy and coloscopy. This can be done as an outpatient and had a detailed discussion with the patient. We will follow up hemoglobin and hematocrit. If the patient develops an active bleeding, the patient will be scheduled for an inpatient endoscopic evaluation. Thank you very much for allowing me to participate in the care of the patient. Akash Campbell MD
--- NOTE | 2017-07-27 11:30 | CP.PCM.PN ---
Subjective - Date & Time of Evaluation Date of Evaluation: 07/27/17 Time of Evaluation: 10:05 - Subjective Subjective: S&E at bedside, chart reviewed. Patient having BM, no more bleeding noted. Denies N/V or abdominal pain. CBC drawn this am and HBG 12, stable. No new complaints. Objective - Vital Signs/Intake and Output Vital Signs (last 24 hours): Temp Pulse Resp BP Pulse Ox 97.2 F L 64 20 134/70 96 07/26/17 07:31 07/26/17 16:00 07/26/17 07:31 07/26/17 16:00 07/23/17 06:56 - Medications Medications: Current Medications Acetaminophen (Tylenol 325mg Tab) 650 mg PO Q6H PRN PRN Reason: pain/fever Last Admin: 07/22/17 02:41 Dose: 650 mg Acetaminophen/Butalbital/Caffeine (Fioricet) 1 tab PO Q4H PRN PRN Reason: Migraine headache Last Admin: 07/26/17 05:51 Dose: 1 tab Al Hydrox/Mg Hydrox/Simethicone (Maalox Plus 30 Ml) 30 ml PO DAILY PRN PRN Reason: Upset Stomach Artificial Tears (Refresh Opth Soln) 0.3 ml OU BID GAVIN Last Admin: 07/27/17 08:32 Dose: 0.3 ml Artificial Tears (Refresh Opth Soln) 0.3 ml OU HS GAVIN Last Admin: 07/26/17 21:14 Dose: 0.3 ml Clonazepam (Klonopin) 0.5 mg PO HS GAVIN PRN Reason: Protocol Last Admin: 07/26/17 21:14 Dose: 0.5 mg Gabapentin (Neurontin) 100 mg PO QAM GAVIN PRN Reason: Protocol Last Admin: 07/26/17 16:40 Dose: 100 mg Gabapentin (Neurontin) 200 mg PO HS GAVIN PRN Reason: Protocol Last Admin: 07/26/17 21:14 Dose: 200 mg Guaifenesin (Robitussin) 100 mg PO Q4H PRN PRN Reason: Cough Lamotrigine (Lamictal) 100 mg PO BID GAVIN PRN Reason: Protocol Last Admin: 07/27/17 08:31 Dose: 100 mg Levothyroxine Sodium (Synthroid) 100 mcg PO 0800 GAVIN Last Admin: 07/27/17 08:32 Dose: 100 mcg Lisinopril (Zestril) 20 mg PO DAILY [facility] Last Admin: 07/27/17 08:32 Dose: 20 mg Memantine (Namenda) 10 mg PO BID [facility] Last Admin: 07/27/17 08:31 Dose: 10 mg Polyethylene Glycol (Miralax) 17 gm PO BID [facility] Last Admin: 07/27/17 08:30 Dose: Not Given Quetiapine Fumarate (Seroquel) 50 mg PO [facility] PRN Reason: Protocol Last Admin: 07/26/17 21:14 Dose: 50 mg - Labs Labs: 07/27/17 08:00 07/23/17 22:49 - Constitutional Appears: No Acute Distress - Eye Exam Eye Exam: Normal appearance. absent: Scleral icterus - ENT Exam ENT Exam: Mucous Membranes Moist - Neck Exam Neck Exam: Normal Inspection - Respiratory Exam Respiratory Exam: Clear to Ausculation Bilateral, NORMAL BREATHING PATTERN. absent: Respiratory Distress - Cardiovascular Exam Cardiovascular Exam: +S1, +S2 - GI/Abdominal Exam GI & Abdominal Exam: Soft, Normal Bowel Sounds. absent: Guarding, Tenderness, Rebound - Extremities Exam Extremities Exam: absent: Calf Tenderness, Pedal Edema - Neurological Exam Neurological Exam: Alert, Awake, Oriented x3 Assessment and Plan - Assessment and Plan (Free Text) Assessment: Assessment: Rectal bleeding, differentials to consider is hemorrhoids/fissure, H&H steady, No further bleeding History of colon polyps, last colonoscopy was 2013 no polyps found only diverticulosis Esophageal ulcer Bipolar disorder Hypertension Hypothyroidism Plan: Continue MiraLAX Monitor H&H Continue diet as tolerated continue Protonix 40 daily will need FU egd for esophageal ulcer Discussed with patient that she would benefit from elective colonoscopy/EGD which can be considered outpatient unless patient has decreasing hemoglobin and active bleeding. Seen and discussed with Dr. Campbell.
[2017-07-27] MEDS: Apap-Butalbital-Caffeine 325-50-40mg Tab PO PRN ×2 (13:19→21:13)
--- NOTE | 2017-07-27 18:08 | PCM.PYCHPN ---
Psychiatric Progress Note - Psychiatric Progress Note Patient seen today, length of contact: 30min Patient Chief Complaint: "they are tricking me by giving me wrong medications.." Problems Identified/Issues Discussed: Suicide/ homicide prevention, past psychiatric h/o, current psychiatric symptoms , medical problems, risk/benefits and alternatives of medications, medications compliance, coping strategies, substance abuse h/o, relapse prevention, importance of follow up with psychiatrist and therapist, discharge plan. Medical Problems: TD migraines dyslipidemia kidneys stones hypothyroidism Diagnostic Results: 07/17/17 18:00 07/17/17 18:00 Lab Results 07/18/17 06:30: Urine Opiates Screen Negative, Urine Methadone Screen Negative, Ur Barbiturates Screen Negative, Ur Phencyclidine Scrn Negative, Ur Amphetamines Screen Negative, U Benzodiazepines Scrn Negative, U Oth Cocaine Metabols Negative, U Cannabinoids Screen Negative 07/17/17 19:19: Urine Color Yellow, Urine Appearance Clear, Urine pH 7.0, Ur Specific [place] 1.015, Urine Protein Negative, Urine Glucose (UA) Negative, Urine Ketones Negative, Urine Blood Negative, Urine Nitrate Negative, Urine Bilirubin Negative, Urine Urobilinogen 0.2, Ur Leukocyte Esterase Negative 07/17/17 18:00: Alcohol, Quantitative < 10 07/17/17 18:00: Salicylates < 1 L, Acetaminophen < 10.0 L 07/17/17 18:00: Sodium 134, Potassium 4.1, Chloride 100, Carbon Dioxide 26, Anion Gap 13, BUN 15, Creatinine 0.7, Est GFR ( Amer) > 60, Est GFR (Non- Af Amer) > 60, Random Glucose 94, Calcium 9.9, Total Bilirubin 0.3, AST 26, ALT 29, Alkaline Phosphatase 96, Total Protein 6.8, Albumin 4.0, Globulin 2.8, Albumin/Globulin Ratio 1.4 07/17/17 18:00: WBC 7.3, RBC 3.86, Hgb 10.8 L, Hct 34.8 L, MCV 90.2, MCH 28.0, MCHC 31.0, RDW 15.4 H, Plt Count 345, MPV 9.3, Gran % 66.7, Lymph % (Auto) 23.9 , [place] % (Auto) 7.7 H, Eos % (Auto) 1.6, Baso % (Auto) 0.1, Gran # 4.85, Lymph # 1.7, [place] # 0.6, Eos # 0.1, Baso # 0.01 Vital Signs Temp Pulse Resp BP Pulse Ox 07/19/17 10:37 72 128/82 07/19/17 07:34 97.2 F L 72 20 128/82 07/18/17 15:00 98.5 F 72 20 166/64 H 07/18/17 11:54 98.0 F 61 18 116/71 99 07/18/17 10:14 98.8 F 63 18 119/73 99 07/18/17 08:06 98.2 F 67 18 143/67 98 07/18/17 05:30 59 L 18 119/65 95 07/18/17 04:05 63 19 112/65 92 L 07/18/17 03:00 66 16 141/80 94 L 07/17/17 21:10 70 15 127/74 95 07/17/17 19:10 67 19 133/79 98 07/17/17 17:11 97.9 F 71 18 149/[address] of the head wnl 07/23/17 2x DSM 5 Symptoms Update: Shortly pt is 77yo female with long h/o bipolar disorder, [place] [facility] [place] three [place], pt currently lives at [facility], was referred by [place] for evaluation of disorganized, paranoid behavior, agitation, pt was refuing to take medications, was throwing herself on the floor, was argumentative, pt needs further evaluation and stabilization, meds adjustment. Pt presented with good personal hygiene, good ADLs, was seen at the treatment team meeting, pt presented to have some improvement, pt at times has confusion, earlier was not able to remember this contract technical writer and her name. pt ambulates with more steady gait, 1:1 was d/c, tolerated well. Orthopedist felipe was called, discussed with yesterday. medical team saw pt GI team was called by medical team discussed with Neurologist today pt c/o migraine headaches, pt could continue Fioricet, CT of the head done 07/23/17, WNL. going back to the pt 's psych presentation, pt is pleasant, thought process tangential and circumstantial thought process, less grandiose, more pleasant.yesterday pt said that staff put some pills in her mouth when she sleeps, no such statements today, but pt said "they are tricking me with wrong medications". Of course it is delusions, nobody was putting pills in pt's mouth when she sleeps or "tricking".pt was educated about all meds, this contract technical writer provided pt with the list of her current meds, seems to be appreciative, so far pt was compliant. 07/20/17, tx plan was discussed with pt's POA, risk/benefits and alternatives of meds discussed, pt's POA was appreciative. pt's POA called this contract technical writer over the weekend, asked to call him back, this contract technical writer called 07/23/17, left a message, awaiting for the call back. AIMS 07/23/17 no worsening of the symptoms, severity of abnormal movements overall was1. AIMS 07/19/17 is 4, overall severity of abnormal movements overall was 1. AIMS 07/18/17 is some lip smacking, moving her tongue in and out, smiling and grimacing, chewing movements, AIMS 10, AIMS overall severity of abnormal movements overall was 2 AMIS scale was filed in the chart. as per staff pt is calm, no behavioral outbursts, at time grandiose. Impression: schizoaffective bipolar type r/o bipolar with psychosis Medication Change: Yes (seroquel 75mg hs) Medical Record Reviewed: Yes Mental Status Examination - Cognitive Function Orientation: Person, Place Memory: Impaired Attention: Poor Concentration: Poor Association: WNL Fund of Knowledge: WNL - Mood Mood: Euphoric - Affect Affect: Broad (, expanded) - Speech Speech: Appropriate (overproductive) - Formal Thought Process Formal Thought Process: Delusions, Paranoia ("they are giving me wrong medications..."), Loosening of associations, Circumstantial - Suicidal Ideation Suicidal Ideation: No - Homicidal Ideation Homicidal Ideation: No Goal/Treatment Plan - Goal/Treatment Plan Need for Continued Stay: Remain at risks for inpatient hospitalization, Severe depression anxiety, Discharge may exacerbated symptoms, Severe functional impairment Progress Toward Problem(s) and Goals/Treatment Plan: Milieu/structure/supportive therapy Acetaminophen PRN Dextromethorphan HBr [Robitussin Lingering Cold Long-Acting Coughge] 15 mg PO Q6 PRN Gabapentin [Neurontin] will be given 100mg po tid for neuropathy, anxiety Levothyroxine Sodium [Levoxyl] 100 mcg PO DAILY Lisinopril [Zestril] 20 mg PO DAILY Memantine HCl 10 mg PO BID Polyethylene Glycol 3350 [Miralax] 17 gm PO BID clonazePAM [clonAZEPAM] 0.5 mg PO HS lamoTRIgine [LaMICtal] 100 mg PO BID seroquel 75mg hs for psychosis medical team saw pt for follow up PT working with pt 1:1 d/c Ortho consult called, appreciated neurology consult appreciated pt's POA was called, discussed the plan 07/20/17, called 07/23/17, awaiting for the call back Follow up on labs Will monitor closely Pt was educated about risk/benefits and alternatives of medications, coping strategies (safety plan, suicide prevention) Estimated Date of D/C: 07/31/17 (will monitor closely)
--- NOTE | 2017-07-27 18:46 | PCM.BM ---
Treatment Plan Problems - Problems identified on initial assessmt ALTERED THOUGHT PROCESS Date Initiated: 07/18/17 Time Initiated: 14:15 Assessment reference: JACK FALCON Comment: still questioning her medication MEDS NONADHERENCE Date Initiated: 07/18/17 Time Initiated: 14:15 Assessment reference: JACK FALCON Comment: patient still selectively takes her medication INEFFECTIVE IMPULSE CONTROL Date Initiated: 07/18/17 Time Initiated: 14:16 Assessment reference: JACK FALCON Comment: still irritable Treatment assets and liabiliti Patient Assests: adapts well, cooperative, resourceful, negotiates basic needs, other Patient Liabilities: live alone, medical problems - Milieu Protocol Maintain good personal hygiene: daily Encourage regular showers, daily Remind patient to perform daily oral care, daily Assist patient to perform ADL's Maintain personal safety: daily Educate patient to report safety concerns to staff, daily Monitor environment for contraband/sharps Medication safety: Monitor for expected outcome, potential side effects: daily, Assess barriers to learning: daily, Assess readiness for medication education: daily Milieu Narrative: Milieu/structure/supportive therapy Acetaminophen PRN Dextromethorphan HBr [Robitussin Lingering Cold Long-Acting Coughge] 15 mg PO Q6 PRN Gabapentin [Neurontin] will be given 100mg po tid for neuropathy, anxiety Levothyroxine Sodium [Levoxyl] 100 mcg PO DAILY Lisinopril [Zestril] 20 mg PO DAILY Memantine HCl 10 mg PO BID Polyethylene Glycol 3350 [Miralax] 17 gm PO BID clonazePAM [clonAZEPAM] 0.5 mg PO HS lamoTRIgine [LaMICtal] 100 mg PO BID seroquel 75mg hs for psychosis medical team saw pt for follow up PT working with pt 1:1 d/c Ortho consult called, appreciated neurology consult appreciated pt's POA was called, discussed the plan 07/20/17, called 07/23/17, awaiting for the call back Follow up on labs Will monitor closely Pt was educated about risk/benefits and alternatives of medications, coping strategies (safety plan, suicide prevention) Family Contact Family involvement: Family/SO is involved - Outside Agency [facility] involvment: Information-sharing Agency contact name: [facility] Discharge/Continuing Care - Education Needs Education Needs: Patient Medication, Patient Diagnosis/Disease Process, Patient Coping Skills, Patient Anger Management skills, Patient Placement options, Patient Community resources, Patient Uses of Medical Equipment, Patient Health Practices/Safety, Patient Personal Hygiene/Grooming, Patient Aftercare Safety Plan - Discharge Discharge Criteria: Free of Suicidal thoughts, Free of paranoid thoughts, No longer exhibiting s/s of withdrawal - Treatment Team Participation Patient/Family/SO Statement: Milieu/structure/supportive therapy Acetaminophen PRN Dextromethorphan HBr [Robitussin Lingering Cold Long-Acting Coughge] 15 mg PO Q6 PRN Gabapentin [Neurontin] will be given 100mg po tid for neuropathy, anxiety Levothyroxine Sodium [Levoxyl] 100 mcg PO DAILY Lisinopril [Zestril] 20 mg PO DAILY Memantine HCl 10 mg PO BID Polyethylene Glycol 3350 [Miralax] 17 gm PO BID clonazePAM [clonAZEPAM] 0.5 mg PO HS lamoTRIgine [LaMICtal] 100 mg PO BID seroquel 75mg hs for psychosis medical team saw pt for follow up PT working with pt 1:1 d/c Ortho consult called, appreciated neurology consult appreciated pt's POA was called, discussed the plan 07/20/17, called 07/23/17, awaiting for the call back Follow up on labs Will monitor closely Pt was educated about risk/benefits and alternatives of medications, coping strategies (safety plan, suicide prevention) Treatment Plan Review - Problem ALTERED THOUGHT PROCESS Time Initiated: 14:15 Progress toward outcomes: unchanged MEDS NONADHERENCE Time Initiated: 14:15 Progress toward outcomes: improved INEFFECTIVE IMPULSE CONTROL Time Initiated: 14:16 Progress toward outcomes: improved
[2017-07-28] MEDS: Lubricant Eye Drops UD OU SCH ×4 (08:00→21:59)
[2017-07-28] MEDS: POLYETHYLENE GLYCOL 3350 17 GM/Dose PACKET PO SCH ×2 (08:54→16:12)
[2017-07-28] MEDS: Levothyroxine 100 MCG TAB PO SCH (08:55)
--- NOTE | 2017-07-28 09:17 | PCM.PYCHPN ---
Psychiatric Progress Note - Psychiatric Progress Note Patient seen today, length of contact: 25 min Patient Chief Complaint: "fine" Problems Identified/Issues Discussed: I reviewed recent notes and derrick was interviewed in the day room. She is known to this provider from interviews on this unit the prior weekend. She remains groomed and cooperative. Generally pleasant and denies any new concerns. She doesn't perseverate on her medications this morning. Jokes around with me and another patient. Smiles readily though affect has underlying brittleness. She does not introduce any paranoid delusions into our conversation. She is more focused and less repetitive today. Denies any depression, hopelessness, SI or hallucinations. She doesn't appear to be in any distress or discomfort and denies these symptoms. Staff notes indicate that patient continues to be paranoid, labile and argumentative, mostly about her medications. Expressed delusion during treatment team meeting that staff were placing medications in her mouth while she slept. Generally her behavior has been calmer and she has been attending groups. She is unpredictable but manageable. There were no behavioral issues overnight. Diagnostic Results: schizoaffective bipolar type r/o bipolar with psychosis Medication Change: Yes (seroquel 75mg hs) Medical Record Reviewed: Yes Mental Status Examination - Cognitive Function Orientation: Person, Place Memory: Impaired Attention: Poor Concentration: Poor Association: WNL Fund of Knowledge: WNL - Mood Mood: Euphoric - Affect Affect: Broad (expanded, labile) - Speech Speech: Appropriate (overproductive) - Formal Thought Process Formal Thought Process: Delusions (not expressed today), Paranoia (not expressed today), Loosening of associations, Circumstantial - Suicidal Ideation Suicidal Ideation: No - Homicidal Ideation Homicidal Ideation: No Goal/Treatment Plan - Goal/Treatment Plan Need for Continued Stay: Remain at risks for inpatient hospitalization, Severe depression anxiety, Discharge may exacerbated symptoms, Severe functional impairment Progress Toward Problem(s) and Goals/Treatment Plan: * c/w current tx and plan * No new weekend labs thus far * Vitals reviewed and noted below: 07/26/17 07/26/17 07/26/17 07:31 09:00 16:00 Temperature 97.2 F L Pulse Rate 62 71 64 Respiratory 20 Rate Blood Pressure 111/54 L 104/60 134/70 07/27/17 16:30 Temperature Pulse Rate 64 Respiratory Rate Blood Pressure 134/73 Estimated Date of D/C: 07/31/17 (will monitor closely)
[2017-07-28] MEDS: Apap-Butalbital-Caffeine 325-50-40mg Tab PO PRN (21:56)
--- NOTE | 2017-07-29 00:44 | PN ---
DATE: 07/28/2017 SUBJECTIVE: This patient was seen and evaluated earlier today. The patient is comfortable, not tolerating the diet. No further episodes of bleeding per rectum. PHYSICAL EXAMINATION: VITAL SIGNS: Temperature is 98.1, pulse 64, blood pressure 106/68, respirations 18, and O2 saturation 96%. HEENT: Atraumatic. Anicteric. NECK: Supple. HEART: S1 and S2 heard. LUNGS: Bilateral air entry present. ABDOMEN: Soft. No mass palpable. No tenderness. EXTREMITIES: No edema. No cyanosis. LABORATORY DATA: No recent labs today. Hemoglobin appears stable. IMPRESSION: This 77-year-old patient with bipolar disorder admitted with paranoia, has history of esophageal ulceration, had an episode rectal bleeding. No further episode of bleeding. Hemoglobin appears stable. Other comorbidities include hypertension, hypothyroidism. RECOMMENDATION: Continue MiraLax for constipation on p.r.n. basis. Followup of the hemoglobin and hematocrit. Continue Protonix 40 mg daily. The patient is planned to be discharge next week and we will arrange for an outpatient EGD and colonoscopy to further evaluate rectal bleeding and also followup of the esophageal ulcerations and the patient meanwhile advised to continue the Protonix. Thank you very much for allowing us to participate in the care of this patient. Akash Campbell MD
[2017-07-29] MEDS: Apap-Butalbital-Caffeine 325-50-40mg Tab PO PRN ×3 (06:03→21:35)
[2017-07-29 07:48] VITALS: TEMP 97.4
[2017-07-29] MEDS: Levothyroxine 100 MCG TAB PO SCH (08:18)
[2017-07-29] MEDS: Lubricant Eye Drops UD OU SCH ×2 (08:21→16:59)
[2017-07-29] MEDS: POLYETHYLENE GLYCOL 3350 17 GM/Dose PACKET PO SCH ×3 (09:05→16:59)
--- NOTE | 2017-07-29 09:31 | PCM.PYCHPN ---
Psychiatric Progress Note - Psychiatric Progress Note Patient seen today, length of contact: 25 min Patient Chief Complaint: "fine" Problems Identified/Issues Discussed: I reviewed recent notes and derrick was interviewed at bedside. She remains groomed and cooperative. Generally pleasant and denies any new concerns. She doesn't appear preoccupied with her medications even when this provider introduces the topic. Jokes around with me and her roommate. Smiles readily and she is complimentary. Affect still has mild underlying brittleness. She does not introduce any paranoid delusions into our conversation. She is more focused and less repetitive today. Denies any depression, hopelessness, SI or hallucinations. She doesn't appear to be in any distress or discomfort and denies these symptoms. Staff notes indicate that patient has been in better control. She is less irritable and less fixated on her medications though frequently asks for timing and dosages to be repeated. No paranoid delusions noted yesterday. She has been pleasantly interacting with other patients. Generally her behavior has been in control. Diagnostic Results: schizoaffective bipolar type r/o bipolar with psychosis Medication Change: Yes (seroquel 75mg hs) Medical Record Reviewed: Yes Mental Status Examination - Cognitive Function Orientation: Person, Place Memory: Impaired Attention: Poor Concentration: Poor Association: WNL Fund of Knowledge: WNL - Mood Mood: Euphoric - Affect Affect: Broad (expanded, labile) - Speech Speech: Appropriate (overproductive) - Formal Thought Process Formal Thought Process: Delusions (not expressed today), Paranoia (not expressed today), Loosening of associations, Circumstantial - Suicidal Ideation Suicidal Ideation: No - Homicidal Ideation Homicidal Ideation: No Goal/Treatment Plan - Goal/Treatment Plan Need for Continued Stay: Remain at risks for inpatient hospitalization, Severe depression anxiety, Discharge may exacerbated symptoms, Severe functional impairment Progress Toward Problem(s) and Goals/Treatment Plan: * c/w current tx and plan * Appreciate f/u by Dr. Campbell on 07/28/17~plan for outpatient EGD and colonoscopy. No new inpatient recommendations. * No new weekend labs thus far * Vitals reviewed and noted below: 07/29/17 07/29/17 07/29/17 07:47 09:04 09:12 Temperature 97.4 F L Pulse Rate 61 61 61 Respiratory 20 Rate Blood Pressure 110/66 110/66 110/66 Estimated Date of D/C: 07/31/17 (will monitor closely)
[2017-07-30] MEDS: Levothyroxine 100 MCG TAB PO SCH (07:13)
[2017-07-30] MEDS: POLYETHYLENE GLYCOL 3350 17 GM/Dose PACKET PO SCH ×4 (09:01→17:52)
[2017-07-30] MEDS: Lubricant Eye Drops UD OU SCH ×3 (09:04→21:47)
[2017-07-30] MEDS: Apap-Butalbital-Caffeine 325-50-40mg Tab PO PRN ×2 (13:52→21:46)
--- NOTE | 2017-07-30 14:17 | PCM.PYCHPN ---
Psychiatric Progress Note - Psychiatric Progress Note Patient seen today, length of contact: 30min Patient Chief Complaint: "Father Jay visited me yesterday, I was happy to see him..." Problems Identified/Issues Discussed: Suicide/ homicide prevention, past psychiatric h/o, current psychiatric symptoms , medical problems, risk/benefits and alternatives of medications, medications compliance, coping strategies, substance abuse h/o, relapse prevention, importance of follow up with psychiatrist and therapist, discharge plan. Medical Problems: TD migraines dyslipidemia kidneys stones hypothyroidism Diagnostic Results: 07/17/17 18:00 07/17/17 18:00 Lab Results 07/18/17 06:30: Urine Opiates Screen Negative, Urine Methadone Screen Negative, Ur Barbiturates Screen Negative, Ur Phencyclidine Scrn Negative, Ur Amphetamines Screen Negative, U Benzodiazepines Scrn Negative, U Oth Cocaine Metabols Negative, U Cannabinoids Screen Negative 07/17/17 19:19: Urine Color Yellow, Urine Appearance Clear, Urine pH 7.0, Ur Specific [place] 1.015, Urine Protein Negative, Urine Glucose (UA) Negative, Urine Ketones Negative, Urine Blood Negative, Urine Nitrate Negative, Urine Bilirubin Negative, Urine Urobilinogen 0.2, Ur Leukocyte Esterase Negative 07/17/17 18:00: Alcohol, Quantitative < 10 07/17/17 18:00: Salicylates < 1 L, Acetaminophen < 10.0 L 07/17/17 18:00: Sodium 134, Potassium 4.1, Chloride 100, Carbon Dioxide 26, Anion Gap 13, BUN 15, Creatinine 0.7, Est GFR ( Amer) > 60, Est GFR (Non- Af Amer) > 60, Random Glucose 94, Calcium 9.9, Total Bilirubin 0.3, AST 26, ALT 29, Alkaline Phosphatase 96, Total Protein 6.8, Albumin 4.0, Globulin 2.8, Albumin/Globulin Ratio 1.4 07/17/17 18:00: WBC 7.3, RBC 3.86, Hgb 10.8 L, Hct 34.8 L, MCV 90.2, MCH 28.0, MCHC 31.0, RDW 15.4 H, Plt Count 345, MPV 9.3, Gran % 66.7, Lymph % (Auto) 23.9 , [place] % (Auto) 7.7 H, Eos % (Auto) 1.6, Baso % (Auto) 0.1, Gran # 4.85, Lymph # 1.7, [place] # 0.6, Eos # 0.1, Baso # 0.01 Vital Signs Temp Pulse Resp BP Pulse Ox 07/19/17 10:37 72 128/82 07/19/17 07:34 97.2 F L 72 20 128/82 07/18/17 15:00 98.5 F 72 20 166/64 H 07/18/17 11:54 98.0 F 61 18 116/71 99 07/18/17 10:14 98.8 F 63 18 119/73 99 07/18/17 08:06 98.2 F 67 18 143/67 98 07/18/17 05:30 59 L 18 119/65 95 07/18/17 04:05 63 19 112/65 92 L 07/18/17 03:00 66 16 141/80 94 L 07/17/17 21:10 70 15 127/74 95 07/17/17 19:10 67 19 133/79 98 07/17/17 17:11 97.9 F 71 18 149/[address] of the head wnl 07/23/17 2x Temp Pulse Resp BP Pulse Ox 97.4 F L 66 20 116/67 96 07/29/17 07:47 07/30/17 09:02 07/29/17 07:47 07/30/17 09:02 07/23/17 06:56 DSM 5 Symptoms Update: Shortly pt is 77yo female with long h/o bipolar disorder, h/o been admitted to psychiatric inpatient unit at [facility] [place], most recent was three years ago, pt currently lives at [facility], was referred by [facility] for evaluation of disorganized, paranoid behavior, agitation, pt was refuing to take medications, was throwing herself on the floor, was argumentative, pt needs further evaluation and stabilization, meds adjustment. Pt presented with good personal hygiene, good ADLs, was seen at the treatment team meeting, pt presented to have some improvement, pt at times has confusion, earlier was not able to remember this data analyst report writer and her name. pt ambulates with more steady gait, 1:1 was d/c, tolerated well. Orthopedist felipe Silver appreciated medical team saw pt as well GI team was called, consult appreciated Neurologist consult appreciated pt c/o migraine headaches, pt tolerates Fioricet well, said headache "much better" CT of the head done 07/23/17, WNL. going back to the pt 's psych presentation, pt is pleasant, thought process tangential and circumstantial, pt has periods of forgetfulness, pt remembered that her POA visited her yesterday, pt also said "Father Jay will go to the trip to [facility]". pt said that she tolerates meds well, pt at times is particular about the meds she is on, constantly asking what is the name of the meds, but at the same time did not have refused meds, less paranoid. This data analyst report writer had prolonged conversation with POA today Jay as per POA it is true that he will leave to [facility] tomorrow (pt was able to learn the new information) course of the treatment was discussed all questions answered, concerns addressed. based on report pt did not have XR of the knee, will be contacted about possible steroid injection in knee. PT recommended PT at the [facility]. AIMS 07/30/17 no worsening of the symptoms, severity of abnormal movements overall 1, pt has occasional lip smacking, but much better. AIMS 07/23/17 no worsening of the symptoms, severity of abnormal movements overall was1. AIMS 07/19/17 is 4, overall severity of abnormal movements overall was 1. AIMS 07/18/17 is some lip smacking, moving her tongue in and out, smiling and grimacing, chewing movements, AIMS 10, AIMS overall severity of abnormal movements overall was 2 AMIS scale was filed in the chart. as per staff pt is calm, no behavioral outbursts, at time grandiose, at times forgetful. Impression: schizoaffective bipolar type r/o bipolar with psychosis Medication Change: No (pt tolerated meds well) Medical Record Reviewed: Yes Consults ordered or reviewed: Medical consult appreciated Mental Status Examination - Cognitive Function Orientation: Person, Place Memory: Impaired Attention: Poor (somewhat better) Concentration: Poor (somewhat better) Association: WNL Fund of Knowledge: WNL - Mood Mood: Euphoric - Affect Affect: Broad - Speech Speech: Appropriate (overproductive) - Formal Thought Process Formal Thought Process: Delusions (not expressed today), Paranoia (not expressed today), Loosening of associations, Circumstantial - Suicidal Ideation Suicidal Ideation: No - Homicidal Ideation Homicidal Ideation: No Goal/Treatment Plan - Goal/Treatment Plan Need for Continued Stay: Remain at risks for inpatient hospitalization, Severe depression anxiety, Discharge may exacerbated symptoms, Severe functional impairment Progress Toward Problem(s) and Goals/Treatment Plan: Milieu/structure/supportive therapy Acetaminophen PRN Dextromethorphan HBr [Robitussin Lingering Cold Long-Acting Coughge] 15 mg PO Q6 PRN Gabapentin [Neurontin] will be given 100mg po tid for neuropathy, anxiety Levothyroxine Sodium [Levoxyl] 100 mcg PO DAILY Lisinopril [Zestril] 20 mg PO DAILY Memantine HCl 10 mg PO BID Polyethylene Glycol 3350 [Miralax] 17 gm PO BID clonazePAM [clonAZEPAM] 0.5 mg PO HS lamoTRIgine [LaMICtal] 100 mg PO BID seroquel 75mg hs for psychosis medical team saw pt for follow up PT working with pt 1:1 d/c Ortho consult called, appreciated, XR? neurology consult appreciated pt's POA was called, discussed the plan 07/20/17, called 07/23/17, discussed today 07/30/17 Follow up on labs Will monitor closely Pt was educated about risk/benefits and alternatives of medications, coping strategies (safety plan, suicide prevention) Estimated Date of D/C: 07/31/17 (will monitor closely)
--- NOTE | 2017-07-30 16:36 | RAD ---
PROCEDURE: Bilateral Knee Radiographs. HISTORY: PAIN COMPARISON: None. FINDINGS: BONES: Right Knee: Normal. No fracture. Left Knee: Normal. No fracture. JOINTS: Right Knee: Mild degenerative changes are seen in the patellofemoral joint Left knee: Mild degenerative changes in the patellofemoral joint SOFT TISSUES: Right Knee: Normal. Left Knee: Normal. JOINT EFFUSION: Right Knee: None. Left Knee: None. OTHER FINDINGS: None. IMPRESSION: Mild degenerative changes
[2017-07-31] MEDS: Apap-Butalbital-Caffeine 325-50-40mg Tab PO PRN ×2 (03:14→11:07)
[2017-07-31 08:05] VITALS: RESP 18
[2017-07-31] MEDS: Levothyroxine 100 MCG TAB PO SCH (08:18)
[2017-07-31] MEDS: POLYETHYLENE GLYCOL 3350 17 GM/Dose PACKET PO SCH ×2 (08:54→08:59)
[2017-07-31] MEDS: Lubricant Eye Drops UD OU SCH ×2 (08:58→08:59)
[2017-07-31 09:04] VITALS: BP 127/62; PULSE 68
--- NOTE | 2017-07-31 10:14 | PN ---
DATE: 07/31/2017 UPDATED REPORT LOCATION: In room 531, 2. SUBJECTIVE: The patient complains of bilateral knee pain. Recent x-ray done yesterday on 07/30/2017 shows bilateral knee arthrosis worse on the left than the right but not enough for surgery at this time. She is being going for Euflexxa injections at this time, but would like to continue that regimen in [place] where she lives at the [facility]. I said I will give those injections in the office where she can call up the office when she reaches her [facility] address and we could arrange to get Euflexxa injection to both knees, the last one she had is a year ago with good response, so I could do the same thing in [place], so she does not have to go [place] for her orthopedic doctor. FINAL DIAGNOSIS: Bilateral knee arthrosis, left worse than the right, with Euflexxa in the past. Hermes Marin DO MTDNoy
--- NOTE | 2017-07-31 12:03 | CP.PCM.PN ---
Subjective - Date & Time of Evaluation Date of Evaluation: 07/31/17 Time of Evaluation: 10:50 - Subjective Subjective: Seen and examined at the bedside earlier today, chart reviewed. No acute overnight events reported. Tolerating oral intake. Patient denies nausea, vomiting, or abdominal pain. Having formed stool and denies any melena or bright red blood per rectum. No new complaints. Labs reviewed and H/H is stable. Objective - Vital Signs/Intake and Output Vital Signs (last 24 hours): Temp Pulse Resp BP Pulse Ox 97.4 F L 68 18 127/62 96 07/31/17 08:04 07/31/17 08:58 07/31/17 08:04 07/31/17 08:58 07/23/17 06:56 - Medications Medications: Current Medications Acetaminophen (Tylenol 325mg Tab) 650 mg PO Q6H PRN PRN Reason: pain/fever Last Admin: 07/22/17 02:41 Dose: 650 mg Acetaminophen/Butalbital/Caffeine (Fioricet) 1 tab PO Q4H PRN PRN Reason: Migraine headache Last Admin: 07/31/17 11:07 Dose: 1 tab Al Hydrox/Mg Hydrox/Simethicone (Maalox Plus 30 Ml) 30 ml PO DAILY PRN PRN Reason: Upset Stomach Artificial Tears (Refresh Opth Soln) 0.3 ml OU BID GAVIN Last Admin: 07/31/17 08:59 Dose: 0.3 ml Artificial Tears (Refresh Opth Soln) 0.3 ml OU HS GAVIN Last Admin: 07/30/17 21:47 Dose: 0.3 ml Clonazepam (Klonopin) 0.5 mg PO HS GAVIN PRN Reason: Protocol Last Admin: 07/30/17 21:44 Dose: 0.5 mg Gabapentin (Neurontin) 100 mg PO QAM GAVIN PRN Reason: Protocol Last Admin: 07/31/17 08:53 Dose: 100 mg Gabapentin (Neurontin) 200 mg PO HS GAVIN PRN Reason: Protocol Last Admin: 07/30/17 21:43 Dose: 200 mg Guaifenesin (Robitussin) 100 mg PO Q4H PRN PRN Reason: Cough Lamotrigine (Lamictal) 100 mg PO BID GAVIN PRN Reason: Protocol Last Admin: 07/31/17 08:52 Dose: 100 mg Levothyroxine Sodium (Synthroid) 100 mcg PO 0800 [facility] Last Admin: 07/31/17 08:18 Dose: 100 mcg Lisinopril (Zestril) 20 mg PO DAILY [facility] Last Admin: 07/31/17 08:58 Dose: 20 mg Memantine (Namenda) 10 mg PO BID [facility] Last Admin: 07/31/17 08:59 Dose: 10 mg Polyethylene Glycol (Miralax) 17 gm PO BID [facility] Last Admin: 07/31/17 08:59 Dose: 17 gm Quetiapine Fumarate (Seroquel) 75 [address] [facility] PRN Reason: Protocol Last Admin: 07/30/17 21:44 Dose: 75 mg - Labs Labs: 07/27/17 08:00 07/23/17 22:49 - Constitutional Appears: No Acute Distress - Head Exam Head Exam: NORMOCEPHALIC - Eye Exam Eye Exam: Normal appearance. absent: Scleral icterus - ENT Exam ENT Exam: Mucous Membranes Moist - Neck Exam Neck Exam: Normal Inspection - Respiratory Exam Respiratory Exam: NORMAL BREATHING PATTERN. absent: Respiratory Distress - Cardiovascular Exam Cardiovascular Exam: +S1, +S2 - GI/Abdominal Exam GI & Abdominal Exam: Soft, Normal Bowel Sounds. absent: Guarding, Tenderness, Organomegaly, Rebound - Extremities Exam Extremities Exam: absent: Calf Tenderness, Pedal Edema - Neurological Exam Neurological Exam: Alert, Awake, Oriented x3 Assessment and Plan - Assessment and Plan (Free Text) Assessment: Assessment: Rectal bleeding, differentials to consider is hemorrhoids/fissure, H&H steady, No further bleeding History of colon polyps, last colonoscopy was 2013 no polyps found only diverticulosis Esophageal ulcer Bipolar disorder Hypertension Hypothyroidism Plan: Continue MiraLAX Monitor H&H Continue diet as tolerated continue Protonix 40 daily Discussed with patient that she would benefit from elective colonoscopy/EGD , patient will be given date for this procedure and to continue to take Protonix 40 mg daily. Seen and discussed with Dr. Campbell.
--- NOTE | 2017-07-31 14:18 | PCM.PYCHDC ---
Mental Status Examination - Mental Status Examination Orientation: Person, Place, Situation, Time Memory: Impaired (periods of forgetfulness) Mood: Neutral Speech: Appropriate Attention: WNL (much improved) Concentration: WNL (much improved) Association: Loose (at times lose, but overall better) Fund of Knowledge: Poor Formal Thought Process: Circumstantial Description of patient's judgement and insight: Pt has improved insight into mental and medical illness, pt was compliant with medications and unit rules and regulations, pt was going to groups, was calm, cooperative, socially appropriate, no behavioral incidents, no agitation, no aggression. Psychotic Thoughts and Behaviors: Pt denied v/a/t hallucinations, denied paranoid ideations, pt does not appear to be psychotic, and thought process is goal directed. Suicidal Ideation: No Current Homicidal Ideation?: No Plan: pt adamantly denied thoughts of harming self or others denied intent or plan. Discharge Summary - Discharge Note Reason for Hospitalization: pt was referred by her [facility] for evaluation of disorganized and psychotic behavior , paranoid ideation about meds, pt was not taking meds. over the course of this hospitalization pt improved significantly, no psychosis , no paranoia, but pt is particular abut her meds Psychiatric History (includes Medical, Family, Personal Hx): see HPI Laboratory Data: 07/27/17 08:00 07/23/17 22:49 Lab Results 07/27/17 08:00: WBC 5.9 D, RBC 4.48, Hgb 12.8, Hct 41.2, MCV 92.0, MCH 28.6, MCHC 31.1, RDW 15.2 H, Plt Count 324, MPV 9.8, Gran % 61.7, Lymph % (Auto) 27.9 , [place] % (Auto) 7.6 H, Eos % (Auto) 2.5, Baso % (Auto) 0.3, Gran # 3.65, Lymph # 1.7, [place] # 0.5, Eos # 0.2, Baso # 0.02 07/23/17 22:49: Amylase 129 H, Lipase 82 07/23/17 22:49: Sodium 138, Potassium 4.1, Chloride 104, Carbon Dioxide 21, Anion Gap 16, BUN 23 H, Creatinine 1.1, Est GFR ( Amer) 58, Est GFR (Non- Af Amer) 48, Random Glucose 127 H, Calcium 10.3, Total Bilirubin 0.4, AST 26, ALT 24, Alkaline Phosphatase 94, Total Protein 7.1, Albumin 4.0, Globulin 3.1, Albumin/Globulin Ratio 1.3 07/23/17 22:49: WBC 8.0, RBC 4.37, Hgb 12.4, Hct 39.6, MCV 90.6, MCH 28.4, MCHC 31.3, RDW 15.5 H, Plt Count 364, MPV 9.6, Gran % 58.2, Lymph % (Auto) 31.2, [place] % (Auto) 9.0 H, Eos % (Auto) 1.4 L, Baso % (Auto) 0.2, Gran # 4.68, Lymph # 2.5, [place] # 0.7 H, Eos # 0.1, Baso # 0.02 07/23/17 22:04: POC Glucose (mg/dL) 106 07/18/17 06:30: Urine Opiates Screen Negative, Urine Methadone Screen Negative, Ur Barbiturates Screen Negative, Ur Phencyclidine Scrn Negative, Ur Amphetamines Screen Negative, U Benzodiazepines Scrn Negative, U Oth Cocaine Metabols Negative, U Cannabinoids Screen Negative 07/17/17 19:19: Urine Color Yellow, Urine Appearance Clear, Urine pH 7.0, Ur Specific [place] 1.015, Urine Protein Negative, Urine Glucose (UA) Negative, Urine Ketones Negative, Urine Blood Negative, Urine Nitrate Negative, Urine Bilirubin Negative, Urine Urobilinogen 0.2, Ur Leukocyte Esterase Negative 07/17/17 18:00: Alcohol, Quantitative < 10 07/17/17 18:00: Salicylates < 1 L, Acetaminophen < 10.0 L 07/17/17 18:00: Sodium 134, Potassium 4.1, Chloride 100, Carbon Dioxide 26, Anion Gap 13, BUN 15, Creatinine 0.7, Est GFR ( Amer) > 60, Est GFR (Non- Af Amer) > 60, Random Glucose 94, Calcium 9.9, Total Bilirubin 0.3, AST 26, ALT 29, Alkaline Phosphatase 96, Total Protein 6.8, Albumin 4.0, Globulin 2.8, Albumin/Globulin Ratio 1.4 07/17/17 18:00: WBC 7.3, RBC 3.86, Hgb 10.8 L, Hct 34.8 L, MCV 90.2, MCH 28.0, MCHC 31.0, RDW 15.4 H, Plt Count 345, MPV 9.3, Gran % 66.7, Lymph % (Auto) 23.9 , [place] % (Auto) 7.7 H, Eos % (Auto) 1.6, Baso % (Auto) 0.1, Gran # 4.85, Lymph # 1.7, [place] # 0.6, Eos # 0.1, Baso # 0.01 Vital Signs Temp Pulse Resp BP Pulse Ox 07/31/17 08:58 68 127/62 07/31/17 08:04 97.4 F L 56 L 18 91/49 L 07/30/17 16:00 59 L 148/72 07/30/17 09:02 66 116/67 07/29/17 09:12 61 110/66 07/29/17 09:04 61 110/66 07/29/17 07:47 97.4 F L 61 20 110/66 07/28/17 08:57 67 106/68 07/28/17 07:03 98.1 F 18 L 67 H 106/68 07/27/17 16:30 64 134/73 07/26/17 16:00 64 134/70 07/26/17 09:00 71 104/60 07/26/17 07:31 97.2 F L 62 20 111/54 L 07/25/17 16:00 71 112/61 07/25/17 07:25 97.6 F 622 H 20 94/49 L 07/24/17 16:00 75 99/50 L 07/24/17 12:57 104/60 07/24/17 07:19 97.9 F 71 20 104/60 07/23/17 06:56 98.2 F 75 18 110/73 96 07/21/17 15:00 55 L 122/50 L 07/21/17 08:36 69 167/60 H 07/21/17 07:13 97.7 F 69 20 107/60 07/19/17 16:00 78 144/69 07/19/17 10:37 72 128/82 07/19/17 07:34 97.2 F L 72 20 128/82 07/18/17 15:00 98.5 F 72 20 166/64 H 07/18/17 11:54 98.0 F 61 18 116/71 99 07/18/17 10:14 98.8 F 63 18 119/73 99 07/18/17 08:06 98.2 F 67 18 143/67 98 07/18/17 05:30 59 L 18 119/65 95 07/18/17 04:05 63 19 112/65 92 L 07/18/17 03:00 66 16 141/80 94 L 07/17/17 21:10 70 15 127/74 95 07/17/17 19:10 67 19 133/79 98 07/17/17 17:11 97.9 F 71 18 149/90 99 XR was done 07/30/17, mild degenerative changes Consultations:: List each consultation separately and include: 1. Reason for request. 2. Findings. 3. Follow-up Consultations: Medical consult appreciated, see notes for more detailed information GI consult appreciated, recommended: elective colonoscopy/EGD patient will be given date for this procedure and to continue to take Protonix 40 mg daily Orthopedic consult appreciated [facility] [place] [facility] [place] [phone] [address] [facility] Pt also needs to be followed up with psychiatrist within 7days of discharge Neurologist consult appreciated pt c/o migraine headaches, pt tolerates Fioricet well, said headache "much better" CT of the head done 07/23/17, WNL. PT evaluated pt, recommended therapy as outpatient in the [place] Summary of Hospital Course include:: 1. Description of specific treatment plan utilized for patients during their course of treatmen. 2. Summarize the time- course for resolution of acute symptoms and/or regressed behaviors. 3. Describe issues identified and worked on during hospitalization. 4. Describe medication utilized. 5. Describe medical problems identified and treated. 6. Reassessment of suicide risk Summary of Hospital Course: Shortly pt is 77yo female with long h/o bipolar disorder, h/o been admitted to psychiatric inpatient unit [place] [facility], most recent was three years ago, pt currently lives at [facility], was referred by [place] for evaluation of disorganized, paranoid behavior, agitation, pt was refuing to take medications, was throwing herself on the floor, was argumentative, pt needs further evaluation and stabilization, meds adjustment. Pt presented with good personal hygiene, good ADLs, pt was seen and examined, discussed with staff, med list from [place] reviewed, discussed with , [place] psychiatrist. based on the report from , pt was having TD symptoms on antipsychotic medications that is why seroquel was d/c. on observation pt has some lip smacking, moving her tongue in and out, smiling and grimacing, chewing movements, AIMS 10, AIMS scale was filed in the chart. Pt was seen at the TV area with student, pt presented to be manic, was talking nonstop, was telling how she likes Ehsan, said that she is the thierry one to be admitted to this unit, was extremely friendly/no boundaries, most of pt's statements were not making much sense. pt said that she has h/o headaches and she was taking neurontin, asked about . last admission at [facility] pt was bizarre and psychotic, had visual hallucinations, was delusional that she had an . PT denied smoking "I don't smoke and I don't use drugs. med list from the [place] reviewed: Klonopin 0.5mg hs foranxiety Lamictal 100mg po bid for bipolar Levothyroxine 100mcg Memantine 10mg po daily for dementia Miralax 17gm twice a day Robitussing 5ml q6h prn Tylenol 650 mg po q4h prn for pain will resume meds Medical h/o: HTN, hpothyroidism, UTI, h/o delirium, h/o deverticulosis of intestine, part unspecified, without perforation or abscess. Family h/o: denied suicidal attempts, denied h/o mental illness. pt denied h/o suicidal attempts, but pt has h/o bipolar disorder. 07/17/17 18:00 07/17/17 18:00 Lab Results 07/18/17 06:30: Urine Opiates Screen Negative, Urine Methadone Screen Negative, Ur Barbiturates Screen Negative, Ur Phencyclidine Scrn Negative, Ur Amphetamines Screen Negative, U Benzodiazepines Scrn Negative, U Oth Cocaine Metabols Negative, U Cannabinoids Screen Negative 07/17/17 19:19: Urine Color Yellow, Urine Appearance Clear, Urine pH 7.0, Ur Specific [place] 1.015, Urine Protein Negative, Urine Glucose (UA) Negative, Urine Ketones Negative, Urine Blood Negative, Urine Nitrate Negative, Urine Bilirubin Negative, Urine Urobilinogen 0.2, Ur Leukocyte Esterase Negative 07/17/17 18:00: Alcohol, Quantitative < 10 07/17/17 18:00: Salicylates < 1 L, Acetaminophen < 10.0 L 07/17/17 18:00: Sodium 134, Potassium 4.1, Chloride 100, Carbon Dioxide 26, Anion Gap 13, BUN 15, Creatinine 0.7, Est GFR ( Amer) > 60, Est GFR (Non- Af Amer) > 60, Random Glucose 94, Calcium 9.9, Total Bilirubin 0.3, AST 26, ALT 29, Alkaline Phosphatase 96, Total Protein 6.8, Albumin 4.0, Globulin 2.8, Albumin/Globulin Ratio 1.4 07/17/17 18:00: WBC 7.3, RBC 3.86, Hgb 10.8 L, Hct 34.8 L, MCV 90.2, MCH 28.0, MCHC 31.0, RDW 15.4 H, Plt Count 345, MPV 9.3, Gran % 66.7, Lymph % (Auto) 23.9 , [place] % (Auto) 7.7 H, Eos % (Auto) 1.6, Baso % (Auto) 0.1, Gran # 4.85, Lymph # 1.7, [place] # 0.6, Eos # 0.1, Baso # 0.01 Vital Signs Temp Pulse Resp BP Pulse Ox 07/18/17 11:54 98.0 F 61 18 116/71 99 07/18/17 10:14 98.8 F 63 18 119/73 99 07/18/17 08:06 98.2 F 67 18 143/67 98 07/18/17 05:30 59 L 18 119/65 95 07/18/17 04:05 63 19 112/65 92 L 07/18/17 03:00 66 16 141/80 94 L 07/17/17 21:10 70 15 127/74 95 07/17/17 19:10 67 19 133/79 98 07/17/17 17:11 97.9 F 71 18 149/90 99 pt had one episode of fall, pt was seen by PT and was on 1:1 for 24 hrs, then pt ambulated with more steady gait, 1:1 was d/c, tolerated well. pt was initiated seroquel which was slowly titrated to 75mg po hs, pt tolerated it well, no side effects, no worsening of TD (tardive diskinesia) AIMS 07/30/17 no worsening of the symptoms, severity of abnormal movements overall 1, pt has occasional lip smacking, but much better. AIMS 07/23/17 no worsening of the symptoms, severity of abnormal movements overall was1. AIMS 07/19/17 is 4, overall severity of abnormal movements overall was 1. AIMS 07/18/17 is some lip smacking, moving her tongue in and out, smiling and grimacing, chewing movements, AIMS 10, AIMS overall severity of abnormal movements overall was 2 overall pt improved, reached maximum effect from acute psych hospitalization. 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 course of the treatment was discussed all questions answered, concerns addressed. as per staff pt is calm, no behavioral outbursts, at time grandiose, at times forgetful but overall very pleasant. Over the course of this hospitalization pt was attending groups, pt also had medication management, had therapeutic milieu. At the time of the discharge pt denied been depressed, denied thoughts of harming self or others, denied psychotic symptoms, and pt does not appeared to be psychotic, denied been anxious, pt is not in imminent danger to self or others, will be following up with , information about follow up appointment, time and address provided to the pt, it is [place] responsibility to provide pt with outpatient follow up with PMD as well as specialists (see below for more detailed information). In case pt will need to obtain results of studies pending at discharge pt was provided with contact information of Psychiatric Inpatient unit [phone] as well as Medical Record Department [phone]. Medical consult appreciated, see notes for more detailed information GI consult appreciated, recommended: elective colonoscopy/EGD patient will be given date for this procedure and to continue to take Protonix 40 mg daily Orthopedic consult appreciated recommended to have an [place] office [place] [phone] [address] [facility] Pt also needs to be followed up with psychiatrist within 7days of discharge Neurologist consult appreciated pt c/o migraine headaches, pt tolerates Fioricet well, said headache "much better" CT of the head done 07/23/17, WNL. PT evaluated pt, recommended therapy as outpatient in the [place] pt was provided with prescriptions for all of medications (two weeks supply and one refill for psychotropics and one week supply for medical meds) Pt was educated about safety plan in case of worsening of symptoms or in case of suicidal or homicidal ideation call 911 or go to the nearest ER, also was educated to take meds as prescribed and stay away from drugs, pt verbalized understanding. - Diagnosis (1) Bipolar 1 disorder, depressed Current Visit: Yes Status: Chronic Priority: High Comment: Patient is admitted to psych unit for psychiatric evaluation and medical management (2) Delirium due to another medical condition Current Visit: No Status: Acute - Final Diagnosis (DSM 5) Condition upon Discharge: FAIR Disposition: HOME/ ROUTINE Follow-up Treatment Plan: At the time of the discharge pt denied been depressed, denied thoughts of harming self or others, denied psychotic symptoms, and pt does not appeared to be psychotic, denied been anxious, pt is not in imminent danger to self or others, will be following up with , information about follow up appointment, time and address provided to the pt, it is [place] responsibility to provide pt with outpatient follow up with PMD as well as specialists (see below for more detailed information). In case pt will need to obtain results of studies pending at discharge pt was provided with contact information of Psychiatric Inpatient unit [phone] as well as Medical Record Department [phone]. Medical consult appreciated, see notes for more detailed information GI consult appreciated, recommended: elective colonoscopy/EGD patient will be given date for this procedure and to continue to take Protonix 40 mg daily Orthopedic consult appreciated recommended to [facility] [place] [phone] [address] [facility] Pt also needs to be followed up with psychiatrist within 7days of discharge Neurologist consult appreciated pt c/o migraine headaches, pt tolerates Fioricet well, said headache "much better" CT of the head done 07/23/17, WNL. PT evaluated pt, recommended therapy as outpatient in the [place] pt was provided with prescriptions for all of medications (two weeks supply and one refill for psychotropics and one week supply for medical meds) Pt was educated about safety plan in case of worsening of symptoms or in case of suicidal or homicidal ideation call 911 or go to the nearest ER, also was educated to take meds as prescribed and stay away from drugs, pt verbalized understanding. Prescriptions/Medication Reconciliation: Acetaminophen [Tylenol 325mg tab] 650 mg PO Q6H PRN #1 tab PRN Reason: pain/fever Acetaminophen/Butalbital/Caf [Fioricet] 1 tab PO Q4H PRN #1 tab PRN Reason: Migraine Headache Aluminum Hydroxide/Magnesium [Maalox Plus 30 ml] 30 ml PO DAILY PRN #1 udc PRN Reason: Upset Stomach clonazePAM [Klonopin] 0.5 mg PO HS #1 tab Gabapentin [Neurontin] 100 mg PO QAM #1 cap Gabapentin [Neurontin] 200 mg PO HS #1 cap lamoTRIgine [Lamictal] 100 mg PO BID #1 tab Levothyroxine [Synthroid] 100 mcg PO 0800 #1 tab Lisinopril [Zestril] 20 mg PO DAILY #1 tab Memantine [Namenda] 10 mg PO BID #1 tab Polyethylene Glycol 3350 [Miralax] 17 gm PO BID #1 packet Polyvinyl Alcohol/Povidone [Refresh Opth Soln] 0.3 ml OU HS #1 drpette Polyvinyl Alcohol/Povidone [Refresh Opth Soln] 0.3 ml OU BID #1 drpette QUEtiapine [Seroquel] 75 mg PO HS #1 tab - Smoking Cessation Smoking Cessation Medication prescribed: No Reason for not providing: pt denies smoking - Antipsychotic Medications Pt discharged on 2 or more routine antipsychotic medications: No
== END 2017-07-31 16:35 | disposition home or self-care (01) | DRG 885 ==
LOC: ED 16:15 → ERH 07-18 10:22 → PSYC 07-18 13:23 → ERH 07-22 22:46 → PSYC 07-22 22:47
PROVIDERS: ADMIT Psychiatry & Neurology Psychiatry; ATTEND Psychiatry & Neurology Psychiatry
DX: F31.30 Bipolar disorder, current episode depressed, mild or moderate severity, unspecified (principal); F05 Delirium due to known physiological condition; G62.9 Polyneuropathy, unspecified; K22.10 Ulcer of esophagus without bleeding; K62.5 Hemorrhage of anus and rectum; F25.0 Schizoaffective disorder, bipolar type; F03.90 Unspecified dementia, unspecified severity, without behavioral disturbance, psychotic disturbance, mood disturbance, and anxiety; G43.909 Migraine, unspecified, not intractable, without status migrainosus; E03.9 Hypothyroidism, unspecified; I12.9 Hypertensive chronic kidney disease with stage 1 through stage 4 chronic kidney disease, or unspecified chronic kidney disease; N18.9 Chronic kidney disease, unspecified; M17.0 Bilateral primary osteoarthritis of knee; E78.5 Hyperlipidemia, unspecified; N20.0 Calculus of kidney; K59.00 Constipation, unspecified; I25.10 Atherosclerotic heart disease of native coronary artery without angina pectoris; K29.70 Gastritis, unspecified, without bleeding; K57.90 Diverticulosis of intestine, part unspecified, without perforation or abscess without bleeding; Z88.5 Allergy status to narcotic agent; Z86.010 Personal history of colon polyps; Z95.5 Presence of coronary angioplasty implant and graft